=== PATIENT | male | born 1955 | race Caucasian/White ===

== ENCOUNTER 2016-11-10 20:05 | Inpatient (IN) | payer OTHER ==
[~2016-11-10] VITALS: Ht 170.2 cm; Wt 127.2 kg
[~2016-11-10 20:05] MED LIST: BUDE180A IH; PANT40TA3 PO; PRED-220 PO; PRED5TAB PO
[2016-11-10] MEDS ORDERED: ALBUTEROL SULFATE 2.5 MG/3 ML NEBU. NEB ONE (20:15)
[2016-11-10] MEDS ORDERED: IV NORMAL SALINE 1000ML BAG 1,000 ML IV SCH (20:48)
--- NOTE | 2016-11-10 20:57 | PHYS DOC ---
Past Medical History Past Medical History: Anxiety, COPD, Diabetes-Type II, Hypertension Past Surgical History: Other Additional Past Surgical Histo: leg sx, hernia Alcohol Use: Heavy Drug Use: None Adult General Chief Complaint Chief Complaint: SHORTNESS OF BREATH HPI HPI Patient is a 61 year old male who presents with complaint of shortness of breath. Patient states his symptoms became severe starting this morning. Patient has history of COPD and is currently on controller medications for his symptoms. Patient states that he has been having severe difficulty throughout the day. Patient currently is staying at [facility] who called EMS. On EMS arrival the patient was found to have an O2 sats rate of 84% on room air. Patient is not on continuous oxygen as an outpatient. The patient was taking breathing treatments prior to arrival with minimal relief in symptoms. Patient has not had any fevers and denies any chest pain currently. Patient has not had productive cough. Review of Systems Review of Systems Constitutional: Denies fever or chills [] Eyes: Denies change in visual acuity, redness, or eye pain [] HENT: Denies nasal congestion or sore throat [] Respiratory: Shortness of breath [] Cardiovascular: Denies chest pain or edema [] GI: Denies abdominal pain, nausea, vomiting, bloody stools or diarrhea [] : Denies dysuria or hematuria [] Musculoskeletal: Denies back pain or joint pain [] Integument: Denies rash or skin lesions [] Neurologic: Denies headache, focal weakness or sensory changes [] Current Medications Current Medications Current Medications Medications (Trade) Dose Ordered Sig/Neida Start Time Stop Time Status Last Admin Dose Admin Albuterol Sulfate 5 mg 5 mg 1X ONCE 11/10/16 20:15 11/10/16 20:17 DC 11/10/16 20:24 5 MG Methylprednisolone Sodium Succinate (Solu-Medrol 125mg Vial) 125 mg 1X ONCE 11/10/16 21:00 11/10/16 21:01 DC 11/10/16 21:16 125 MG Sodium Chloride (Iv Sodium Chloride 0.9% 1000ml Bag) 1,000 ml @ 100 mls/hr Q10H 11/10/16 20:48 11/11/16 06:47 11/10/16 21:17 100 MLS/HR Allergies Allergies Allergies Coded Allergies Type Severity Reaction Last Updated Verified hydrocodone Allergy Intermediate 08/13/16 Yes sweet potato Adverse Reaction Mild Nausea and Vomiting 08/13/16 Yes Physical Exam Physical Exam Constitutional: Alert, afebrile, appears in moderate to severe respiratory distress. [] HENT: Normocephalic, atraumatic, bilateral external ears normal, oropharynx moist, no oral exudates, nose normal. [] Eyes: PERRLA, EOMI, conjunctiva normal, no discharge. [] Neck: Normal range of motion, no tenderness, supple, no stridor. [] Cardiovascular: Tachycardia, regular rhythm, no murmur [] Lungs & Thorax: Moderate to severe restriction of air movement bilaterally, expiratory wheezes bilaterally, along expiratory phase [] Abdomen: Bowel sounds normal, soft, no tenderness, no masses, no pulsatile masses. [] Skin: Warm, dry, no erythema, no rash. [] Back: No tenderness, no CVA tenderness. [] Extremities: No tenderness, no cyanosis, no clubbing, ROM intact, no edema. [] Neurologic: Alert and oriented X 3, normal motor function, normal sensory function, no focal deficits noted. [] Current Patient Data Vital Signs Vital Signs Date Time Temp Pulse Resp B/P Pulse Ox O2 Delivery O2 Flow Rate FiO2 11/10/16 20:25 92 Nasal Cannula 2.0 Lab Values Laboratory Tests Test 11/10/16 20:20 White Blood Count 13.1x10^3/uL (4.0-11.0) H Red Blood Count 4.29x10^6/uL (4.30-5.70) L Hemoglobin 9.2g/dL (13.0-17.5) L Hematocrit 31.3% (39.0-53.0) L Mean Corpuscular Volume 73fL (79-100) L Mean Corpuscular Hemoglobin 22pg (25-35) L Mean Corpuscular Hemoglobin Concent 30g/dL (31-37) L Red Cell Distribution Width 21.8% (11.5-14.5) H Platelet Count 296x10^3/uL (140-400) # Neutrophils (%) (Auto) 70% (31-73) Lymphocytes (%) (Auto) 23% (24-48) L Monocytes (%) (Auto) 4% (0-9) Eosinophils (%) (Auto) 2% (0-3) Basophils (%) (Auto) 1% (0-3) Neutrophils # (Auto) 9.2x10^3uL (1.8-7.7) H Lymphocytes # (Auto) 3.1x10^3/uL (1.0-4.8) Monocytes # (Auto) 0.6x10^3/uL (0.0-1.1) Eosinophils # (Auto) 0.2x10^3/uL (0.0-0.7) Basophils # (Auto) 0.1x10^3/uL (0.0-0.2) Platelet Estimate Adequate (ADEQUATE) Polychromasia Slight Hypochromasia Mod Basophilic Stippling Present Anisocytosis Mod Microcytosis Slight Tear Drop Cells Few Ovalocytes Mod Sodium Level 139mmol/L (136-145) Potassium Level 4.4mmol/L (3.5-5.1) Chloride Level 102mmol/L (98-107) Carbon Dioxide Level 26mmol/L (21-32) Anion Gap 11 (6-14) Blood Urea Nitrogen 13mg/dL (8-26) Creatinine 0.9mg/dL (0.7-1.3) Estimated GFR (Cockcroft-Gault) 86.4 BUN/Creatinine Ratio 14 (6-20) Glucose Level 137mg/dL (70-99) H Lactic Acid Level 3.2mmol/L (0.4-2.0) H Calcium Level 8.8mg/dL (8.5-10.1) Total Bilirubin 0.1mg/dL (0.2-1.0) L Aspartate Amino Transferase (AST) 27U/L (15-37) Alanine Aminotransferase (ALT) 30U/L (16-63) Alkaline Phosphatase 104U/L (46-116) Troponin I Quantitative < 0.017ng/mL (0.000-0.055) Total Protein 6.8g/dL (6.4-8.2) Albumin 3.4g/dL (3.4-5.0) Albumin/Globulin Ratio 1.0 (1.0-1.7) Laboratory Tests 11/10/16 20:20 Laboratory Tests 11/10/16 20:20 EKG EKG Interpreted by me: Heart rate 113, sinus tachycardia, normal intervals, normal axis, no acute ST/T-wave abnormalities present [] Radiology/Procedures Radiology/Procedures One view AP chest x-ray interpreted by me: No infiltrate, no effusion, normal cardiac silhouette [] Course & Med Decision Making Course & Med Decision Making Pertinent Labs and Imaging studies reviewed. (See chart for details) Patient was given additional albuterol treatments and IV Solu-Medrol in the emergency department. On reevaluation, patient continues to display work of breathing and was transitioned to BiPAP. After transitioning to BiPAP, patient' s work of breathing appears improved. Patient found to have elevated white count and elevated lactic acid level. Patient's chest x-ray does not show any visible evidence of pneumonia. Patient's elevated lactic acid level may be due to prolonged hypoxia prior to treatment. I spoke with Dr. Richmond who accepted care patient in hospital. Patient will be continued on IV fluids, breathing treatments, BiPAP, and Solu-Medrol for treatment. Critical care time excluding procedures: 50 minutes Dragon Disclaimer Dragon Disclaimer This electronic medical record was generated, in whole or in part, using a voice recognition dictation system. Departure Departure Impression: Primary Impression: Acute and chronic respiratory failure Additional Impressions: Elevated lactic acid level COPD exacerbation Microcytic anemia Disposition: ADMITTED INPATIENT Admitting Physician: Other Condition: GUARDED Referrals: NO PCP (PCP) Problem Qualifiers PAUL VILLALOBOS MD Nov 10, 2016 20:57
[2016-11-10] MEDS ORDERED: methylPREDNISolone SOD SUCC PF 125 MG/2 ML VIAL. IV ONE (21:00)
[2016-11-10 21:09] LABS: BASO # 0.1 x10^3/uL (0.0-0.2); BASO % 1 % (0-3); EOS % 2 % (0-3); HEMATOCRIT 31.3 % (39.0-53.0); HEMOGLOBIN 9.2 g/dL (13.0-17.5); LYMPH # 3.1 x10^3/uL (1.0-4.8); LYMPH % 23 % (24-48); MEAN CORPUSCULAR HEMOGLOBIN 22 pg (25-35); MEAN CORPUSCULAR HGB CONC 30 g/dL (31-37); MEAN CORPUSCULAR VOLUME 73 fL (79-100); MONO % 4 % (0-9); NEUT % 70 % (31-73); PLATELET COUNT 296 x10^3/uL (140-400); RED BLOOD COUNT 4.29 x10^6/uL (4.30-5.70); RED CELL DISTRIBUTION WIDTH 21.8 % (11.5-14.5); WHITE BLOOD COUNT 13.1 x10^3/uL (4.0-11.0)
[2016-11-10 21:27] LABS: CALCIUM 8.8 mg/dL (8.5-10.1); CREATININE 0.9 mg/dL (0.7-1.3); GFR 86.4; POTASSIUM 4.4 mmol/L (3.5-5.1)
[2016-11-10 21:33] LABS: ALBUMIN 3.4 g/dL (3.4-5.0); TOTAL BILIRUBIN 0.1 mg/dL (0.2-1.0); TOTAL PROTEIN 6.8 g/dL (6.4-8.2)
[2016-11-10 21:54] LABS: OBC FLU VALID
[2016-11-10 22:12] LABS: PLT ESTIMATE ADEQUATE (ADEQUATE)
[2016-11-10 22:13] LABS: ANISOCYTOSIS MOD; HYPOCHROMIA MOD; MICROCYTOSIS SLIGHT; OVALOCYTES MOD; POLYCHROMASIA SLIGHT; TEAR DROP CELLS FEW
--- NOTE | 2016-11-10 22:28 | ACF ---
Admission Forms Criteria COPD Clinical Indications for Admission to Inpatient Care (Place 'X' for any and all applicable criteria): Admission is indicated for ANY ONE of the following (1)(2)(3): [ ]I. Acute exacerbation by high-risk comorbidity (e.g., pneumonia, dysrhythmia, heart failure, pleural effusion, pneumothorax) or severe underlying COPD (e.g., steroid dependent) [X]II. Inpatient admission required rather than observation care (see Chronic Obstructive Pulmonary Disease: Observation Care) because of ANY ONE of the following: [X]a) New or pre-existing signs or symptoms of COPD (eg, dyspnea or Tachypnea at rest or with minimal activity) that persist despite outpatient and observation care treatment [ ]b) New-onset hypoxemia (room air SaO2 less than 90%, PO2 less than 60 mm Hg (8.0 kPa)) that persists despite outpatient and observation care treatment [ ]c) Worsening of pre-existing hypoxemia (eg, new or increased requirement for supplemental oxygen to maintain oxygenation at baseline level) that persists despite outpatient and observation care treatment, with oxygen treatment needs performable only in acute inpatient setting [ ]d) Hypercarbia (PCO2 greater than 40 mm Hg (5.3 kPa))-induced respiratory acidosis (pH less than 7.35) that persists despite outpatient and observation care treatment [ ]e) Supplemental oxygen or respiratory treatments for over 24 hours that are performable only in acute inpatient setting [ ]f) Chest tube placement with active evacuation (e.g., suction, drainage) (5) [ ]g) Other condition, treatment or monitoring requiring inpatient admission [ ]III. Planned invasive surgical or diagnostic procedures requiring acute- care hospitalization [ ]IV. Acute respiratory failure (e.g., uncompensated hypercarbia, severe hypoxemia) [ ]V. Severe comorbid condition (e.g., severe steroid myopathy, acute vertebral fracture) that has acutely worsened pulmonary function [ ]. Confusion state, lethargy, obtundation, stupor or coma Extended stay beyond goal length of stay may be needed for (31)(32): [ ]a ) Respiratory Failure. [ ]b) Severe or persisting hypoxemia or hypercarbia [ ]c) Severe or persistent dyspnea [ ]d) Comorbidities (e.g. chronic heart failure, atrial fibrillation with rapid response, pneumonia) [ ]e) Malnutrition The original [facility] content created by [facility] has been revised. The portions of the content which have been revised are identified through the use of italic text or in bold, and [facility] has neither reviewed nor approved the modified material. All other unmodified content is copyright [facility]. Please see references footnoted in the original [facility] edition 2016 ELIDIA FRYE Nov 10, 2016 22:28
[2016-11-10] MEDS ORDERED: LEVOFLOXACIN PER PHARMACY MC PRN (22:45)
[2016-11-10 22:48] LABS: HCO3 ABG 23 mmol/L (21-28); PCO2 ABG 40 mmHg (35-46); PH ABG 7.38 (7.35-7.45); PO2 ABG 101 mmHg (65-108); SAT O2 ABG 96 % (92-99)
[2016-11-10] MEDS ORDERED: ACETAMINOPHEN 325 MG TABLET. PO PRN (23:00)
[2016-11-10] MEDS: IV NORMAL SALINE 1000ML BAG 1,000 ML IV SCH (23:00)
[2016-11-10] MEDS ORDERED: ONDANSETRON PF 4 MG/2 ML VIAL. IV PRN (23:00)
[2016-11-10 23:10] VITALS: BP 100/46
--- NOTE | 2016-11-10 23:26 | ACF ---
Admission Forms Criteria RESPIRATORY FAILURE [facility] Clinical Indications for Admission to Inpatient Care (Place 'X' for any and all applicable criteria): Hospital admission is needed for appropriate care of the patient because of acute respiratory failure or insufficiency as indicated by ANY ONE of the following(1)(2)(3)(4)(5)(6)(7)(8): [X]I. Mechanical ventilation needed (acute invasive or noninvasive) [ ]II. Severe ventilation deficit as indicated by ANY ONE of the following (9) [ ]a) Respiratory acidosis (pH less than 7.32 and partial pressure of carbon dioxide greater than 40 mm Hg (5.3 kPa)) [ ]b) Partial pressure of carbon dioxide greater than 44 mm Hg (5.9 kPa ) (new) [ ]c) Airflow measurements less than 25% of predicted (eg, peak expiratory flow rate less than 100 L/minute) [ ]d) Forced vital capacity less than 15 mL/kg of ideal body weight, or 50% decrease in vital capacity from baseline [ ]III. Noncardiac pulmonary edema not resolving with rapid emergency treatment (8) [ ]IV. Severe respiratory distress as indicated by ANY ONE of the following: [ ]a) Severe tachypnea (respiratory rate greater than 30, greater than 45 for 6-month-old, greater than 60 for ) [ ]b) Severe hypoxemia (partial pressure of oxygen less than 50 mm Hg ( 6.7 kPa) on greater than 50% oxygen or partial pressure of oxygen to FIO2 ratio less than 200) [ ]c) Mental status deterioration from respiratory disease [ ]V. Airway obstruction or inadequate protection [A](10)(11) The original [employer] content created by [employer] has been revised. The portions of the content which have been revised are identified through the use of italic text or in bold, and [employer] has neither reviewed nor approved the modified material. All other unmodified content is copyright [employer]. Please see references footnoted in the original [employer] edition 2016 Admission Criteria Met?: Yes ELIDIA FRYE Nov 10, 2016 23:26
[2016-11-11 00:15] LABS: CKMB MASS 1.5 ng/mL (0.0-3.6)
[2016-11-11] MEDS: ALPRAZolam 0.5 MG TABLET PO PRN (00:51)
[2016-11-11] MEDS: methylPREDNISolone SOD SUCC PF 40 MG/ML VIAL. IV SCH ×5 (00:55→23:20)
--- NOTE | 2016-11-11 01:23 | EKG ---
[facility] [address] [place] [address] Test Date: 2016-11-10 Test Time: 20:15:56 Pat Name: EMILY PERDOMO Department: Room: [facility] Gender: M Gemologist: : 1955 Requested By: PAUL VILLALOBOS Order Number: [id number] Reading MD: Job Stephens Measurements Intervals [place] Rate: 113 P: NC: QRS: 60 QRSD: 78 T: 79 QT: 332 QTc: 461 Interpretive Statements SINUS TACHYCARDIA NON-SPECIFIC ST/T CHANGES Electronically Signed On 11-12-2016 8:17:56 CDT by Job Stephens
[2016-11-11 03:00] VITALS: BP 120/67
[2016-11-11 07:00] VITALS: BP 111/63
[2016-11-11] MEDS: IPRATRPIUM/ALBUTEROL 0.5/2.5MG 3 ML NEBU. NEB SCH ×4 (07:24→19:30)
--- NOTE | 2016-11-11 08:32 | RAD ---
Portable chest, 11/10/2016: History: Dyspnea Comparison is made to a study from 08/07/2016. The heart size and pulmonary vascularity are normal. The patient positioning is lordotic. Hazy opacities projected over the lower chest are likely on a technical basis in this large patient. No definite infiltrates or pleural fluid is seen. IMPRESSION: No acute cardiopulmonary abnormality is detected.
[2016-11-11 08:48] LABS: CALCIUM 8.9 mg/dL (8.5-10.1); CREATININE 0.8 mg/dL (0.7-1.3); GFR 98.9; POTASSIUM 4.4 mmol/L (3.5-5.1)
[2016-11-11 08:52] LABS: BASO % 0 % (0-3); EOS % 0 % (0-3); HEMATOCRIT 31.6 % (39.0-53.0); HEMOGLOBIN 9.5 g/dL (13.0-17.5); LYMPH # 1.8 x10^3/uL (1.0-4.8); LYMPH % 14 % (24-48); MEAN CORPUSCULAR HEMOGLOBIN 22 pg (25-35); MEAN CORPUSCULAR HGB CONC 30 g/dL (31-37); MEAN CORPUSCULAR VOLUME 72 fL (79-100); MONO % 1 % (0-9); NEUT % 85 % (31-73); PLATELET COUNT 291 x10^3/uL (140-400); RED BLOOD COUNT 4.41 x10^6/uL (4.30-5.70); RED CELL DISTRIBUTION WIDTH 22.2 % (11.5-14.5); WHITE BLOOD COUNT 12.6 x10^3/uL (4.0-11.0)
[2016-11-11] MEDS: IV NORMAL SALINE 1000ML BAG 1,000 ML IV SCH ×2 (09:04→15:00)
[2016-11-11 09:39] LABS: ANISOCYTOSIS PRESENT; HYPOCHROMIA PRESENT; MICROCYTOSIS PRESENT; PLT ESTIMATE ADEQUATE (ADEQUATE); POLYCHROMASIA PRESENT
--- NOTE | 2016-11-11 09:51 | PDOC1 ---
History and Physical Past Medical History Cardiovascular: HTN Pulmonary: COPD, Pneumonia GI: Other Psych: Addictions Past Surgical History Past Surgical History: Other Family History Family History: No Significant, Hypertension Social History Smoke: <1 pack per day ALCOHOL: occassional Drugs: Marijuana Current Problem List Problem List Problems Medical Problems: (1) Acute and chronic respiratory failure Status: Acute (2) COPD exacerbation Status: Acute (3) Elevated lactic acid level Status: Acute (4) Microcytic anemia Status: Acute Current Medications Current Medications Current Medications Medications (Trade) Dose Ordered Sig/Neida Start Time Stop Time Status Last Admin Dose Admin Acetaminophen (Tylenol) 650 mg PRN Q4HRS PRN 11/10/16 23:00 11/11/16 22:59 Albuterol Sulfate (Ventolin Neb Soln) 5 mg 1X ONCE 11/10/16 20:15 11/10/16 20:17 DC 11/10/16 20:24 5 MG Albuterol/ Ipratropium (Duoneb) 3 ml RTQID 11/11/16 08:00 11/12/16 07:59 11/11/16 07:24 3 ML Alprazolam (Xanax) 0.5 mg PRN Q8HRS PRN 11/11/16 00:30 11/11/16 00:51 0.5 MG Levofloxacin/ Dextrose (LEVAQUIN 500mg PREMIX) 100 ml @ 100 mls/hr Q24H 11/11/16 21:00 Levofloxacin/ Dextrose 1 each 1 each PRN DAILY PRN 11/10/16 22:45 Methylprednisolone Sodium Succinate (Solu-Medrol 40mg Vial) 60 mg Q6HRS 11/11/16 00:00 11/11/16 05:53 60 MG Methylprednisolone Sodium Succinate (Solu-Medrol 125mg Vial) 125 mg 1X ONCE 11/10/16 21:00 11/10/16 21:01 DC 11/10/16 21:16 125 MG Ondansetron HCl 4 mg 4 mg PRN Q8HRS PRN 11/10/16 23:00 11/11/16 22:59 Sodium Chloride (Iv Sodium Chloride 0.9% 1000ml Bag) 1,000 ml @ 125 mls/hr Q8H 11/10/16 23:00 11/11/16 22:59 11/11/16 09:04 125 MLS/HR Allergies Allergies Allergies Coded Allergies Type Severity Reaction Last Updated Verified hydrocodone Allergy Intermediate 08/13/16 Yes sweet potato Adverse Reaction Mild Nausea and Vomiting 08/13/16 Yes ROS Review of System CONSTITUTIONAL: No fever or chills EYES: No recent changes SKIN: No rash or itching CARDIOVASCULAR: No chest pain, syncope, palpitations, or edema RESPIRATORY: SOB or cough GASTROINTESTINAL: No nausea, vomiting or abdominal pain NEUROLOGICAL: No headaches or weakness ENDOCRINE: No cold or heat intolerance GENITOURINARY: No urgency or frequency of urination MUSCULOSKELETAL: No back pain or joint pain LYMPHATICS: No enlarged lymph nodes PSYCHIATRIC: No anxiety or depression Physical Exam Physical Exam GEN.: apparent distress. Alert and oriented.OBESE, ON BIPAP HEENT: Head is normocephalic, atraumatic NECK: Supple. NO JVD LUNGS: decreased BS, WHEEZING EXP HEART: RRR, S1, S2 present. Peripheral pulses intact ABDOMEN: Soft, nontender. Positive bowel sounds. EXTREMITIES: Without any cyanosis. NEUROLOGIC: Normal speech, normal tone PSYCHIATRIC: Normal affect, normal mood. SKIN: DRY Vitals Vitals Vital Signs Date Time Temp Pulse Resp B/P Pulse Ox O2 Delivery O2 Flow Rate FiO2 11/11/16 07:26 Nasal Cannula 2.0 11/11/16 07:24 100 11/11/16 07:00 97.3 94 24 111/63 97.3 Labs Labs Laboratory Tests Test 11/10/16 20:20 11/10/16 21:24 11/10/16 22:34 11/11/16 08:10 White Blood Count 13.1x10^3/uL (4.0-11.0) 12.6x10^3/uL (4.0-11.0) Red Blood Count 4.29x10^6/uL (4.30-5.70) 4.41x10^6/uL (4.30-5.70) Hemoglobin 9.2g/dL (13.0-17.5) 9.5g/dL (13.0-17.5) Hematocrit 31.3% (39.0-53.0) 31.6% (39.0-53.0) Mean Corpuscular Volume 73fL (79-100) 72fL (79-100) Mean Corpuscular Hemoglobin 22pg (25-35) 22pg (25-35) Mean Corpuscular Hemoglobin Concent 30g/dL (31-37) 30g/dL (31-37) Red Cell Distribution Width 21.8% (11.5-14.5) 22.2% (11.5-14.5) Platelet Count 296x10^3/uL (140-400) 291x10^3/uL (140-400) Neutrophils (%) (Auto) 70% (31-73) 85% (31-73) Lymphocytes (%) (Auto) 23% (24-48) 14% (24-48) Monocytes (%) (Auto) 4% (0-9) 1% (0-9) Eosinophils (%) (Auto) 2% (0-3) 0% (0-3) Basophils (%) (Auto) 1% (0-3) 0% (0-3) Neutrophils # (Auto) 9.2x10^3uL (1.8-7.7) 10.6x10^3uL (1.8-7.7) Lymphocytes # (Auto) 3.1x10^3/uL (1.0-4.8) 1.8x10^3/uL (1.0-4.8) Monocytes # (Auto) 0.6x10^3/uL (0.0-1.1) 0.1x10^3/uL (0.0-1.1) Eosinophils # (Auto) 0.2x10^3/uL (0.0-0.7) 0.1x10^3/uL (0.0-0.7) Basophils # (Auto) 0.1x10^3/uL (0.0-0.2) 0.0x10^3/uL (0.0-0.2) Platelet Estimate Adequate (ADEQUATE) Adequate (ADEQUATE) Polychromasia Slight Present Hypochromasia Mod Present Basophilic Stippling Present Anisocytosis Mod Present Microcytosis Slight Present Tear Drop Cells Few Ovalocytes Mod Sodium Level 139mmol/L (136-145) 139mmol/L (136-145) Potassium Level 4.4mmol/L (3.5-5.1) 4.4mmol/L (3.5-5.1) Chloride Level 102mmol/L (98-107) 103mmol/L (98-107) Carbon Dioxide Level 26mmol/L (21-32) 23mmol/L (21-32) Anion Gap 11 (6-14) 13 (6-14) Blood Urea Nitrogen 13mg/dL (8-26) 11mg/dL (8-26) Creatinine 0.9mg/dL (0.7-1.3) 0.8mg/dL (0.7-1.3) Estimated GFR (Cockcroft-Gault) 86.4 98.9 BUN/Creatinine Ratio 14 (6-20) Glucose Level 137mg/dL (70-99) 206mg/dL (70-99) Lactic Acid Level 3.2mmol/L (0.4-2.0) 2.7mmol/L (0.4-2.0) Calcium Level 8.8mg/dL (8.5-10.1) 8.9mg/dL (8.5-10.1) Total Bilirubin 0.1mg/dL (0.2-1.0) Aspartate Amino Transf (AST/SGOT) 27U/L (15-37) Alanine Aminotransferase (ALT/SGPT) 30U/L (16-63) Alkaline Phosphatase 104U/L (46-116) Creatine Kinase 117U/L (39-308) Creatine Kinase MB (Mass) 1.5ng/mL (0.0-3.6) Creatine Kinase MB Relative Index 1.3% (0-4) Troponin I Quantitative < 0.017ng/mL (0.000-0.055) RD-Ilx-O-Type Natriuretic Peptide 636pg/mL (0-124) Total Protein 6.8g/dL (6.4-8.2) Albumin 3.4g/dL (3.4-5.0) Albumin/Globulin Ratio 1.0 (1.0-1.7) Influenza Type A Antigen Negative (NEGATIVE) Influenza Type B Antigen Negative (NEGATIVE) O2 Saturation 96% (92-99) Arterial Blood pH 7.38 (7.35-7.45) Arterial Blood pCO2 at Patient Temp 40mmHg (35-46) Arterial Blood pO2 at Patient Temp 101mmHg (65-108) Arterial Blood HCO3 23mmol/L (21-28) Arterial Blood Base Excess -2mmol/L (-3-3) Segmented Neutrophils % 89% (35-66) Band Neutrophils % 3% (0-9) Lymphocytes % 5% (24-48) Monocytes % 3% (0-10) Test 11/11/16 08:48 Glucose (Fingerstick) 202mg/dL (70-99) Laboratory Tests Test 11/10/16 20:20 11/10/16 21:24 11/10/16 22:34 11/11/16 08:10 White Blood Count 13.1x10^3/uL (4.0-11.0) 12.6x10^3/uL (4.0-11.0) Red Blood Count 4.29x10^6/uL (4.30-5.70) 4.41x10^6/uL (4.30-5.70) Hemoglobin 9.2g/dL (13.0-17.5) 9.5g/dL (13.0-17.5) Hematocrit 31.3% (39.0-53.0) 31.6% (39.0-53.0) Mean Corpuscular Volume 73fL (79-100) 72fL (79-100) Mean Corpuscular Hemoglobin 22pg (25-35) 22pg (25-35) Mean Corpuscular Hemoglobin Concent 30g/dL (31-37) 30g/dL (31-37) Red Cell Distribution Width 21.8% (11.5-14.5) 22.2% (11.5-14.5) Platelet Count 296x10^3/uL (140-400) 291x10^3/uL (140-400) Neutrophils (%) (Auto) 70% (31-73) 85% (31-73) Lymphocytes (%) (Auto) 23% (24-48) 14% (24-48) Monocytes (%) (Auto) 4% (0-9) 1% (0-9) Eosinophils (%) (Auto) 2% (0-3) 0% (0-3) Basophils (%) (Auto) 1% (0-3) 0% (0-3) Neutrophils # (Auto) 9.2x10^3uL (1.8-7.7) 10.6x10^3uL (1.8-7.7) Lymphocytes # (Auto) 3.1x10^3/uL (1.0-4.8) 1.8x10^3/uL (1.0-4.8) Monocytes # (Auto) 0.6x10^3/uL (0.0-1.1) 0.1x10^3/uL (0.0-1.1) Eosinophils # (Auto) 0.2x10^3/uL (0.0-0.7) 0.1x10^3/uL (0.0-0.7) Basophils # (Auto) 0.1x10^3/uL (0.0-0.2) 0.0x10^3/uL (0.0-0.2) Platelet Estimate Adequate (ADEQUATE) Adequate (ADEQUATE) Polychromasia Slight Present Hypochromasia Mod Present Basophilic Stippling Present Anisocytosis Mod Present Microcytosis Slight Present Tear Drop Cells Few Ovalocytes Mod Sodium Level 139mmol/L (136-145) 139mmol/L (136-145) Potassium Level 4.4mmol/L (3.5-5.1) 4.4mmol/L (3.5-5.1) Chloride Level 102mmol/L (98-107) 103mmol/L (98-107) Carbon Dioxide Level 26mmol/L (21-32) 23mmol/L (21-32) Anion Gap 11 (6-14) 13 (6-14) Blood Urea Nitrogen 13mg/dL (8-26) 11mg/dL (8-26) Creatinine 0.9mg/dL (0.7-1.3) 0.8mg/dL (0.7-1.3) Estimated GFR (Cockcroft-Gault) 86.4 98.9 BUN/Creatinine Ratio 14 (6-20) Glucose Level 137mg/dL (70-99) 206mg/dL (70-99) Lactic Acid Level 3.2mmol/L (0.4-2.0) 2.7mmol/L (0.4-2.0) Calcium Level 8.8mg/dL (8.5-10.1) 8.9mg/dL (8.5-10.1) Total Bilirubin 0.1mg/dL (0.2-1.0) Aspartate Amino Transf (AST/SGOT) 27U/L (15-37) Alanine Aminotransferase (ALT/SGPT) 30U/L (16-63) Alkaline Phosphatase 104U/L (46-116) Creatine Kinase 117U/L (39-308) Creatine Kinase MB (Mass) 1.5ng/mL (0.0-3.6) Creatine Kinase MB Relative Index 1.3% (0-4) Troponin I Quantitative < 0.017ng/mL (0.000-0.055) MG-Odf-G-Type Natriuretic Peptide 636pg/mL (0-124) Total Protein 6.8g/dL (6.4-8.2) Albumin 3.4g/dL (3.4-5.0) Albumin/Globulin Ratio 1.0 (1.0-1.7) Influenza Type A Antigen Negative (NEGATIVE) Influenza Type B Antigen Negative (NEGATIVE) O2 Saturation 96% (92-99) Arterial Blood pH 7.38 (7.35-7.45) Arterial Blood pCO2 at Patient Temp 40mmHg (35-46) Arterial Blood pO2 at Patient Temp 101mmHg (65-108) Arterial Blood HCO3 23mmol/L (21-28) Arterial Blood Base Excess -2mmol/L (-3-3) Segmented Neutrophils % 89% (35-66) Band Neutrophils % 3% (0-9) Lymphocytes % 5% (24-48) Monocytes % 3% (0-10) Test 11/11/16 08:48 Glucose (Fingerstick) 202mg/dL (70-99) VTE Prophylaxis Ordered VTE Prophylaxis Devices: Yes VTE Pharmacological Prophylaxi: Yes ANA COOL MD Nov 11, 2016 09:51
[2016-11-11] MEDS ORDERED: ACETAMINOPHEN 325 MG TABLET. PO PRN (10:00)
[2016-11-11] MEDS ORDERED: ONDANSETRON PF 4 MG/2 ML VIAL. IV PRN (10:00)
[2016-11-11] MEDS ORDERED: hydrALAZINE 20 MG/ML VIAL. IVP PRN (10:00)
[2016-11-11 11:00] VITALS: BP 102/69
[2016-11-11] MEDS: BUDESONIDE 0.5 MG/2 ML NEBU. NEB SCH ×2 (12:00→19:30)
[2016-11-11] MEDS: PANTOPRAZOLE 40 MG TABLET.DR. PO SCH (12:52)
[2016-11-11] MEDS ORDERED: NICOTINE 21MG PATCH. TD PRN (14:45)
[2016-11-11 15:00] VITALS: BP 117/59
[2016-11-11] MEDS ORDERED: ENOXAPARIN 40 MG/0.4 ML SYRINGE. SQ SCH (15:00)
--- NOTE | 2016-11-11 17:23 | PDOC ---
PULMONARY PROGRESS NOTES Vitals Vital Signs Date Time Temp Pulse Resp B/P Pulse Ox O2 Delivery O2 Flow Rate FiO2 11/11/16 11:35 Nasal Cannula 4.0 11/11/16 11:00 98.2 88 22 102/69 96 98.2 General: Alert, No acute distress Lungs: Clear Cardiovascular: S1, S2 Abdomen: Soft, Non-tender Extremities: Other Labs Laboratory Tests Test 11/10/16 20:20 11/10/16 21:24 11/10/16 22:34 11/11/16 04:00 White Blood Count 13.1x10^3/uL (4.0-11.0) Red Blood Count 4.29x10^6/uL (4.30-5.70) Hemoglobin 9.2g/dL (13.0-17.5) Hematocrit 31.3% (39.0-53.0) Mean Corpuscular Volume 73fL (79-100) Mean Corpuscular Hemoglobin 22pg (25-35) Mean Corpuscular Hemoglobin Concent 30g/dL (31-37) Red Cell Distribution Width 21.8% (11.5-14.5) Platelet Count 296x10^3/uL (140-400) Neutrophils (%) (Auto) 70% (31-73) Lymphocytes (%) (Auto) 23% (24-48) Monocytes (%) (Auto) 4% (0-9) Eosinophils (%) (Auto) 2% (0-3) Basophils (%) (Auto) 1% (0-3) Neutrophils # (Auto) 9.2x10^3uL (1.8-7.7) Lymphocytes # (Auto) 3.1x10^3/uL (1.0-4.8) Monocytes # (Auto) 0.6x10^3/uL (0.0-1.1) Eosinophils # (Auto) 0.2x10^3/uL (0.0-0.7) Basophils # (Auto) 0.1x10^3/uL (0.0-0.2) Platelet Estimate Adequate (ADEQUATE) Polychromasia Slight Hypochromasia Mod Basophilic Stippling Present Anisocytosis Mod Microcytosis Slight Tear Drop Cells Few Ovalocytes Mod Sodium Level 139mmol/L (136-145) Potassium Level 4.4mmol/L (3.5-5.1) Chloride Level 102mmol/L (98-107) Carbon Dioxide Level 26mmol/L (21-32) Anion Gap 11 (6-14) Blood Urea Nitrogen 13mg/dL (8-26) Creatinine 0.9mg/dL (0.7-1.3) Estimated GFR (Cockcroft-Gault) 86.4 BUN/Creatinine Ratio 14 (6-20) Glucose Level 137mg/dL (70-99) Lactic Acid Level 3.2mmol/L (0.4-2.0) Calcium Level 8.8mg/dL (8.5-10.1) Total Bilirubin 0.1mg/dL (0.2-1.0) Aspartate Amino Transf (AST/SGOT) 27U/L (15-37) Alanine Aminotransferase (ALT/SGPT) 30U/L (16-63) Alkaline Phosphatase 104U/L (46-116) Creatine Kinase 117U/L (39-308) Creatine Kinase MB (Mass) 1.5ng/mL (0.0-3.6) Creatine Kinase MB Relative Index 1.3% (0-4) Troponin I Quantitative < 0.017ng/mL (0.000-0.055) VR-Nsz-G-Type Natriuretic Peptide 636pg/mL (0-124) Total Protein 6.8g/dL (6.4-8.2) Albumin 3.4g/dL (3.4-5.0) Albumin/Globulin Ratio 1.0 (1.0-1.7) Influenza Type A Antigen Negative (NEGATIVE) Influenza Type B Antigen Negative (NEGATIVE) O2 Saturation 96% (92-99) Arterial Blood pH 7.38 (7.35-7.45) Arterial Blood pCO2 at Patient Temp 40mmHg (35-46) Arterial Blood pO2 at Patient Temp 101mmHg (65-108) Arterial Blood HCO3 23mmol/L (21-28) Arterial Blood Base Excess -2mmol/L (-3-3) Nasal Screen MRSA (PCR) Negative (Negative) Test 11/11/16 08:10 11/11/16 08:48 11/11/16 12:23 11/11/16 16:45 White Blood Count 12.6x10^3/uL (4.0-11.0) Red Blood Count 4.41x10^6/uL (4.30-5.70) Hemoglobin 9.5g/dL (13.0-17.5) Hematocrit 31.6% (39.0-53.0) Mean Corpuscular Volume 72fL (79-100) Mean Corpuscular Hemoglobin 22pg (25-35) Mean Corpuscular Hemoglobin Concent 30g/dL (31-37) Red Cell Distribution Width 22.2% (11.5-14.5) Platelet Count 291x10^3/uL (140-400) Neutrophils (%) (Auto) 85% (31-73) Lymphocytes (%) (Auto) 14% (24-48) Monocytes (%) (Auto) 1% (0-9) Eosinophils (%) (Auto) 0% (0-3) Basophils (%) (Auto) 0% (0-3) Neutrophils # (Auto) 10.6x10^3uL (1.8-7.7) Lymphocytes # (Auto) 1.8x10^3/uL (1.0-4.8) Monocytes # (Auto) 0.1x10^3/uL (0.0-1.1) Eosinophils # (Auto) 0.1x10^3/uL (0.0-0.7) Basophils # (Auto) 0.0x10^3/uL (0.0-0.2) Segmented Neutrophils % 89% (35-66) Band Neutrophils % 3% (0-9) Lymphocytes % 5% (24-48) Monocytes % 3% (0-10) Platelet Estimate Adequate (ADEQUATE) Polychromasia Present Hypochromasia Present Anisocytosis Present Microcytosis Present Sodium Level 139mmol/L (136-145) Potassium Level 4.4mmol/L (3.5-5.1) Chloride Level 103mmol/L (98-107) Carbon Dioxide Level 23mmol/L (21-32) Anion Gap 13 (6-14) Blood Urea Nitrogen 11mg/dL (8-26) Creatinine 0.8mg/dL (0.7-1.3) Estimated GFR (Cockcroft-Gault) 98.9 Glucose Level 206mg/dL (70-99) Lactic Acid Level 2.7mmol/L (0.4-2.0) Calcium Level 8.9mg/dL (8.5-10.1) Glucose (Fingerstick) 202mg/dL (70-99) 168mg/dL (70-99) 216mg/dL (70-99) Laboratory Tests Test 11/10/16 20:20 11/10/16 21:24 11/10/16 22:34 11/11/16 04:00 White Blood Count 13.1x10^3/uL (4.0-11.0) Red Blood Count 4.29x10^6/uL (4.30-5.70) Hemoglobin 9.2g/dL (13.0-17.5) Hematocrit 31.3% (39.0-53.0) Mean Corpuscular Volume 73fL (79-100) Mean Corpuscular Hemoglobin 22pg (25-35) Mean Corpuscular Hemoglobin Concent 30g/dL (31-37) Red Cell Distribution Width 21.8% (11.5-14.5) Platelet Count 296x10^3/uL (140-400) Neutrophils (%) (Auto) 70% (31-73) Lymphocytes (%) (Auto) 23% (24-48) Monocytes (%) (Auto) 4% (0-9) Eosinophils (%) (Auto) 2% (0-3) Basophils (%) (Auto) 1% (0-3) Neutrophils # (Auto) 9.2x10^3uL (1.8-7.7) Lymphocytes # (Auto) 3.1x10^3/uL (1.0-4.8) Monocytes # (Auto) 0.6x10^3/uL (0.0-1.1) Eosinophils # (Auto) 0.2x10^3/uL (0.0-0.7) Basophils # (Auto) 0.1x10^3/uL (0.0-0.2) Platelet Estimate Adequate (ADEQUATE) Polychromasia Slight Hypochromasia Mod Basophilic Stippling Present Anisocytosis Mod Microcytosis Slight Tear Drop Cells Few Ovalocytes Mod Sodium Level 139mmol/L (136-145) Potassium Level 4.4mmol/L (3.5-5.1) Chloride Level 102mmol/L (98-107) Carbon Dioxide Level 26mmol/L (21-32) Anion Gap 11 (6-14) Blood Urea Nitrogen 13mg/dL (8-26) Creatinine 0.9mg/dL (0.7-1.3) Estimated GFR (Cockcroft-Gault) 86.4 BUN/Creatinine Ratio 14 (6-20) Glucose Level 137mg/dL (70-99) Lactic Acid Level 3.2mmol/L (0.4-2.0) Calcium Level 8.8mg/dL (8.5-10.1) Total Bilirubin 0.1mg/dL (0.2-1.0) Aspartate Amino Transf (AST/SGOT) 27U/L (15-37) Alanine Aminotransferase (ALT/SGPT) 30U/L (16-63) Alkaline Phosphatase 104U/L (46-116) Creatine Kinase 117U/L (39-308) Creatine Kinase MB (Mass) 1.5ng/mL (0.0-3.6) Creatine Kinase MB Relative Index 1.3% (0-4) Troponin I Quantitative < 0.017ng/mL (0.000-0.055) WP-Pec-M-Type Natriuretic Peptide 636pg/mL (0-124) Total Protein 6.8g/dL (6.4-8.2) Albumin 3.4g/dL (3.4-5.0) Albumin/Globulin Ratio 1.0 (1.0-1.7) Influenza Type A Antigen Negative (NEGATIVE) Influenza Type B Antigen Negative (NEGATIVE) O2 Saturation 96% (92-99) Arterial Blood pH 7.38 (7.35-7.45) Arterial Blood pCO2 at Patient Temp 40mmHg (35-46) Arterial Blood pO2 at Patient Temp 101mmHg (65-108) Arterial Blood HCO3 23mmol/L (21-28) Arterial Blood Base Excess -2mmol/L (-3-3) Nasal Screen MRSA (PCR) Negative (Negative) Test 11/11/16 08:10 11/11/16 08:48 11/11/16 12:23 11/11/16 16:45 White Blood Count 12.6x10^3/uL (4.0-11.0) Red Blood Count 4.41x10^6/uL (4.30-5.70) Hemoglobin 9.5g/dL (13.0-17.5) Hematocrit 31.6% (39.0-53.0) Mean Corpuscular Volume 72fL (79-100) Mean Corpuscular Hemoglobin 22pg (25-35) Mean Corpuscular Hemoglobin Concent 30g/dL (31-37) Red Cell Distribution Width 22.2% (11.5-14.5) Platelet Count 291x10^3/uL (140-400) Neutrophils (%) (Auto) 85% (31-73) Lymphocytes (%) (Auto) 14% (24-48) Monocytes (%) (Auto) 1% (0-9) Eosinophils (%) (Auto) 0% (0-3) Basophils (%) (Auto) 0% (0-3) Neutrophils # (Auto) 10.6x10^3uL (1.8-7.7) Lymphocytes # (Auto) 1.8x10^3/uL (1.0-4.8) Monocytes # (Auto) 0.1x10^3/uL (0.0-1.1) Eosinophils # (Auto) 0.1x10^3/uL (0.0-0.7) Basophils # (Auto) 0.0x10^3/uL (0.0-0.2) Segmented Neutrophils % 89% (35-66) Band Neutrophils % 3% (0-9) Lymphocytes % 5% (24-48) Monocytes % 3% (0-10) Platelet Estimate Adequate (ADEQUATE) Polychromasia Present Hypochromasia Present Anisocytosis Present Microcytosis Present Sodium Level 139mmol/L (136-145) Potassium Level 4.4mmol/L (3.5-5.1) Chloride Level 103mmol/L (98-107) Carbon Dioxide Level 23mmol/L (21-32) Anion Gap 13 (6-14) Blood Urea Nitrogen 11mg/dL (8-26) Creatinine 0.8mg/dL (0.7-1.3) Estimated GFR (Cockcroft-Gault) 98.9 Glucose Level 206mg/dL (70-99) Lactic Acid Level 2.7mmol/L (0.4-2.0) Calcium Level 8.9mg/dL (8.5-10.1) Glucose (Fingerstick) 202mg/dL (70-99) 168mg/dL (70-99) 216mg/dL (70-99) Medications Active Scripts Medications Dose Route/Sig Days Date Category Prednisone 5 Mg Tablet 5 Mg PO 08/14/16 Reported Protonix (Pantoprazole Sodium) 40 Mg Tablet.dr 1 Tab PO DAILY 08/14/16 Rx Pulmicort Flexhaler (Budesonide) 180 Mcg Aer.pow.ba 2 Puff IH BID 08/14/16 Rx Impression . NOTE DICTATED AGREE WITH CURRENT RX ASA AECOPD AMBER AVERY MD Nov 11, 2016 17:23
[2016-11-11 19:00] VITALS: BP 104/47
--- NOTE | 2016-11-11 19:22 | HP ---
ADMIT DATE: 11/11/2016 CHIEF COMPLAINT: Shortness of breath. HISTORY OF PRESENT ILLNESS: A 61-year-old male patient with chronic respiratory failure, COPD, type 2 diabetes mellitus, sleep apnea, hypertension, presented to the ER with complaints of shortness of breath. Symptoms started yesterday morning, acute on onset. The patient usually takes some maintenance inhalers; however, his symptoms did not improve. He is currently living at the [facility] and at the time of EMS arrival, his saturations were 84% on room air. At the time of my examination, the patient was on BiPAP and he states his symptoms are getting better. He denies any chest pain or palpitations. His shortness of breath is better. He is an active smoker, currently smoking less than 1-2 packs a day. PAST MEDICAL HISTORY: Anxiety, COPD, sleep apnea, type 2 diabetes mellitus and hypertension. PERSONAL HISTORY: Current smoker, heavy alcoholic, no substance abuse. PAST SURGICAL HISTORY: Leg surgery, hernia surgery. FAMILY HISTORY: Hypertension. REVIEW OF SYSTEMS AND PHYSICAL EXAMINATION: Please see my electronic H and P. ALLERGIES: HYDROCODONE, SWEET POTATO. LABORATORY FINDINGS: WBC 12.6, hemoglobin is 9.5, MCV is 72, MCHC is 30, platelets 291. Chemistry: Sodium 139, potassium 4.4, chloride is 103, anion gap is 13, BUN is 11, creatinine is 0.8 and glucose is 206. Blood gases at presentation: Oxygen is 96, pH is 7.3, pCO2 of 40, pO2 is 101, FIO2 is not noted. IMAGING STUDIES: Chest x-ray showed no acute cardiopulmonary process seen. ASSESSMENT: 1. [id number]-[id number] respiratory failure. 2. Suspected chronic obstructive pulmonary disease exacerbation. 3. Anemia. 4. Hypertension. 5. Morbid obesity, BMI of 43. 6. Sleep apnea. PLAN: 1. The patient has been admitted to the hospital for an increased work of breathing and respiratory distress. The patient has been placed on BiPAP. His symptoms have been improving. The patient has sleep apnea; however, he has noncompliance with recommendations. He has been actively smoking and currently he was placed on IV Solu-Medrol and periodic nebulizations. Also, he was placed on Levaquin and Pulmicort. Pulmonology has been consulted. We will continue periodic bronchodilators and nebulizations. 2. Sliding scale insulin. 3. P.r.n. hydralazine for hypertension. Currently, his blood pressure is controlled. 4. Nicotine patch. 5. Overall prognosis is guarded. ANA COOL MD DR: ANDREINA/thom JOB#: [id number] / [id number] SARAH
[2016-11-11] MEDS: ENOXAPARIN 40 MG/0.4 ML SYRINGE. SQ SCH (20:19)
[2016-11-11] MEDS ORDERED: NON FORMULARY ITEM (Budesonide (Pulmicort Flexhaler) 2 PUFF) IH SCH (21:00)
[2016-11-11] MEDS ORDERED: DEXTROSE 50% 25 GM / 50ML DISP.SYRIN. IV PRN (21:45)
[2016-11-11 23:05] VITALS: BP 106/44
[2016-11-12 03:00] VITALS: BP 113/53
[2016-11-12] MEDS: ALPRAZolam 0.5 MG TABLET PO PRN ×2 (03:45→20:50)
[2016-11-12] MEDS: ALBUTEROL SULFATE 2.5 MG/3 ML NEBU. NEB PRN ×2 (03:59→17:31)
[2016-11-12 04:04] LABS: BASO % 0 % (0-3); EOS % 0 % (0-3); HEMATOCRIT 30.9 % (39.0-53.0); HEMOGLOBIN 9.1 g/dL (13.0-17.5); LYMPH # 1.7 x10^3/uL (1.0-4.8); LYMPH % 11 % (24-48); MEAN CORPUSCULAR HEMOGLOBIN 21 pg (25-35); MEAN CORPUSCULAR HGB CONC 29 g/dL (31-37); MEAN CORPUSCULAR VOLUME 73 fL (79-100); MONO % 5 % (0-9); NEUT % 85 % (31-73); PLATELET COUNT 274 x10^3/uL (140-400); RED BLOOD COUNT 4.26 x10^6/uL (4.30-5.70); RED CELL DISTRIBUTION WIDTH 22.5 % (11.5-14.5); WHITE BLOOD COUNT 15.9 x10^3/uL (4.0-11.0)
[2016-11-12 04:05] LABS: CREATININE 0.6 mg/dL (0.7-1.3); GFR 137.9; POTASSIUM 4.4 mmol/L (3.5-5.1)
[2016-11-12] MEDS: methylPREDNISolone SOD SUCC PF 40 MG/ML VIAL. IV SCH ×2 (05:19→11:22)
--- NOTE | 2016-11-12 05:44 | CONS ---
DATE OF CONSULTATION: ATTENDING PHYSICIAN: Dr. Brnad. REASON FOR CONSULTATION: The patient is seen in pulmonary consultation at the request of Dr. Brand for increasing shortness of air, requiring BiPAP. HISTORY OF PRESENT ILLNESS: The patient is a 61-year-old that presented with increasing shortness of breath over the last 2-3 days. He normally sees a physician at the [facility]. He wears CPAP at night with no oxygen supplementation. He smoked 2 cigars per day, quit tobacco some time ago. He does not wear oxygen supplementation at home. He presented with shortness of air. He was placed on BiPAP. Arterial blood gas revealed a pH of 7.38, PaCO2 of 40. X-ray was reviewed, there is no acute infiltrates. He had influenza serology, which was negative. The patient denies fever, chills or night sweats. PAST MEDICAL HISTORY: COPD, morbid obesity, obstructive sleep apnea, diabetes, hypertension. HOME MEDICATIONS: List was reviewed. FAMILY HISTORY: Positive for hypertension. REVIEW OF SYSTEMS: As indicated above, otherwise, a 10-point system was reviewed and negative. CURRENT MEDICATION: List was likewise reviewed. PHYSICAL EXAMINATION: GENERAL: Morbid obese individual on BiPAP, in no respiratory distress. VITAL SIGNS: Stable. O2 saturation greater than 92%. HEENT: Eyes, the sclerae were nonicteric. NECK: Jugular venous distention was not elevated. No lymphadenopathy. CHEST: Full expansion. LUNGS: Poor airway flow with expiratory wheeze. CARDIOVASCULAR: Regular rate and rhythm with S1, S2, no S3. ABDOMEN: Soft, nontender, nondistended. EXTREMITIES: No clubbing, cyanosis or edema. NEUROLOGIC: The patient was awake, alert, following commands. A detailed neuro exam was not performed. Chest x-ray reviewed. Labs were reviewed. IMPRESSION: 1. Acute respiratory failure secondary to acute exacerbation of chronic obstructive pulmonary disease. 2. Acute exacerbation of chronic obstructive pulmonary disease. 3. Suspect secondary pulmonary hypertension. 4. Obstructive sleep apnea. 5. Tobacco dependent. 6. Morbid obesity. 7. Diabetes. PLAN: 1. Recommend continue BiPAP and oxygen supplementation to maintain sats above 90%. 2. Continue Levaquin and steroids. 3. Nebulized treatments. 4. DVT prophylaxis. I do appreciate the privilege in sharing in the patient's care. AMBER AVERY MD DR: Biju JOB#: [id number] / [id number]
[2016-11-12 07:00] VITALS: BP 118/64
[2016-11-12] MEDS: BUDESONIDE 0.5 MG/2 ML NEBU. NEB SCH ×2 (07:06→20:17)
[2016-11-12] MEDS: IPRATRPIUM/ALBUTEROL 0.5/2.5MG 3 ML NEBU. NEB SCH ×2 (07:06→20:17)
[2016-11-12] MEDS: INSULIN ASPART 300 UNITS/3 ML INSULN.PEN SQ SCH ×4 (08:00→20:56)
[2016-11-12] MEDS: ENOXAPARIN 40 MG/0.4 ML SYRINGE. SQ SCH ×2 (09:00→20:56)
[2016-11-12] MEDS: PANTOPRAZOLE 40 MG TABLET.DR. PO SCH (09:00)
[2016-11-12 10:46] VITALS: BP 126/59
--- NOTE | 2016-11-12 12:40 | PDOC ---
PROGRESS NOTES Chief Complaint Chief Complaint 1. [id number] respiratory failure. 2. Suspected chronic obstructive pulmonary disease exacerbation. 3. Anemia. 4. Hypertension. 5. Morbid obesity, BMI of 43. 6. Sleep apnea. Plan continue BIPAP IV solumedrol periodic nebulizations po Levaquin Avoid sedatives PO steroids, Vitals Vitals Vital Signs Date Time Temp Pulse Resp B/P Pulse Ox O2 Delivery O2 Flow Rate FiO2 11/12/16 10:55 97 BiPAP/CPAP 11/12/16 10:46 97.5 99 20 126/59 97.5 11/12/16 07:00 Physical Exam General: Alert, Oriented X3 Heart: Normal S1, Normal S2 Lungs: Clear, Wheezing Labs LABS Laboratory Tests Test 11/11/16 16:45 11/11/16 20:45 11/12/16 03:25 11/12/16 07:07 Glucose (Fingerstick) 216mg/dL (70-99) 187mg/dL (70-99) 139mg/dL (70-99) White Blood Count 15.9x10^3/uL (4.0-11.0) Red Blood Count 4.26x10^6/uL (4.30-5.70) Hemoglobin 9.1g/dL (13.0-17.5) Hematocrit 30.9% (39.0-53.0) Mean Corpuscular Volume 73fL (79-100) Mean Corpuscular Hemoglobin 21pg (25-35) Mean Corpuscular Hemoglobin Concent 29g/dL (31-37) Red Cell Distribution Width 22.5% (11.5-14.5) Platelet Count 274x10^3/uL (140-400) Neutrophils (%) (Auto) 85% (31-73) Lymphocytes (%) (Auto) 11% (24-48) Monocytes (%) (Auto) 5% (0-9) Eosinophils (%) (Auto) 0% (0-3) Basophils (%) (Auto) 0% (0-3) Neutrophils # (Auto) 13.4x10^3uL (1.8-7.7) Lymphocytes # (Auto) 1.7x10^3/uL (1.0-4.8) Monocytes # (Auto) 0.8x10^3/uL (0.0-1.1) Eosinophils # (Auto) 0.0x10^3/uL (0.0-0.7) Basophils # (Auto) 0.0x10^3/uL (0.0-0.2) Sodium Level 139mmol/L (136-145) Potassium Level 4.4mmol/L (3.5-5.1) Chloride Level 104mmol/L (98-107) Carbon Dioxide Level 29mmol/L (21-32) Anion Gap 6 (6-14) Blood Urea Nitrogen 14mg/dL (8-26) Creatinine 0.6mg/dL (0.7-1.3) Estimated GFR (Cockcroft-Gault) 137.9 Glucose Level 171mg/dL (70-99) Calcium Level 9.0mg/dL (8.5-10.1) Test 11/12/16 11:34 Glucose (Fingerstick) 144mg/dL (70-99) Assessment and Plan Assessmemt and Plan Problems Medical Problems: (1) Acute and chronic respiratory failure Status: Acute (2) COPD exacerbation Status: Acute (3) Elevated lactic acid level Status: Acute (4) Microcytic anemia Status: Acute Problems: Comment Review of Relevant I have reviewed the following items iron (where applicable) has been applied. Labs Laboratory Tests Test 11/10/16 20:20 11/10/16 21:24 11/10/16 22:34 11/11/16 04:00 White Blood Count 13.1x10^3/uL (4.0-11.0) Red Blood Count 4.29x10^6/uL (4.30-5.70) Hemoglobin 9.2g/dL (13.0-17.5) Hematocrit 31.3% (39.0-53.0) Mean Corpuscular Volume 73fL (79-100) Mean Corpuscular Hemoglobin 22pg (25-35) Mean Corpuscular Hemoglobin Concent 30g/dL (31-37) Red Cell Distribution Width 21.8% (11.5-14.5) Platelet Count 296x10^3/uL (140-400) Neutrophils (%) (Auto) 70% (31-73) Lymphocytes (%) (Auto) 23% (24-48) Monocytes (%) (Auto) 4% (0-9) Eosinophils (%) (Auto) 2% (0-3) Basophils (%) (Auto) 1% (0-3) Neutrophils # (Auto) 9.2x10^3uL (1.8-7.7) Lymphocytes # (Auto) 3.1x10^3/uL (1.0-4.8) Monocytes # (Auto) 0.6x10^3/uL (0.0-1.1) Eosinophils # (Auto) 0.2x10^3/uL (0.0-0.7) Basophils # (Auto) 0.1x10^3/uL (0.0-0.2) Platelet Estimate Adequate (ADEQUATE) Polychromasia Slight Hypochromasia Mod Basophilic Stippling Present Anisocytosis Mod Microcytosis Slight Tear Drop Cells Few Ovalocytes Mod Sodium Level 139mmol/L (136-145) Potassium Level 4.4mmol/L (3.5-5.1) Chloride Level 102mmol/L (98-107) Carbon Dioxide Level 26mmol/L (21-32) Anion Gap 11 (6-14) Blood Urea Nitrogen 13mg/dL (8-26) Creatinine 0.9mg/dL (0.7-1.3) Estimated GFR (Cockcroft-Gault) 86.4 BUN/Creatinine Ratio 14 (6-20) Glucose Level 137mg/dL (70-99) Lactic Acid Level 3.2mmol/L (0.4-2.0) Calcium Level 8.8mg/dL (8.5-10.1) Total Bilirubin 0.1mg/dL (0.2-1.0) Aspartate Amino Transf (AST/SGOT) 27U/L (15-37) Alanine Aminotransferase (ALT/SGPT) 30U/L (16-63) Alkaline Phosphatase 104U/L (46-116) Creatine Kinase 117U/L (39-308) Creatine Kinase MB (Mass) 1.5ng/mL (0.0-3.6) Creatine Kinase MB Relative Index 1.3% (0-4) Troponin I Quantitative < 0.017ng/mL (0.000-0.055) [id number]-Type Natriuretic Peptide 636pg/mL (0-124) Total Protein 6.8g/dL (6.4-8.2) Albumin 3.4g/dL (3.4-5.0) Albumin/Globulin Ratio 1.0 (1.0-1.7) Influenza Type A Antigen Negative (NEGATIVE) Influenza Type B Antigen Negative (NEGATIVE) O2 Saturation 96% (92-99) Arterial Blood pH 7.38 (7.35-7.45) Arterial Blood pCO2 at Patient Temp 40mmHg (35-46) Arterial Blood pO2 at Patient Temp 101mmHg (65-108) Arterial Blood HCO3 23mmol/L (21-28) Arterial Blood Base Excess -2mmol/L (-3-3) Nasal Screen MRSA (PCR) Negative (Negative) Test 11/11/16 08:10 11/11/16 08:48 11/11/16 12:23 11/11/16 16:45 White Blood Count 12.6x10^3/uL (4.0-11.0) Red Blood Count 4.41x10^6/uL (4.30-5.70) Hemoglobin 9.5g/dL (13.0-17.5) Hematocrit 31.6% (39.0-53.0) Mean Corpuscular Volume 72fL (79-100) Mean Corpuscular Hemoglobin 22pg (25-35) Mean Corpuscular Hemoglobin Concent 30g/dL (31-37) Red Cell Distribution Width 22.2% (11.5-14.5) Platelet Count 291x10^3/uL (140-400) Neutrophils (%) (Auto) 85% (31-73) Lymphocytes (%) (Auto) 14% (24-48) Monocytes (%) (Auto) 1% (0-9) Eosinophils (%) (Auto) 0% (0-3) Basophils (%) (Auto) 0% (0-3) Neutrophils # (Auto) 10.6x10^3uL (1.8-7.7) Lymphocytes # (Auto) 1.8x10^3/uL (1.0-4.8) Monocytes # (Auto) 0.1x10^3/uL (0.0-1.1) Eosinophils # (Auto) 0.1x10^3/uL (0.0-0.7) Basophils # (Auto) 0.0x10^3/uL (0.0-0.2) Segmented Neutrophils % 89% (35-66) Band Neutrophils % 3% (0-9) Lymphocytes % 5% (24-48) Monocytes % 3% (0-10) Platelet Estimate Adequate (ADEQUATE) Polychromasia Present Hypochromasia Present Anisocytosis Present Microcytosis Present Sodium Level 139mmol/L (136-145) Potassium Level 4.4mmol/L (3.5-5.1) Chloride Level 103mmol/L (98-107) Carbon Dioxide Level 23mmol/L (21-32) Anion Gap 13 (6-14) Blood Urea Nitrogen 11mg/dL (8-26) Creatinine 0.8mg/dL (0.7-1.3) Estimated GFR (Cockcroft-Gault) 98.9 Glucose Level 206mg/dL (70-99) Lactic Acid Level 2.7mmol/L (0.4-2.0) Calcium Level 8.9mg/dL (8.5-10.1) Glucose (Fingerstick) 202mg/dL (70-99) 168mg/dL (70-99) 216mg/dL (70-99) Test 11/11/16 20:45 11/12/16 03:25 11/12/16 07:07 11/12/16 11:34 Glucose (Fingerstick) 187mg/dL (70-99) 139mg/dL (70-99) 144mg/dL (70-99) White Blood Count 15.9x10^3/uL (4.0-11.0) Red Blood Count 4.26x10^6/uL (4.30-5.70) Hemoglobin 9.1g/dL (13.0-17.5) Hematocrit 30.9% (39.0-53.0) Mean Corpuscular Volume 73fL (79-100) Mean Corpuscular Hemoglobin 21pg (25-35) Mean Corpuscular Hemoglobin Concent 29g/dL (31-37) Red Cell Distribution Width 22.5% (11.5-14.5) Platelet Count 274x10^3/uL (140-400) Neutrophils (%) (Auto) 85% (31-73) Lymphocytes (%) (Auto) 11% (24-48) Monocytes (%) (Auto) 5% (0-9) Eosinophils (%) (Auto) 0% (0-3) Basophils (%) (Auto) 0% (0-3) Neutrophils # (Auto) 13.4x10^3uL (1.8-7.7) Lymphocytes # (Auto) 1.7x10^3/uL (1.0-4.8) Monocytes # (Auto) 0.8x10^3/uL (0.0-1.1) Eosinophils # (Auto) 0.0x10^3/uL (0.0-0.7) Basophils # (Auto) 0.0x10^3/uL (0.0-0.2) Sodium Level 139mmol/L (136-145) Potassium Level 4.4mmol/L (3.5-5.1) Chloride Level 104mmol/L (98-107) Carbon Dioxide Level 29mmol/L (21-32) Anion Gap 6 (6-14) Blood Urea Nitrogen 14mg/dL (8-26) Creatinine 0.6mg/dL (0.7-1.3) Estimated GFR (Cockcroft-Gault) 137.9 Glucose Level 171mg/dL (70-99) Calcium Level 9.0mg/dL (8.5-10.1) Laboratory Tests Test 11/11/16 16:45 11/11/16 20:45 11/12/16 03:25 11/12/16 07:07 Glucose (Fingerstick) 216mg/dL (70-99) 187mg/dL (70-99) 139mg/dL (70-99) White Blood Count 15.9x10^3/uL (4.0-11.0) Red Blood Count 4.26x10^6/uL (4.30-5.70) Hemoglobin 9.1g/dL (13.0-17.5) Hematocrit 30.9% (39.0-53.0) Mean Corpuscular Volume 73fL (79-100) Mean Corpuscular Hemoglobin 21pg (25-35) Mean Corpuscular Hemoglobin Concent 29g/dL (31-37) Red Cell Distribution Width 22.5% (11.5-14.5) Platelet Count 274x10^3/uL (140-400) Neutrophils (%) (Auto) 85% (31-73) Lymphocytes (%) (Auto) 11% (24-48) Monocytes (%) (Auto) 5% (0-9) Eosinophils (%) (Auto) 0% (0-3) Basophils (%) (Auto) 0% (0-3) Neutrophils # (Auto) 13.4x10^3uL (1.8-7.7) Lymphocytes # (Auto) 1.7x10^3/uL (1.0-4.8) Monocytes # (Auto) 0.8x10^3/uL (0.0-1.1) Eosinophils # (Auto) 0.0x10^3/uL (0.0-0.7) Basophils # (Auto) 0.0x10^3/uL (0.0-0.2) Sodium Level 139mmol/L (136-145) Potassium Level 4.4mmol/L (3.5-5.1) Chloride Level 104mmol/L (98-107) Carbon Dioxide Level 29mmol/L (21-32) Anion Gap 6 (6-14) Blood Urea Nitrogen 14mg/dL (8-26) Creatinine 0.6mg/dL (0.7-1.3) Estimated GFR (Cockcroft-Gault) 137.9 Glucose Level 171mg/dL (70-99) Calcium Level 9.0mg/dL (8.5-10.1) Test 11/12/16 11:34 Glucose (Fingerstick) 144mg/dL (70-99) Microbiology 11/10/16 Blood Culture - Preliminary, Resulted NO GROWTH AFTER 1 DAY Medications Current Medications Albuterol Sulfate 5 mg 5 mg 1X ONCE NEB Last administered on 11/10/16 20:24; Start 11/10/16 at 20:15; Stop 11/10/16 at 20:17; Status DC Sodium Chloride (Iv Sodium Chloride 0.9% 1000ml Bag) 1,000 ml @ 100 mls/hr Q10H IV Last administered on 11/10/16 21:17; Start 11/10/16 at 20:48; Stop at 06:47; Status DC Methylprednisolone Sodium Succinate (Solu-Medrol 125mg Vial) 125 mg 1X ONCE IV Last administered on 11/10/16 21:16; Start 11/10/16 at 21:00; Stop 11/10/16 at 21:01; Status DC Ondansetron HCl 4 mg 4 mg PRN Q8HRS PRN IV NAUSEA/VOMITING; Start 11/10/16 at 23:00; Stop 11/11/16 at 22:59; Status DC Sodium Chloride (Iv Sodium Chloride 0.9% 1000ml Bag) 1,000 ml @ 125 mls/hr Q8H IV Last administered on 11/11/16 09:04; Start 11/10/16 at 23:00; Stop at 22:59; Status DC Acetaminophen (Tylenol) 650 mg PRN Q4HRS PRN PO FEVER; Start 11/10/16 at 23:00 ; Stop 11/11/16 at 22:59; Status DC Albuterol/ Ipratropium (Duoneb) 3 ml RTQID NEB Last administered on 11/12/16 07:06; Start 11/11/16 at 08:00; Stop 11/12/16 at 07:59; Status DC Methylprednisolone Sodium Succinate (Solu-Medrol 40mg Vial) 60 mg Q6HRS IV Last administered on 11/11/16 12:53; Start 11/11/16 at 00:00 Levofloxacin/ Dextrose 1 each 1 each PRN DAILY PRN MC SEE COMMENTS; Start 11/10 at 22:45 Levofloxacin/ Dextrose 100 ml @ 100 mls/hr ONCE ONCE IV Last administered on 11/10/16 23:37; Start 11/10/16 at 23:15; Stop 11/11/16 at 00:14; Status DC Levofloxacin/ Dextrose (LEVAQUIN 500mg PREMIX) 100 ml @ 100 mls/hr Q24H IV ; Start 11/11/16 at 21:00 Alprazolam (Xanax) 0.5 mg PRN Q8HRS PRN PO ANXIETY / AGITATION Last administered on 11/12/16 03:45; Start 11/11/16 at 00:30 Acetaminophen (Tylenol) 325 mg PRN Q6HRS PRN PO MILD PAIN / TEMP; Start at 10:00 Hydralazine HCl (Apresoline) 10 mg PRN Q4HRS PRN IVP ELEVATED BP, SEE COMMENTS ; Start 11/11/16 at 10:00 Ondansetron HCl (Zofran) 4 mg PRN Q8HRS PRN IV NAUSEA/VOMITING; Start 11/11/16 at 10:00 Albuterol Sulfate (Ventolin Neb Soln) 2.5 mg PRN Q4HRS PRN NEB SHORTNESS OF BREATH Last administered on 11/12/16 03:59; Start 11/11/16 at 10:00 Pantoprazole Sodium (Protonix) 40 mg DAILY PO Last administered on 11/11/16 12 :52; Start 11/11/16 at 12:00 Non-Formulary Medication 2 puff BID IH ; Start 11/11/16 at 21:00; Status UNV Budesonide (Pulmicort) 0.5 mg RTBID NEB Last administered on 11/12/16 07:06; Start 11/11/16 at 12:00 Nicotine (Nicoderm Cq 21mg) 1 patch PRN DAILY PRN TD SMOKING CESSATION; Start 11/11/16 at 14:45 Enoxaparin Sodium (Lovenox 40mg Syringe) 40 mg Q24H SQ ; Start 11/11/16 at 15:00 ; Stop 11/11/16 at 17:45; Status DC Enoxaparin Sodium (Lovenox 40mg Syringe) 40 mg BID SQ ; Start 11/11/16 at 21:00 Insulin Aspart (Novolog) 0-7 UNITS TIDWMEALHC SQ ; Start 11/12/16 at 08:00 Dextrose (Dextrose 50%-Water Syringe) 12.5 gm PRN Q15MIN PRN IV SEE COMMENTS; Start 11/11/16 at 21:45 Active Scripts Active Protonix (Pantoprazole Sodium) 40 Mg Tablet.dr 1 Tab PO DAILY Pulmicort Flexhaler (Budesonide) 180 Mcg Aer.pow.ba 2 Puff IH BID Reported Prednisone 5 Mg Tablet 5 Mg PO Vitals/I & O Vital Sign - Last 24 Hours 11/11/16 11/11/16 11/11/16 11/11/16 15:00 19:00 19:20 19:48 Temp 98.2 98.3 98.2 98.3 Pulse 62 101 Resp 22 20 B/P 117/59 104/47 Pulse Ox 98 98 98 O2 Delivery BiPAP/CPAP BiPAP/CPAP BiPAP/CPAP Bi-pap O2 Flow Rate 4.0 11/11/16 11/11/16 11/12/16 11/12/16 23:05 23:05 00:41 03:00 Temp 98.5 98.5 98.5 98.5 Pulse 99 103 Resp 20 20 B/P 106/44 113/53 Pulse Ox 97 98 97 96 O2 Delivery BiPAP/CPAP BiPAP/CPAP BiPAP/CPAP BiPAP/CPAP 11/12/16 11/12/16 11/12/16 11/12/16 03:22 03:58 04:56 07:00 Temp 97.5 97.5 Pulse 100 Resp 25 B/P 118/64 Pulse Ox 97 O2 Delivery BiPAP/CPAP BiPAP/CPAP BiPAP/CPAP BiPAP/CPAP O2 Flow Rate 11/12/16 11/12/16 11/12/16 11/12/16 07:06 07:51 08:58 10:46 Temp 97.5 97.5 Pulse 99 Resp 20 B/P 126/59 Pulse Ox 97 97 99 O2 Delivery BiPAP/CPAP Bi-pap BiPAP/CPAP BiPAP/CPAP 11/12/16 10:55 Pulse Ox 97 O2 Delivery BiPAP/CPAP Intake and Output 11/11/16 11/11/16 11/12/16 15:00 23:00 07:00 Intake Total 360 ml 600 ml 400 ml Output Total 450 ml 1400 ml 700 ml Balance -90 ml -800 ml -300 ml ANA COOL MD Nov 12, 2016 12:40
[2016-11-12 14:35] VITALS: BP 129/61
--- NOTE | 2016-11-12 15:32 | PDOC ---
PULMONARY PROGRESS NOTES Subjective pt still soa on bipap unable to tolerated being off bipap Vitals Vital Signs Date Time Temp Pulse Resp B/P Pulse Ox O2 Delivery O2 Flow Rate FiO2 11/12/16 14:57 97 BiPAP/CPAP 11/12/16 14:35 97.5 94 24 129/61 97.5 11/12/16 07:00 General: Alert, No acute distress Lungs: Clear Cardiovascular: S1, S2 Abdomen: Soft, Non-tender Neuro Exam: Alert Extremities: No Edema Skin: Warm Labs Laboratory Tests Test 11/10/16 20:20 11/10/16 21:24 11/10/16 22:34 11/11/16 04:00 White Blood Count 13.1x10^3/uL (4.0-11.0) Red Blood Count 4.29x10^6/uL (4.30-5.70) Hemoglobin 9.2g/dL (13.0-17.5) Hematocrit 31.3% (39.0-53.0) Mean Corpuscular Volume 73fL (79-100) Mean Corpuscular Hemoglobin 22pg (25-35) Mean Corpuscular Hemoglobin Concent 30g/dL (31-37) Red Cell Distribution Width 21.8% (11.5-14.5) Platelet Count 296x10^3/uL (140-400) Neutrophils (%) (Auto) 70% (31-73) Lymphocytes (%) (Auto) 23% (24-48) Monocytes (%) (Auto) 4% (0-9) Eosinophils (%) (Auto) 2% (0-3) Basophils (%) (Auto) 1% (0-3) Neutrophils # (Auto) 9.2x10^3uL (1.8-7.7) Lymphocytes # (Auto) 3.1x10^3/uL (1.0-4.8) Monocytes # (Auto) 0.6x10^3/uL (0.0-1.1) Eosinophils # (Auto) 0.2x10^3/uL (0.0-0.7) Basophils # (Auto) 0.1x10^3/uL (0.0-0.2) Platelet Estimate Adequate (ADEQUATE) Polychromasia Slight Hypochromasia Mod Basophilic Stippling Present Anisocytosis Mod Microcytosis Slight Tear Drop Cells Few Ovalocytes Mod Sodium Level 139mmol/L (136-145) Potassium Level 4.4mmol/L (3.5-5.1) Chloride Level 102mmol/L (98-107) Carbon Dioxide Level 26mmol/L (21-32) Anion Gap 11 (6-14) Blood Urea Nitrogen 13mg/dL (8-26) Creatinine 0.9mg/dL (0.7-1.3) Estimated GFR (Cockcroft-Gault) 86.4 BUN/Creatinine Ratio 14 (6-20) Glucose Level 137mg/dL (70-99) Lactic Acid Level 3.2mmol/L (0.4-2.0) Calcium Level 8.8mg/dL (8.5-10.1) Total Bilirubin 0.1mg/dL (0.2-1.0) Aspartate Amino Transf (AST/SGOT) 27U/L (15-37) Alanine Aminotransferase (ALT/SGPT) 30U/L (16-63) Alkaline Phosphatase 104U/L (46-116) Creatine Kinase 117U/L (39-308) Creatine Kinase MB (Mass) 1.5ng/mL (0.0-3.6) Creatine Kinase MB Relative Index 1.3% (0-4) Troponin I Quantitative < 0.017ng/mL (0.000-0.055) ZD-Hnd-M-Type Natriuretic Peptide 636pg/mL (0-124) Total Protein 6.8g/dL (6.4-8.2) Albumin 3.4g/dL (3.4-5.0) Albumin/Globulin Ratio 1.0 (1.0-1.7) Influenza Type A Antigen Negative (NEGATIVE) Influenza Type B Antigen Negative (NEGATIVE) O2 Saturation 96% (92-99) Arterial Blood pH 7.38 (7.35-7.45) Arterial Blood pCO2 at Patient Temp 40mmHg (35-46) Arterial Blood pO2 at Patient Temp 101mmHg (65-108) Arterial Blood HCO3 23mmol/L (21-28) Arterial Blood Base Excess -2mmol/L (-3-3) Nasal Screen MRSA (PCR) Negative (Negative) Test 11/11/16 08:10 11/11/16 08:48 11/11/16 12:23 4/26/17 16:45 White Blood Count 12.6x10^3/uL (4.0-11.0) Red Blood Count 4.41x10^6/uL (4.30-5.70) Hemoglobin 9.5g/dL (13.0-17.5) Hematocrit 31.6% (39.0-53.0) Mean Corpuscular Volume 72fL (79-100) Mean Corpuscular Hemoglobin 22pg (25-35) Mean Corpuscular Hemoglobin Concent 30g/dL (31-37) Red Cell Distribution Width 22.2% (11.5-14.5) Platelet Count 291x10^3/uL (140-400) Neutrophils (%) (Auto) 85% (31-73) Lymphocytes (%) (Auto) 14% (24-48) Monocytes (%) (Auto) 1% (0-9) Eosinophils (%) (Auto) 0% (0-3) Basophils (%) (Auto) 0% (0-3) Neutrophils # (Auto) 10.6x10^3uL (1.8-7.7) Lymphocytes # (Auto) 1.8x10^3/uL (1.0-4.8) Monocytes # (Auto) 0.1x10^3/uL (0.0-1.1) Eosinophils # (Auto) 0.1x10^3/uL (0.0-0.7) Basophils # (Auto) 0.0x10^3/uL (0.0-0.2) Segmented Neutrophils % 89% (35-66) Band Neutrophils % 3% (0-9) Lymphocytes % 5% (24-48) Monocytes % 3% (0-10) Platelet Estimate Adequate (ADEQUATE) Polychromasia Present Hypochromasia Present Anisocytosis Present Microcytosis Present Sodium Level 139mmol/L (136-145) Potassium Level 4.4mmol/L (3.5-5.1) Chloride Level 103mmol/L (98-107) Carbon Dioxide Level 23mmol/L (21-32) Anion Gap 13 (6-14) Blood Urea Nitrogen 11mg/dL (8-26) Creatinine 0.8mg/dL (0.7-1.3) Estimated GFR (Cockcroft-Gault) 98.9 Glucose Level 206mg/dL (70-99) Lactic Acid Level 2.7mmol/L (0.4-2.0) Calcium Level 8.9mg/dL (8.5-10.1) Glucose (Fingerstick) 202mg/dL (70-99) 168mg/dL (70-99) 216mg/dL (70-99) Test 11/11/16 20:45 11/12/16 03:25 11/12/16 07:07 11/12/16 11:34 Glucose (Fingerstick) 187mg/dL (70-99) 139mg/dL (70-99) 144mg/dL (70-99) White Blood Count 15.9x10^3/uL (4.0-11.0) Red Blood Count 4.26x10^6/uL (4.30-5.70) Hemoglobin 9.1g/dL (13.0-17.5) Hematocrit 30.9% (39.0-53.0) Mean Corpuscular Volume 73fL (79-100) Mean Corpuscular Hemoglobin 21pg (25-35) Mean Corpuscular Hemoglobin Concent 29g/dL (31-37) Red Cell Distribution Width 22.5% (11.5-14.5) Platelet Count 274x10^3/uL (140-400) Neutrophils (%) (Auto) 85% (31-73) Lymphocytes (%) (Auto) 11% (24-48) Monocytes (%) (Auto) 5% (0-9) Eosinophils (%) (Auto) 0% (0-3) Basophils (%) (Auto) 0% (0-3) Neutrophils # (Auto) 13.4x10^3uL (1.8-7.7) Lymphocytes # (Auto) 1.7x10^3/uL (1.0-4.8) Monocytes # (Auto) 0.8x10^3/uL (0.0-1.1) Eosinophils # (Auto) 0.0x10^3/uL (0.0-0.7) Basophils # (Auto) 0.0x10^3/uL (0.0-0.2) Sodium Level 139mmol/L (136-145) Potassium Level 4.4mmol/L (3.5-5.1) Chloride Level 104mmol/L (98-107) Carbon Dioxide Level 29mmol/L (21-32) Anion Gap 6 (6-14) Blood Urea Nitrogen 14mg/dL (8-26) Creatinine 0.6mg/dL (0.7-1.3) Estimated GFR (Cockcroft-Gault) 137.9 Glucose Level 171mg/dL (70-99) Calcium Level 9.0mg/dL (8.5-10.1) Laboratory Tests Test 11/11/16 16:45 11/11/16 20:45 11/12/16 03:25 11/12/16 07:07 Glucose (Fingerstick) 216mg/dL (70-99) 187mg/dL (70-99) 139mg/dL (70-99) White Blood Count 15.9x10^3/uL (4.0-11.0) Red Blood Count 4.26x10^6/uL (4.30-5.70) Hemoglobin 9.1g/dL (13.0-17.5) Hematocrit 30.9% (39.0-53.0) Mean Corpuscular Volume 73fL (79-100) Mean Corpuscular Hemoglobin 21pg (25-35) Mean Corpuscular Hemoglobin Concent 29g/dL (31-37) Red Cell Distribution Width 22.5% (11.5-14.5) Platelet Count 274x10^3/uL (140-400) Neutrophils (%) (Auto) 85% (31-73) Lymphocytes (%) (Auto) 11% (24-48) Monocytes (%) (Auto) 5% (0-9) Eosinophils (%) (Auto) 0% (0-3) Basophils (%) (Auto) 0% (0-3) Neutrophils # (Auto) 13.4x10^3uL (1.8-7.7) Lymphocytes # (Auto) 1.7x10^3/uL (1.0-4.8) Monocytes # (Auto) 0.8x10^3/uL (0.0-1.1) Eosinophils # (Auto) 0.0x10^3/uL (0.0-0.7) Basophils # (Auto) 0.0x10^3/uL (0.0-0.2) Sodium Level 139mmol/L (136-145) Potassium Level 4.4mmol/L (3.5-5.1) Chloride Level 104mmol/L (98-107) Carbon Dioxide Level 29mmol/L (21-32) Anion Gap 6 (6-14) Blood Urea Nitrogen 14mg/dL (8-26) Creatinine 0.6mg/dL (0.7-1.3) Estimated GFR (Cockcroft-Gault) 137.9 Glucose Level 171mg/dL (70-99) Calcium Level 9.0mg/dL (8.5-10.1) Test 11/12/16 11:34 Glucose (Fingerstick) 144mg/dL (70-99) Medications Active Scripts Medications Dose Route/Sig Days Date Category Prednisone 5 Mg Tablet 5 Mg PO 08/14/16 Reported Protonix (Pantoprazole Sodium) 40 Mg Tablet.dr 1 Tab PO DAILY 08/14/16 Rx Pulmicort Flexhaler (Budesonide) 180 Mcg Aer.pow.ba 2 Puff IH BID 08/14/16 Rx Impression . 1. Acute respiratory failure secondary to acute exacerbation of chronic obstructive pulmonary disease. 2. Acute exacerbation of chronic obstructive pulmonary disease. 3. Suspect secondary pulmonary hypertension. 4. Obstructive sleep apnea. 5. Tobacco dependent. 6. Morbid obesity. 7. Diabetes. Plan . still soa will continue the same 1. Recommend continue BiPAP and oxygen supplementation to maintain sats above 90%. 2. Continue Levaquin and steroids. 3. Nebulized treatments. 4. DVT prophylaxis. AMBER AVERY MD Nov 12, 2016 15:31
[2016-11-12] MEDS: LEVOFLOXACIN 500 MG TABLET PO SCH (17:58)
[2016-11-12] MEDS: predniSONE 20 MG TABLET PO SCH (17:58)
[2016-11-12 19:00] VITALS: BP 122/58
[2016-11-12 23:00] VITALS: BP 117/59
[2016-11-13 04:38] LABS: BASO % 0 % (0-3); EOS % 0 % (0-3); HEMATOCRIT 33.3 % (39.0-53.0); HEMOGLOBIN 9.8 g/dL (13.0-17.5); LYMPH # 1.7 x10^3/uL (1.0-4.8); LYMPH % 12 % (24-48); MEAN CORPUSCULAR HEMOGLOBIN 21 pg (25-35); MEAN CORPUSCULAR HGB CONC 29 g/dL (31-37); MEAN CORPUSCULAR VOLUME 73 fL (79-100); MONO % 4 % (0-9); NEUT % 84 % (31-73); PLATELET COUNT 290 x10^3/uL (140-400); RED BLOOD COUNT 4.59 x10^6/uL (4.30-5.70); RED CELL DISTRIBUTION WIDTH 22.2 % (11.5-14.5); WHITE BLOOD COUNT 14.6 x10^3/uL (4.0-11.0)
[2016-11-13 05:01] LABS: CALCIUM 8.9 mg/dL (8.5-10.1); CREATININE 0.8 mg/dL (0.7-1.3); GFR 98.9; POTASSIUM 4.9 mmol/L (3.5-5.1)
[2016-11-13] MEDS: LEVOFLOXACIN 500 MG TABLET PO SCH (05:36)
[2016-11-13 07:00] VITALS: BP 131/65
[2016-11-13] MEDS: IPRATRPIUM/ALBUTEROL 0.5/2.5MG 3 ML NEBU. NEB SCH ×4 (07:15→20:55)
[2016-11-13] MEDS: BUDESONIDE 0.5 MG/2 ML NEBU. NEB SCH ×2 (07:15→20:56)
[2016-11-13] MEDS: INSULIN ASPART 300 UNITS/3 ML INSULN.PEN SQ SCH ×4 (08:00→21:00)
[2016-11-13] MEDS: PANTOPRAZOLE 40 MG TABLET.DR. PO SCH (08:17)
[2016-11-13] MEDS: predniSONE 20 MG TABLET PO SCH (08:18)
[2016-11-13] MEDS: ALPRAZolam 0.5 MG TABLET PO PRN (08:18)
[2016-11-13] MEDS: ENOXAPARIN 40 MG/0.4 ML SYRINGE. SQ SCH ×2 (08:19→21:03)
[2016-11-13 11:00] VITALS: BP 119/69
--- NOTE | 2016-11-13 14:04 | PDOC ---
PULMONARY PROGRESS NOTES Subjective pt still soa on bipap unable to tolerated being off bipap Vitals Vital Signs Date Time Temp Pulse Resp B/P Pulse Ox O2 Delivery O2 Flow Rate FiO2 11/13/16 11:06 99 BiPAP/CPAP 11/13/16 11:00 97.4 93 24 119/69 97.4 11/12/16 07:00 General: Alert, No acute distress Lungs: Clear, Wheezing Cardiovascular: S1, S2 Abdomen: Soft, Non-tender Neuro Exam: Alert Extremities: No Edema Skin: Warm Labs Laboratory Tests Test 11/11/16 16:45 11/11/16 20:45 11/12/16 03:25 11/12/16 07:07 Glucose (Fingerstick) 216mg/dL (70-99) 187mg/dL (70-99) 139mg/dL (70-99) White Blood Count 15.9x10^3/uL (4.0-11.0) Red Blood Count 4.26x10^6/uL (4.30-5.70) Hemoglobin 9.1g/dL (13.0-17.5) Hematocrit 30.9% (39.0-53.0) Mean Corpuscular Volume 73fL (79-100) Mean Corpuscular Hemoglobin 21pg (25-35) Mean Corpuscular Hemoglobin Concent 29g/dL (31-37) Red Cell Distribution Width 22.5% (11.5-14.5) Platelet Count 274x10^3/uL (140-400) Neutrophils (%) (Auto) 85% (31-73) Lymphocytes (%) (Auto) 11% (24-48) Monocytes (%) (Auto) 5% (0-9) Eosinophils (%) (Auto) 0% (0-3) Basophils (%) (Auto) 0% (0-3) Neutrophils # (Auto) 13.4x10^3uL (1.8-7.7) Lymphocytes # (Auto) 1.7x10^3/uL (1.0-4.8) Monocytes # (Auto) 0.8x10^3/uL (0.0-1.1) Eosinophils # (Auto) 0.0x10^3/uL (0.0-0.7) Basophils # (Auto) 0.0x10^3/uL (0.0-0.2) Sodium Level 139mmol/L (136-145) Potassium Level 4.4mmol/L (3.5-5.1) Chloride Level 104mmol/L (98-107) Carbon Dioxide Level 29mmol/L (21-32) Anion Gap 6 (6-14) Blood Urea Nitrogen 14mg/dL (8-26) Creatinine 0.6mg/dL (0.7-1.3) Estimated GFR (Cockcroft-Gault) 137.9 Glucose Level 171mg/dL (70-99) Calcium Level 9.0mg/dL (8.5-10.1) Test 11/12/16 11:34 11/12/16 16:18 11/12/16 20:55 11/13/16 03:50 Glucose (Fingerstick) 144mg/dL (70-99) 123mg/dL (70-99) 145mg/dL (70-99) White Blood Count 14.6x10^3/uL (4.0-11.0) Red Blood Count 4.59x10^6/uL (4.30-5.70) Hemoglobin 9.8g/dL (13.0-17.5) Hematocrit 33.3% (39.0-53.0) Mean Corpuscular Volume 73fL (79-100) Mean Corpuscular Hemoglobin 21pg (25-35) Mean Corpuscular Hemoglobin Concent 29g/dL (31-37) Red Cell Distribution Width 22.2% (11.5-14.5) Platelet Count 290x10^3/uL (140-400) Neutrophils (%) (Auto) 84% (31-73) Lymphocytes (%) (Auto) 12% (24-48) Monocytes (%) (Auto) 4% (0-9) Eosinophils (%) (Auto) 0% (0-3) Basophils (%) (Auto) 0% (0-3) Neutrophils # (Auto) 12.2x10^3uL (1.8-7.7) Lymphocytes # (Auto) 1.7x10^3/uL (1.0-4.8) Monocytes # (Auto) 0.6x10^3/uL (0.0-1.1) Eosinophils # (Auto) 0.0x10^3/uL (0.0-0.7) Basophils # (Auto) 0.0x10^3/uL (0.0-0.2) Sodium Level 139mmol/L (136-145) Potassium Level 4.9mmol/L (3.5-5.1) Chloride Level 102mmol/L (98-107) Carbon Dioxide Level 31mmol/L (21-32) Anion Gap 6 (6-14) Blood Urea Nitrogen 18mg/dL (8-26) Creatinine 0.8mg/dL (0.7-1.3) Estimated GFR (Cockcroft-Gault) 98.9 Glucose Level 142mg/dL (70-99) Calcium Level 8.9mg/dL (8.5-10.1) Test 11/13/16 07:14 11/13/16 10:54 Glucose (Fingerstick) 139mg/dL (70-99) 148mg/dL (70-99) Laboratory Tests Test 11/12/16 16:18 11/12/16 20:55 11/13/16 03:50 11/13/16 07:14 Glucose (Fingerstick) 123mg/dL (70-99) 145mg/dL (70-99) 139mg/dL (70-99) White Blood Count 14.6x10^3/uL (4.0-11.0) Red Blood Count 4.59x10^6/uL (4.30-5.70) Hemoglobin 9.8g/dL (13.0-17.5) Hematocrit 33.3% (39.0-53.0) Mean Corpuscular Volume 73fL (79-100) Mean Corpuscular Hemoglobin 21pg (25-35) Mean Corpuscular Hemoglobin Concent 29g/dL (31-37) Red Cell Distribution Width 22.2% (11.5-14.5) Platelet Count 290x10^3/uL (140-400) Neutrophils (%) (Auto) 84% (31-73) Lymphocytes (%) (Auto) 12% (24-48) Monocytes (%) (Auto) 4% (0-9) Eosinophils (%) (Auto) 0% (0-3) Basophils (%) (Auto) 0% (0-3) Neutrophils # (Auto) 12.2x10^3uL (1.8-7.7) Lymphocytes # (Auto) 1.7x10^3/uL (1.0-4.8) Monocytes # (Auto) 0.6x10^3/uL (0.0-1.1) Eosinophils # (Auto) 0.0x10^3/uL (0.0-0.7) Basophils # (Auto) 0.0x10^3/uL (0.0-0.2) Sodium Level 139mmol/L (136-145) Potassium Level 4.9mmol/L (3.5-5.1) Chloride Level 102mmol/L (98-107) Carbon Dioxide Level 31mmol/L (21-32) Anion Gap 6 (6-14) Blood Urea Nitrogen 18mg/dL (8-26) Creatinine 0.8mg/dL (0.7-1.3) Estimated GFR (Cockcroft-Gault) 98.9 Glucose Level 142mg/dL (70-99) Calcium Level 8.9mg/dL (8.5-10.1) Test 11/13/16 10:54 Glucose (Fingerstick) 148mg/dL (70-99) Medications Active Scripts Medications Dose Route/Sig Days Date Category Prednisone 5 Mg Tablet 5 Mg PO 08/14/16 Reported Protonix (Pantoprazole Sodium) 40 Mg Tablet.dr 1 Tab PO DAILY 08/14/16 Rx Pulmicort Flexhaler (Budesonide) 180 Mcg Aer.pow.ba 2 Puff IH BID 08/14/16 Rx Impression . 1. Acute respiratory failure secondary to acute exacerbation of chronic obstructive pulmonary disease. 2. Acute exacerbation of chronic obstructive pulmonary disease. 3. Suspect secondary pulmonary hypertension. 4. Obstructive sleep apnea. 5. Tobacco dependent. 6. Morbid obesity. 7. Diabetes. Plan . still soa will continue the same NEED PT DISPOSITION IS A CHALLENGE PLEASE SCREEN FOR [facility] OR SNU 1. Recommend continue BiPAP and oxygen supplementation to maintain sats above 90%. 2. Continue Levaquin and steroids. 3. Nebulized treatments. 4. DVT prophylaxis. AMBER AVERY MD Nov 13, 2016 14:04
[2016-11-13 15:00] VITALS: BP 124/78
--- NOTE | 2016-11-13 17:19 | PDOC ---
PROGRESS NOTES Chief Complaint Chief Complaint [id number] respiratory failure ASSESSMENT AND PLAN: 1. ?COPD exacerbation: steroids, nebs O2 2. GOLDEN: BiPAP 3. Hypoventilation syndrome with massive obesity 4. Anemia: microcytic, suspicious for iron deficiency. anemia labs ordered 5. HTN: by report. BPs WNL w/o meds here 6. Prophylaxis: lovenox 7. Nicotine dependence: on nicotine patch Vitals Vitals Vital Signs Date Time Temp Pulse Resp B/P Pulse Ox O2 Delivery O2 Flow Rate FiO2 11/13/16 15:26 96 Nasal Cannula 4.0 11/13/16 11:00 97.4 93 24 119/69 97.4 Physical Exam General: Alert, Oriented X3 Heart: Regular rate Lungs: Clear, Wheezing Abdomen: Normal bowel sounds, Other (massively obese) Extremities: No clubbing, No cyanosis Skin: No rashes Labs LABS Laboratory Tests Test 11/12/16 20:55 11/13/16 03:50 11/13/16 07:14 11/13/16 10:54 Glucose (Fingerstick) 145mg/dL (70-99) 139mg/dL (70-99) 148mg/dL (70-99) White Blood Count 14.6x10^3/uL (4.0-11.0) Red Blood Count 4.59x10^6/uL (4.30-5.70) Hemoglobin 9.8g/dL (13.0-17.5) Hematocrit 33.3% (39.0-53.0) Mean Corpuscular Volume 73fL (79-100) Mean Corpuscular Hemoglobin 21pg (25-35) Mean Corpuscular Hemoglobin Concent 29g/dL (31-37) Red Cell Distribution Width 22.2% (11.5-14.5) Platelet Count 290x10^3/uL (140-400) Neutrophils (%) (Auto) 84% (31-73) Lymphocytes (%) (Auto) 12% (24-48) Monocytes (%) (Auto) 4% (0-9) Eosinophils (%) (Auto) 0% (0-3) Basophils (%) (Auto) 0% (0-3) Neutrophils # (Auto) 12.2x10^3uL (1.8-7.7) Lymphocytes # (Auto) 1.7x10^3/uL (1.0-4.8) Monocytes # (Auto) 0.6x10^3/uL (0.0-1.1) Eosinophils # (Auto) 0.0x10^3/uL (0.0-0.7) Basophils # (Auto) 0.0x10^3/uL (0.0-0.2) Sodium Level 139mmol/L (136-145) Potassium Level 4.9mmol/L (3.5-5.1) Chloride Level 102mmol/L (98-107) Carbon Dioxide Level 31mmol/L (21-32) Anion Gap 6 (6-14) Blood Urea Nitrogen 18mg/dL (8-26) Creatinine 0.8mg/dL (0.7-1.3) Estimated GFR (Cockcroft-Gault) 98.9 Glucose Level 142mg/dL (70-99) Calcium Level 8.9mg/dL (8.5-10.1) Test 11/13/16 16:42 Glucose (Fingerstick) 140mg/dL (70-99) Comment Review of Relevant I have reviewed the following items iron (where applicable) has been applied. Labs Laboratory Tests Test 11/11/16 20:45 11/12/16 03:25 11/12/16 07:07 11/12/16 11:34 Glucose (Fingerstick) 187mg/dL (70-99) 139mg/dL (70-99) 144mg/dL (70-99) White Blood Count 15.9x10^3/uL (4.0-11.0) Red Blood Count 4.26x10^6/uL (4.30-5.70) Hemoglobin 9.1g/dL (13.0-17.5) Hematocrit 30.9% (39.0-53.0) Mean Corpuscular Volume 73fL (79-100) Mean Corpuscular Hemoglobin 21pg (25-35) Mean Corpuscular Hemoglobin Concent 29g/dL (31-37) Red Cell Distribution Width 22.5% (11.5-14.5) Platelet Count 274x10^3/uL (140-400) Neutrophils (%) (Auto) 85% (31-73) Lymphocytes (%) (Auto) 11% (24-48) Monocytes (%) (Auto) 5% (0-9) Eosinophils (%) (Auto) 0% (0-3) Basophils (%) (Auto) 0% (0-3) Neutrophils # (Auto) 13.4x10^3uL (1.8-7.7) Lymphocytes # (Auto) 1.7x10^3/uL (1.0-4.8) Monocytes # (Auto) 0.8x10^3/uL (0.0-1.1) Eosinophils # (Auto) 0.0x10^3/uL (0.0-0.7) Basophils # (Auto) 0.0x10^3/uL (0.0-0.2) Sodium Level 139mmol/L (136-145) Potassium Level 4.4mmol/L (3.5-5.1) Chloride Level 104mmol/L (98-107) Carbon Dioxide Level 29mmol/L (21-32) Anion Gap 6 (6-14) Blood Urea Nitrogen 14mg/dL (8-26) Creatinine 0.6mg/dL (0.7-1.3) Estimated GFR (Cockcroft-Gault) 137.9 Glucose Level 171mg/dL (70-99) Calcium Level 9.0mg/dL (8.5-10.1) Test 11/12/16 16:18 11/12/16 20:55 11/13/16 03:50 11/13/16 07:14 Glucose (Fingerstick) 123mg/dL (70-99) 145mg/dL (70-99) 139mg/dL (70-99) White Blood Count 14.6x10^3/uL (4.0-11.0) Red Blood Count 4.59x10^6/uL (4.30-5.70) Hemoglobin 9.8g/dL (13.0-17.5) Hematocrit 33.3% (39.0-53.0) Mean Corpuscular Volume 73fL (79-100) Mean Corpuscular Hemoglobin 21pg (25-35) Mean Corpuscular Hemoglobin Concent 29g/dL (31-37) Red Cell Distribution Width 22.2% (11.5-14.5) Platelet Count 290x10^3/uL (140-400) Neutrophils (%) (Auto) 84% (31-73) Lymphocytes (%) (Auto) 12% (24-48) Monocytes (%) (Auto) 4% (0-9) Eosinophils (%) (Auto) 0% (0-3) Basophils (%) (Auto) 0% (0-3) Neutrophils # (Auto) 12.2x10^3uL (1.8-7.7) Lymphocytes # (Auto) 1.7x10^3/uL (1.0-4.8) Monocytes # (Auto) 0.6x10^3/uL (0.0-1.1) Eosinophils # (Auto) 0.0x10^3/uL (0.0-0.7) Basophils # (Auto) 0.0x10^3/uL (0.0-0.2) Sodium Level 139mmol/L (136-145) Potassium Level 4.9mmol/L (3.5-5.1) Chloride Level 102mmol/L (98-107) Carbon Dioxide Level 31mmol/L (21-32) Anion Gap 6 (6-14) Blood Urea Nitrogen 18mg/dL (8-26) Creatinine 0.8mg/dL (0.7-1.3) Estimated GFR (Cockcroft-Gault) 98.9 Glucose Level 142mg/dL (70-99) Calcium Level 8.9mg/dL (8.5-10.1) Test 11/13/16 10:54 11/13/16 16:42 Glucose (Fingerstick) 148mg/dL (70-99) 140mg/dL (70-99) Laboratory Tests Test 11/12/16 20:55 11/13/16 03:50 11/13/16 07:14 11/13/16 10:54 Glucose (Fingerstick) 145mg/dL (70-99) 139mg/dL (70-99) 148mg/dL (70-99) White Blood Count 14.6x10^3/uL (4.0-11.0) Red Blood Count 4.59x10^6/uL (4.30-5.70) Hemoglobin 9.8g/dL (13.0-17.5) Hematocrit 33.3% (39.0-53.0) Mean Corpuscular Volume 73fL (79-100) Mean Corpuscular Hemoglobin 21pg (25-35) Mean Corpuscular Hemoglobin Concent 29g/dL (31-37) Red Cell Distribution Width 22.2% (11.5-14.5) Platelet Count 290x10^3/uL (140-400) Neutrophils (%) (Auto) 84% (31-73) Lymphocytes (%) (Auto) 12% (24-48) Monocytes (%) (Auto) 4% (0-9) Eosinophils (%) (Auto) 0% (0-3) Basophils (%) (Auto) 0% (0-3) Neutrophils # (Auto) 12.2x10^3uL (1.8-7.7) Lymphocytes # (Auto) 1.7x10^3/uL (1.0-4.8) Monocytes # (Auto) 0.6x10^3/uL (0.0-1.1) Eosinophils # (Auto) 0.0x10^3/uL (0.0-0.7) Basophils # (Auto) 0.0x10^3/uL (0.0-0.2) Sodium Level 139mmol/L (136-145) Potassium Level 4.9mmol/L (3.5-5.1) Chloride Level 102mmol/L (98-107) Carbon Dioxide Level 31mmol/L (21-32) Anion Gap 6 (6-14) Blood Urea Nitrogen 18mg/dL (8-26) Creatinine 0.8mg/dL (0.7-1.3) Estimated GFR (Cockcroft-Gault) 98.9 Glucose Level 142mg/dL (70-99) Calcium Level 8.9mg/dL (8.5-10.1) Test 11/13/16 16:42 Glucose (Fingerstick) 140mg/dL (70-99) Microbiology 11/10/16 Blood Culture - Preliminary, Resulted NO GROWTH AFTER 2 DAYS Medications Current Medications Albuterol Sulfate 5 mg 5 mg 1X ONCE NEB Last administered on 11/10/16t 20:24; Start 11/10/16 at 20:15; Stop 11/10/16 at 20:17; Status DC Sodium Chloride (Iv Sodium Chloride 0.9% 1000ml Bag) 1,000 ml @ 100 mls/hr Q10H IV Last administered on 11/10/16 21:17; Start 11/10/16 at 20:48; Stop at 06:47; Status DC Methylprednisolone Sodium Succinate (Solu-Medrol 125mg Vial) 125 mg 1X ONCE IV Last administered on 11/10/16 21:16; Start 11/10/16 at 21:00; Stop 11/10/16 at 21:01; Status DC Ondansetron HCl 4 mg 4 mg PRN Q8HRS PRN IV NAUSEA/VOMITING; Start 11/10/16 at 23:00; Stop 11/11/16 at 22:59; Status DC Sodium Chloride (Iv Sodium Chloride 0.9% 1000ml Bag) 1,000 ml @ 125 mls/hr Q8H IV Last administered on 11/11/16 09:04; Start 11/10/16 at 23:00; Stop at 22:59; Status DC Acetaminophen (Tylenol) 650 mg PRN Q4HRS PRN PO FEVER; Start 11/10/16 at 23:00 ; Stop 11/11/16 at 22:59; Status DC Albuterol/ Ipratropium (Duoneb) 3 ml RTQID NEB Last administered on 11/12/16 07:06; Start 11/11/16 at 08:00; Stop 11/12/16 at 07:59; Status DC Methylprednisolone Sodium Succinate (Solu-Medrol 40mg Vial) 60 mg Q6HRS IV Last administered on 11/11/16 12:53; Start 11/11/16 at 00:00; Stop 11/12/16 at 15:10; Status DC Levofloxacin/ Dextrose 1 each 1 each PRN DAILY PRN MC SEE COMMENTS; Start 11/10 at 22:45; Stop 11/12/16 at 14:52; Status DC Levofloxacin/ Dextrose 100 ml @ 100 mls/hr ONCE ONCE IV Last administered on 11/10/16 23:37; Start 11/10/16 at 23:15; Stop 11/11/16 at 00:14; Status DC Levofloxacin/ Dextrose (LEVAQUIN 500mg PREMIX) 100 ml @ 100 mls/hr Q24H IV ; Start 11/11/16 at 21:00; Stop 11/12/16 at 15:00; Status DC Alprazolam (Xanax) 0.5 mg PRN Q8HRS PRN PO ANXIETY / AGITATION Last administered on 11/13/16 08:18; Start 11/11/16 at 00:30 Acetaminophen (Tylenol) 325 mg PRN Q6HRS PRN PO MILD PAIN / TEMP Last administered on 11/12/16 20:50; Start 11/11/16 at 10:00 Hydralazine HCl (Apresoline) 10 mg PRN Q4HRS PRN IVP ELEVATED BP, SEE COMMENTS ; Start 11/11/16 at 10:00 Ondansetron HCl (Zofran) 4 mg PRN Q8HRS PRN IV NAUSEA/VOMITING; Start 11/11/16 at 10:00 Albuterol Sulfate (Ventolin Neb Soln) 2.5 mg PRN Q4HRS PRN NEB SHORTNESS OF BREATH Last administered on 11/12/16 17:31; Start 11/11/16 at 10:00 Pantoprazole Sodium (Protonix) 40 mg DAILY PO Last administered on 11/13/16 08 :17; Start 11/11/16 at 12:00 Non-Formulary Medication 2 puff BID IH ; Start 11/11/16 at 21:00; Status UNV Budesonide (Pulmicort) 0.5 mg RTBID NEB Last administered on 11/13/16 07:15; Start 11/11/16 at 12:00 Nicotine (Nicoderm Cq 21mg) 1 patch PRN DAILY PRN TD SMOKING CESSATION; Start 11/11/16 at 14:45 Enoxaparin Sodium (Lovenox 40mg Syringe) 40 mg Q24H SQ ; Start 11/11/16 at 15:00 ; Stop 11/11/16 at 17:45; Status DC Enoxaparin Sodium (Lovenox 40mg Syringe) 40 mg BID SQ Last administered on 11/13 08:19; Start 11/11/16 at 21:00 Insulin Aspart (Novolog) 0-7 UNITS [id number] SQ ; Start 11/12/16 at 08:00 Dextrose (Dextrose 50%-Water Syringe) 12.5 gm PRN Q15MIN PRN IV SEE COMMENTS; Start 11/11/16 at 21:45 Levofloxacin (Levaquin) 500 mg DAILY06 PO Last administered on 11/13/16 05:36 ; Start 11/12/16 at 15:30 Prednisone (Prednisone) 40 mg DAILY PO Last administered on 11/13/16 08:18; Start 11/12/16 at 17:00 Albuterol/ Ipratropium (Duoneb) 3 ml RTQID NEB Last administered on 11/13/16 15:24; Start 11/12/16 at 20:00 Active Scripts Active Protonix (Pantoprazole Sodium) 40 Mg Tablet.dr 1 Tab PO DAILY Pulmicort Flexhaler (Budesonide) 180 Mcg Aer.pow.ba 2 Puff IH BID Reported Prednisone 5 Mg Tablet 5 Mg PO Vitals/I & O Vital Sign - Last 24 Hours 11/12/16 11/12/16 11/12/16 11/12/16 17:32 19:00 20:00 20:17 Temp 98.4 98.4 Pulse 96 B/P 122/58 Pulse Ox 97 99 100 O2 Delivery BiPAP/CPAP BiPAP/CPAP Bi-pap BiPAP/CPAP 11/12/16 11/12/16 11/12/16 11/13/16 20:19 20:20 23:00 00:12 Temp 97.7 97.7 Pulse 87 Resp 20 B/P 117/59 Pulse Ox 100 100 96 96 O2 Delivery BiPAP/CPAP BiPAP/CPAP BiPAP/CPAP BiPAP/CPAP 11/13/16 11/13/16 11/13/16 11/13/16 02:14 04:10 07:00 07:16 Temp 97.6 97.6 Pulse 87 Resp 24 B/P 131/65 Pulse Ox 96 96 99 99 O2 Delivery BiPAP/CPAP BiPAP/CPAP Room Air BiPAP/CPAP 11/13/16 11/13/16 11/13/16 11/13/16 07:18 08:00 11:00 11:06 Temp 97.4 97.4 Pulse 93 Resp 24 B/P 119/69 Pulse Ox 99 94 99 O2 Delivery BiPAP/CPAP Bi-pap Room Air BiPAP/CPAP 11/13/16 15:26 Pulse Ox 96 O2 Delivery Nasal Cannula O2 Flow Rate 4.0 Intake and Output 11/12/16 11/12/16 11/13/16 15:00 23:00 07:00 Intake Total 360 ml 500 ml Output Total 800 ml 950 ml Balance -440 ml -450 ml PAUL VALENTIN MD Nov 13, 2016 17:19
[2016-11-13 19:59] VITALS: BP 136/65
[2016-11-13 23:51] VITALS: BP 110/51
[2016-11-14 03:59] VITALS: BP 123/59
[2016-11-14] MEDS: LEVOFLOXACIN 500 MG TABLET PO SCH (06:11)
[2016-11-14 06:38] LABS: BASO % 0 % (0-3); EOS % 0 % (0-3); HEMATOCRIT 33.9 % (39.0-53.0); HEMOGLOBIN 10.2 g/dL (13.0-17.5); LYMPH # 3.2 x10^3/uL (1.0-4.8); LYMPH % 26 % (24-48); MEAN CORPUSCULAR HEMOGLOBIN 21 pg (25-35); MEAN CORPUSCULAR HGB CONC 30 g/dL (31-37); MEAN CORPUSCULAR VOLUME 71 fL (79-100); MONO % 6 % (0-9); NEUT % 68 % (31-73); PLATELET COUNT 298 x10^3/uL (140-400); RED BLOOD COUNT 4.75 x10^6/uL (4.30-5.70); RED CELL DISTRIBUTION WIDTH 21.8 % (11.5-14.5); WHITE BLOOD COUNT 12.2 x10^3/uL (4.0-11.0)
[2016-11-14 06:42] LABS: CALCIUM 9.2 mg/dL (8.5-10.1); CREATININE 0.8 mg/dL (0.7-1.3); GFR 98.9
[2016-11-14 06:43] LABS: POTASSIUM 4.1 mmol/L (3.5-5.1)
[2016-11-14 06:58] LABS: % SAT IRON 7 % (15-34); IRON,SERUM 34 ug/dL (65-175)
[2016-11-14 07:00] VITALS: BP 132/80
[2016-11-14] MEDS: IPRATRPIUM/ALBUTEROL 0.5/2.5MG 3 ML NEBU. NEB SCH ×4 (07:27→20:33)
[2016-11-14] MEDS: BUDESONIDE 0.5 MG/2 ML NEBU. NEB SCH ×2 (07:27→20:33)
[2016-11-14] MEDS: PANTOPRAZOLE 40 MG TABLET.DR. PO SCH (09:08)
[2016-11-14] MEDS: INSULIN ASPART 300 UNITS/3 ML INSULN.PEN SQ SCH ×4 (09:08→21:00)
[2016-11-14] MEDS: ENOXAPARIN 40 MG/0.4 ML SYRINGE. SQ SCH ×2 (09:08→21:08)
[2016-11-14] MEDS: predniSONE 20 MG TABLET PO SCH (09:08)
[2016-11-14 11:00] VITALS: BP 150/62
[2016-11-14 15:00] VITALS: BP 136/78
--- NOTE | 2016-11-14 15:58 | PDOC ---
PROGRESS NOTES Chief Complaint Chief Complaint [id number] respiratory failure ASSESSMENT AND PLAN: 1. ?COPD exacerbation: steroids, nebs O2 2. GOLDEN: BiPAP, desaturation without BIPAP 3. Hypoventilation syndrome with massive obesity 4. Anemia: microcytic, suspicious for iron deficiency. anemia labs ordered 5. HTN: by report. BPs WNL w/o meds here 6. Prophylaxis: Lovenox 7. Nicotine dependence: on nicotine patch 8. [id number] respiratory failure. History of Present Illness History of Present Illness Desaturations with out bipap Vitals Vitals Vital Signs Date Time Temp Pulse Resp B/P Pulse Ox O2 Delivery O2 Flow Rate FiO2 11/14/16 15:16 100 BiPAP/CPAP 11/14/16 11:28 4.0 11/14/16 11:00 98.2 69 22 150/62 98.2 Physical Exam General: Alert, Oriented X3 Heart: Regular rate, Normal S1, Normal S2 Lungs: Clear, Wheezing Abdomen: Normal bowel sounds, Other (massively obese) Extremities: No clubbing, No cyanosis Skin: No rashes Labs LABS Laboratory Tests Test 11/13/16 16:42 11/13/16 20:37 11/14/16 04:40 11/14/16 07:13 Glucose (Fingerstick) 140mg/dL (70-99) 154mg/dL (70-99) 81mg/dL (70-99) White Blood Count 12.2x10^3/uL (4.0-11.0) Red Blood Count 4.75x10^6/uL (4.30-5.70) Hemoglobin 10.2g/dL (13.0-17.5) Hematocrit 33.9% (39.0-53.0) Mean Corpuscular Volume 71fL (79-100) Mean Corpuscular Hemoglobin 21pg (25-35) Mean Corpuscular Hemoglobin Concent 30g/dL (31-37) Red Cell Distribution Width 21.8% (11.5-14.5) Platelet Count 298x10^3/uL (140-400) Neutrophils (%) (Auto) 68% (31-73) Lymphocytes (%) (Auto) 26% (24-48) Monocytes (%) (Auto) 6% (0-9) Eosinophils (%) (Auto) 0% (0-3) Basophils (%) (Auto) 0% (0-3) Neutrophils # (Auto) 8.3x10^3uL (1.8-7.7) Lymphocytes # (Auto) 3.2x10^3/uL (1.0-4.8) Monocytes # (Auto) 0.7x10^3/uL (0.0-1.1) Eosinophils # (Auto) 0.0x10^3/uL (0.0-0.7) Basophils # (Auto) 0.0x10^3/uL (0.0-0.2) Reticulocyte Count (auto) 1.0% (0.5-2.5) Sodium Level 140mmol/L (136-145) Potassium Level 4.1mmol/L (3.5-5.1) Chloride Level 100mmol/L (98-107) Carbon Dioxide Level 31mmol/L (21-32) Anion Gap 9 (6-14) Blood Urea Nitrogen 16mg/dL (8-26) Creatinine 0.8mg/dL (0.7-1.3) Estimated GFR (Cockcroft-Gault) 98.9 Glucose Level 103mg/dL (70-99) Calcium Level 9.2mg/dL (8.5-10.1) Iron Level 34ug/dL (65-175) Total Iron Binding Capacity 473ug/dL (250-450) Iron Saturation 7% (15-34) Ferritin 14ng/mL (26-388) Test 11/14/16 11:16 Glucose (Fingerstick) 102mg/dL (70-99) Assessment and Plan Assessmemt and Plan Problems Medical Problems: (1) Acute and chronic respiratory failure Status: Acute (2) COPD exacerbation Status: Acute (3) Elevated lactic acid level Status: Acute (4) Microcytic anemia Status: Acute Problems: Comment Review of Relevant I have reviewed the following items iron (where applicable) has been applied. Labs Laboratory Tests Test 11/12/16 16:18 11/12/16 20:55 11/13/16 03:50 11/13/16 07:14 Glucose (Fingerstick) 123mg/dL (70-99) 145mg/dL (70-99) 139mg/dL (70-99) White Blood Count 14.6x10^3/uL (4.0-11.0) Red Blood Count 4.59x10^6/uL (4.30-5.70) Hemoglobin 9.8g/dL (13.0-17.5) Hematocrit 33.3% (39.0-53.0) Mean Corpuscular Volume 73fL (79-100) Mean Corpuscular Hemoglobin 21pg (25-35) Mean Corpuscular Hemoglobin Concent 29g/dL (31-37) Red Cell Distribution Width 22.2% (11.5-14.5) Platelet Count 290x10^3/uL (140-400) Neutrophils (%) (Auto) 84% (31-73) Lymphocytes (%) (Auto) 12% (24-48) Monocytes (%) (Auto) 4% (0-9) Eosinophils (%) (Auto) 0% (0-3) Basophils (%) (Auto) 0% (0-3) Neutrophils # (Auto) 12.2x10^3uL (1.8-7.7) Lymphocytes # (Auto) 1.7x10^3/uL (1.0-4.8) Monocytes # (Auto) 0.6x10^3/uL (0.0-1.1) Eosinophils # (Auto) 0.0x10^3/uL (0.0-0.7) Basophils # (Auto) 0.0x10^3/uL (0.0-0.2) Sodium Level 139mmol/L (136-145) Potassium Level 4.9mmol/L (3.5-5.1) Chloride Level 102mmol/L (98-107) Carbon Dioxide Level 31mmol/L (21-32) Anion Gap 6 (6-14) Blood Urea Nitrogen 18mg/dL (8-26) Creatinine 0.8mg/dL (0.7-1.3) Estimated GFR (Cockcroft-Gault) 98.9 Glucose Level 142mg/dL (70-99) Calcium Level 8.9mg/dL (8.5-10.1) Test 11/13/16 10:54 11/13/16 16:42 11/13/16 20:37 11/14/16 04:40 Glucose (Fingerstick) 148mg/dL (70-99) 140mg/dL (70-99) 154mg/dL (70-99) White Blood Count 12.2x10^3/uL (4.0-11.0) Red Blood Count 4.75x10^6/uL (4.30-5.70) Hemoglobin 10.2g/dL (13.0-17.5) Hematocrit 33.9% (39.0-53.0) Mean Corpuscular Volume 71fL (79-100) Mean Corpuscular Hemoglobin 21pg (25-35) Mean Corpuscular Hemoglobin Concent 30g/dL (31-37) Red Cell Distribution Width 21.8% (11.5-14.5) Platelet Count 298x10^3/uL (140-400) Neutrophils (%) (Auto) 68% (31-73) Lymphocytes (%) (Auto) 26% (24-48) Monocytes (%) (Auto) 6% (0-9) Eosinophils (%) (Auto) 0% (0-3) Basophils (%) (Auto) 0% (0-3) Neutrophils # (Auto) 8.3x10^3uL (1.8-7.7) Lymphocytes # (Auto) 3.2x10^3/uL (1.0-4.8) Monocytes # (Auto) 0.7x10^3/uL (0.0-1.1) Eosinophils # (Auto) 0.0x10^3/uL (0.0-0.7) Basophils # (Auto) 0.0x10^3/uL (0.0-0.2) Reticulocyte Count (auto) 1.0% (0.5-2.5) Sodium Level 140mmol/L (136-145) Potassium Level 4.1mmol/L (3.5-5.1) Chloride Level 100mmol/L (98-107) Carbon Dioxide Level 31mmol/L (21-32) Anion Gap 9 (6-14) Blood Urea Nitrogen 16mg/dL (8-26) Creatinine 0.8mg/dL (0.7-1.3) Estimated GFR (Cockcroft-Gault) 98.9 Glucose Level 103mg/dL (70-99) Calcium Level 9.2mg/dL (8.5-10.1) Iron Level 34ug/dL (65-175) Total Iron Binding Capacity 473ug/dL (250-450) Iron Saturation 7% (15-34) Ferritin 14ng/mL (26-388) Test 11/14/16 07:13 11/14/16 11:16 Glucose (Fingerstick) 81mg/dL (70-99) 102mg/dL (70-99) Laboratory Tests Test 11/13/16 16:42 11/13/16 20:37 11/14/16 04:40 11/14/16 07:13 Glucose (Fingerstick) 140mg/dL (70-99) 154mg/dL (70-99) 81mg/dL (70-99) White Blood Count 12.2x10^3/uL (4.0-11.0) Red Blood Count 4.75x10^6/uL (4.30-5.70) Hemoglobin 10.2g/dL (13.0-17.5) Hematocrit 33.9% (39.0-53.0) Mean Corpuscular Volume 71fL (79-100) Mean Corpuscular Hemoglobin 21pg (25-35) Mean Corpuscular Hemoglobin Concent 30g/dL (31-37) Red Cell Distribution Width 21.8% (11.5-14.5) Platelet Count 298x10^3/uL (140-400) Neutrophils (%) (Auto) 68% (31-73) Lymphocytes (%) (Auto) 26% (24-48) Monocytes (%) (Auto) 6% (0-9) Eosinophils (%) (Auto) 0% (0-3) Basophils (%) (Auto) 0% (0-3) Neutrophils # (Auto) 8.3x10^3uL (1.8-7.7) Lymphocytes # (Auto) 3.2x10^3/uL (1.0-4.8) Monocytes # (Auto) 0.7x10^3/uL (0.0-1.1) Eosinophils # (Auto) 0.0x10^3/uL (0.0-0.7) Basophils # (Auto) 0.0x10^3/uL (0.0-0.2) Reticulocyte Count (auto) 1.0% (0.5-2.5) Sodium Level 140mmol/L (136-145) Potassium Level 4.1mmol/L (3.5-5.1) Chloride Level 100mmol/L (98-107) Carbon Dioxide Level 31mmol/L (21-32) Anion Gap 9 (6-14) Blood Urea Nitrogen 16mg/dL (8-26) Creatinine 0.8mg/dL (0.7-1.3) Estimated GFR (Cockcroft-Gault) 98.9 Glucose Level 103mg/dL (70-99) Calcium Level 9.2mg/dL (8.5-10.1) Iron Level 34ug/dL (65-175) Total Iron Binding Capacity 473ug/dL (250-450) Iron Saturation 7% (15-34) Ferritin 14ng/mL (26-388) Test 11/14/16 11:16 Glucose (Fingerstick) 102mg/dL (70-99) Microbiology 11/10/16 Blood Culture - Preliminary, Resulted NO GROWTH AFTER 3 DAYS Medications Current Medications Albuterol Sulfate 5 mg 5 mg 1X ONCE NEB Last administered on 11/10/16 20:24; Start 11/10/16 at 20:15; Stop 11/10/16 at 20:17; Status DC Sodium Chloride (Iv Sodium Chloride 0.9% 1000ml Bag) 1,000 ml @ 100 mls/hr Q10H IV Last administered on 11/10/16 21:17; Start 11/10/16 at 20:48; Stop at 06:47; Status DC Methylprednisolone Sodium Succinate (Solu-Medrol 125mg Vial) 125 mg 1X ONCE IV Last administered on 11/10/16 21:16; Start 11/10/16 at 21:00; Stop 11/10/16 at 21:01; Status DC Ondansetron HCl 4 mg 4 mg PRN Q8HRS PRN IV NAUSEA/VOMITING; Start 11/10/16 at 23:00; Stop 11/11/16 at 22:59; Status DC Sodium Chloride (Iv Sodium Chloride 0.9% 1000ml Bag) 1,000 ml @ 125 mls/hr Q8H IV Last administered on 11/11/16 09:04; Start 11/10/16 at 23:00; Stop at 22:59; Status DC Acetaminophen (Tylenol) 650 mg PRN Q4HRS PRN PO FEVER; Start 11/10/16 at 23:00 ; Stop 11/11/16 at 22:59; Status DC Albuterol/ Ipratropium (Duoneb) 3 ml RTQID NEB Last administered on 11/12/16 07:06; Start 11/11/16 at 08:00; Stop 11/12/16 at 07:59; Status DC Methylprednisolone Sodium Succinate (Solu-Medrol 40mg Vial) 60 mg Q6HRS IV Last administered on 11/11/16 12:53; Start 11/11/16 at 00:00; Stop 11/12/16 at 15:10; Status DC Levofloxacin/ Dextrose 1 each 1 each PRN DAILY PRN MC SEE COMMENTS; Start 11/10 at 22:45; Stop 11/12/16 at 14:52; Status DC Levofloxacin/ Dextrose 100 ml @ 100 mls/hr ONCE ONCE IV Last administered on 11/10/16 23:37; Start 11/10/16 at 23:15; Stop 11/11/16 at 00:14; Status DC Levofloxacin/ Dextrose (LEVAQUIN 500mg PREMIX) 100 ml @ 100 mls/hr Q24H IV ; Start 11/11/16 at 21:00; Stop 11/12/16 at 15:00; Status DC Alprazolam (Xanax) 0.5 mg PRN Q8HRS PRN PO ANXIETY / AGITATION Last administered on 11/13/16 08:18; Start 11/11/16 at 00:30 Acetaminophen (Tylenol) 325 mg PRN Q6HRS PRN PO MILD PAIN / TEMP Last administered on 11/12/16 20:50; Start 11/11/16 at 10:00 Hydralazine HCl (Apresoline) 10 mg PRN Q4HRS PRN IVP ELEVATED BP, SEE COMMENTS ; Start 11/11/16 at 10:00 Ondansetron HCl (Zofran) 4 mg PRN Q8HRS PRN IV NAUSEA/VOMITING; Start 11/11/16 at 10:00 Albuterol Sulfate (Ventolin Neb Soln) 2.5 mg PRN Q4HRS PRN NEB SHORTNESS OF BREATH Last administered on 11/12/16 17:31; Start 11/11/16 at 10:00 Pantoprazole Sodium (Protonix) 40 mg DAILY PO Last administered on 11/14/16 09 :08; Start 11/11/16 at 12:00 Non-Formulary Medication 2 puff BID IH ; Start 11/11/16 at 21:00; Status UNV Budesonide (Pulmicort) 0.5 mg RTBID NEB Last administered on 11/14/16 07:27; Start 11/11/16 at 12:00 Nicotine (Nicoderm Cq 21mg) 1 patch PRN DAILY PRN TD SMOKING CESSATION; Start 11/11/16 at 14:45 Enoxaparin Sodium (Lovenox 40mg Syringe) 40 mg Q24H SQ ; Start 11/11/16 at 15:00 ; Stop 11/11/16 at 17:45; Status DC Enoxaparin Sodium (Lovenox 40mg Syringe) 40 mg BID SQ Last administered on 11/14 09:08; Start 11/11/16 at 21:00 Insulin Aspart (Novolog) 0-7 UNITS TIDWMEALHC SQ ; Start 11/12/16 at 08:00 Dextrose (Dextrose 50%-Water Syringe) 12.5 gm PRN Q15MIN PRN IV SEE COMMENTS; Start 11/11/16 at 21:45 Levofloxacin (Levaquin) 500 mg DAILY06 PO Last administered on 11/14/16 06:11 ; Start 11/12/16 at 15:30 Prednisone (Prednisone) 40 mg DAILY PO Last administered on 11/14/16 09:08; Start 11/12/16 at 17:00 Albuterol/ Ipratropium (Duoneb) 3 ml RTQID NEB Last administered on 11/14/16 15:15; Start 11/12/16 at 20:00 Active Scripts Active Protonix (Pantoprazole Sodium) 40 Mg Tablet.dr 1 Tab PO DAILY Pulmicort Flexhaler (Budesonide) 180 Mcg Aer.pow.ba 2 Puff IH BID Reported Prednisone 5 Mg Tablet 5 Mg PO Vitals/I & O Vital Sign - Last 24 Hours 11/13/16 11/13/16 11/13/16 11/13/16 19:59 20:00 20:56 23:51 Temp 97.6 97.7 97.6 97.7 Pulse 90 78 Resp 22 22 B/P 136/65 110/51 Pulse Ox 96 99 96 O2 Delivery BiPAP/CPAP Bi-pap BiPAP/CPAP Nasal Cannula O2 Flow Rate 4.0 11/14/16 11/14/16 11/14/16 11/14/16 00:05 01:46 03:41 03:59 Temp 97.5 97.5 Pulse 75 Resp 22 B/P 123/59 Pulse Ox 99 100 O2 Delivery BiPAP/CPAP BiPAP/CPAP BiPAP/CPAP BiPAP/CPAP 11/14/16 11/14/16 11/14/16 11/14/16 05:30 07:00 07:30 07:35 Temp 98.0 98.0 Pulse 84 Resp 24 B/P 132/80 Pulse Ox 96 100 100 O2 Delivery BiPAP/CPAP BiPAP/CPAP BiPAP/CPAP BiPAP/CPAP 11/14/16 11/14/16 11/14/16 11/14/16 08:00 11:00 11:28 15:16 Temp 98.2 98.2 Pulse 69 Resp 22 B/P 150/62 Pulse Ox 97 100 O2 Delivery Bi-pap High Flow Nasal Cannula Nasal Cannula BiPAP/CPAP O2 Flow Rate 4.0 5.0 4.0 Intake and Output 11/13/16 11/13/16 11/14/16 15:00 23:00 07:00 Intake Total 720 ml 1440 ml 500 ml Output Total 950 ml 1400 ml 1075 ml Balance -230 ml 40 ml -575 ml ANA COOL MD Nov 14, 2016 15:58
--- NOTE | 2016-11-14 17:26 | PDOC ---
PULMONARY PROGRESS NOTES Subjective pt still soa on bipap unable to tolerated being off bipap Vitals Vital Signs Date Time Temp Pulse Resp B/P Pulse Ox O2 Delivery O2 Flow Rate FiO2 11/14/16 15:16 100 BiPAP/CPAP 11/14/16 11:28 4.0 11/14/16 11:00 98.2 69 22 150/62 98.2 General: Alert, No acute distress Lungs: Clear, Wheezing Cardiovascular: S1, S2 Abdomen: Soft, Non-tender Neuro Exam: Alert Extremities: No Edema Skin: Warm Labs Laboratory Tests Test 11/12/16 20:55 11/13/16 03:50 11/13/16 07:14 11/13/16 10:54 Glucose (Fingerstick) 145mg/dL (70-99) 139mg/dL (70-99) 148mg/dL (70-99) White Blood Count 14.6x10^3/uL (4.0-11.0) Red Blood Count 4.59x10^6/uL (4.30-5.70) Hemoglobin 9.8g/dL (13.0-17.5) Hematocrit 33.3% (39.0-53.0) Mean Corpuscular Volume 73fL (79-100) Mean Corpuscular Hemoglobin 21pg (25-35) Mean Corpuscular Hemoglobin Concent 29g/dL (31-37) Red Cell Distribution Width 22.2% (11.5-14.5) Platelet Count 290x10^3/uL (140-400) Neutrophils (%) (Auto) 84% (31-73) Lymphocytes (%) (Auto) 12% (24-48) Monocytes (%) (Auto) 4% (0-9) Eosinophils (%) (Auto) 0% (0-3) Basophils (%) (Auto) 0% (0-3) Neutrophils # (Auto) 12.2x10^3uL (1.8-7.7) Lymphocytes # (Auto) 1.7x10^3/uL (1.0-4.8) Monocytes # (Auto) 0.6x10^3/uL (0.0-1.1) Eosinophils # (Auto) 0.0x10^3/uL (0.0-0.7) Basophils # (Auto) 0.0x10^3/uL (0.0-0.2) Sodium Level 139mmol/L (136-145) Potassium Level 4.9mmol/L (3.5-5.1) Chloride Level 102mmol/L (98-107) Carbon Dioxide Level 31mmol/L (21-32) Anion Gap 6 (6-14) Blood Urea Nitrogen 18mg/dL (8-26) Creatinine 0.8mg/dL (0.7-1.3) Estimated GFR (Cockcroft-Gault) 98.9 Glucose Level 142mg/dL (70-99) Calcium Level 8.9mg/dL (8.5-10.1) Test 11/13/16 16:42 11/13/16 20:37 11/14/16 04:40 11/14/16 07:13 Glucose (Fingerstick) 140mg/dL (70-99) 154mg/dL (70-99) 81mg/dL (70-99) White Blood Count 12.2x10^3/uL (4.0-11.0) Red Blood Count 4.75x10^6/uL (4.30-5.70) Hemoglobin 10.2g/dL (13.0-17.5) Hematocrit 33.9% (39.0-53.0) Mean Corpuscular Volume 71fL (79-100) Mean Corpuscular Hemoglobin 21pg (25-35) Mean Corpuscular Hemoglobin Concent 30g/dL (31-37) Red Cell Distribution Width 21.8% (11.5-14.5) Platelet Count 298x10^3/uL (140-400) Neutrophils (%) (Auto) 68% (31-73) Lymphocytes (%) (Auto) 26% (24-48) Monocytes (%) (Auto) 6% (0-9) Eosinophils (%) (Auto) 0% (0-3) Basophils (%) (Auto) 0% (0-3) Neutrophils # (Auto) 8.3x10^3uL (1.8-7.7) Lymphocytes # (Auto) 3.2x10^3/uL (1.0-4.8) Monocytes # (Auto) 0.7x10^3/uL (0.0-1.1) Eosinophils # (Auto) 0.0x10^3/uL (0.0-0.7) Basophils # (Auto) 0.0x10^3/uL (0.0-0.2) Reticulocyte Count (auto) 1.0% (0.5-2.5) Sodium Level 140mmol/L (136-145) Potassium Level 4.1mmol/L (3.5-5.1) Chloride Level 100mmol/L (98-107) Carbon Dioxide Level 31mmol/L (21-32) Anion Gap 9 (6-14) Blood Urea Nitrogen 16mg/dL (8-26) Creatinine 0.8mg/dL (0.7-1.3) Estimated GFR (Cockcroft-Gault) 98.9 Glucose Level 103mg/dL (70-99) Calcium Level 9.2mg/dL (8.5-10.1) Iron Level 34ug/dL (65-175) Total Iron Binding Capacity 473ug/dL (250-450) Iron Saturation 7% (15-34) Ferritin 14ng/mL (26-388) Test 11/14/16 11:16 11/14/16 17:23 Glucose (Fingerstick) 102mg/dL (70-99) 198mg/dL (70-99) Laboratory Tests Test 11/13/16 20:37 11/14/16 04:40 11/14/16 07:13 11/14/16 11:16 Glucose (Fingerstick) 154mg/dL (70-99) 81mg/dL (70-99) 102mg/dL (70-99) White Blood Count 12.2x10^3/uL (4.0-11.0) Red Blood Count 4.75x10^6/uL (4.30-5.70) Hemoglobin 10.2g/dL (13.0-17.5) Hematocrit 33.9% (39.0-53.0) Mean Corpuscular Volume 71fL (79-100) Mean Corpuscular Hemoglobin 21pg (25-35) Mean Corpuscular Hemoglobin Concent 30g/dL (31-37) Red Cell Distribution Width 21.8% (11.5-14.5) Platelet Count 298x10^3/uL (140-400) Neutrophils (%) (Auto) 68% (31-73) Lymphocytes (%) (Auto) 26% (24-48) Monocytes (%) (Auto) 6% (0-9) Eosinophils (%) (Auto) 0% (0-3) Basophils (%) (Auto) 0% (0-3) Neutrophils # (Auto) 8.3x10^3uL (1.8-7.7) Lymphocytes # (Auto) 3.2x10^3/uL (1.0-4.8) Monocytes # (Auto) 0.7x10^3/uL (0.0-1.1) Eosinophils # (Auto) 0.0x10^3/uL (0.0-0.7) Basophils # (Auto) 0.0x10^3/uL (0.0-0.2) Reticulocyte Count (auto) 1.0% (0.5-2.5) Sodium Level 140mmol/L (136-145) Potassium Level 4.1mmol/L (3.5-5.1) Chloride Level 100mmol/L (98-107) Carbon Dioxide Level 31mmol/L (21-32) Anion Gap 9 (6-14) Blood Urea Nitrogen 16mg/dL (8-26) Creatinine 0.8mg/dL (0.7-1.3) Estimated GFR (Cockcroft-Gault) 98.9 Glucose Level 103mg/dL (70-99) Calcium Level 9.2mg/dL (8.5-10.1) Iron Level 34ug/dL (65-175) Total Iron Binding Capacity 473ug/dL (250-450) Iron Saturation 7% (15-34) Ferritin 14ng/mL (26-388) Test 11/14/16 17:23 Glucose (Fingerstick) 198mg/dL (70-99) Medications Active Scripts Medications Dose Route/Sig Days Date Category Prednisone 5 Mg Tablet 5 Mg PO 08/14/16 Reported Protonix (Pantoprazole Sodium) 40 Mg Tablet.dr 1 Tab PO DAILY 08/14/16 Rx Pulmicort Flexhaler (Budesonide) 180 Mcg Aer.pow.ba 2 Puff IH BID 08/14/16 Rx Impression . 1. Acute respiratory failure secondary to acute exacerbation of chronic obstructive pulmonary disease. 2. Acute exacerbation of chronic obstructive pulmonary disease. 3. Suspect secondary pulmonary hypertension. 4. Obstructive sleep apnea. 5. Tobacco dependent. 6. Morbid obesity. 7. Diabetes. Plan . still soa will continue the same, NOW OFF BIPAP SITTING UP NEED PT DISPOSITION IS A CHALLENGE PLEASE SCREEN FOR [facility] OR [facility] 1. Recommend continue BiPAP and oxygen supplementation to maintain sats above 90%. 2. Continue Levaquin and steroids. 3. Nebulized treatments. 4. DVT prophylaxis. AMBER AVERY MD Nov 14, 2016 17:26
[2016-11-14 19:56] VITALS: BP 146/75
[2016-11-14 23:42] VITALS: BP 114/52
[2016-11-15 03:59] VITALS: BP 129/64
[2016-11-15] MEDS: ALBUTEROL SULFATE 2.5 MG/3 ML NEBU. NEB PRN (04:18)
[2016-11-15 05:20] LABS: BASO % 0 % (0-3); EOS % 0 % (0-3); HEMATOCRIT 32.6 % (39.0-53.0); HEMOGLOBIN 9.7 g/dL (13.0-17.5); LYMPH # 3.3 x10^3/uL (1.0-4.8); LYMPH % 28 % (24-48); MEAN CORPUSCULAR HEMOGLOBIN 21 pg (25-35); MEAN CORPUSCULAR HGB CONC 30 g/dL (31-37); MEAN CORPUSCULAR VOLUME 71 fL (79-100); MONO % 5 % (0-9); NEUT % 67 % (31-73); PLATELET COUNT 276 x10^3/uL (140-400); RED BLOOD COUNT 4.57 x10^6/uL (4.30-5.70); RED CELL DISTRIBUTION WIDTH 22.5 % (11.5-14.5)
[2016-11-15 05:36] LABS: CREATININE 0.8 mg/dL (0.7-1.3); GFR 98.9; POTASSIUM 4.1 mmol/L (3.5-5.1)
[2016-11-15] MEDS: LEVOFLOXACIN 500 MG TABLET PO SCH (06:09)
[2016-11-15 07:00] VITALS: BP 140/86
[2016-11-15] MEDS: BUDESONIDE 0.5 MG/2 ML NEBU. NEB SCH ×2 (07:10→19:30)
[2016-11-15] MEDS: IPRATRPIUM/ALBUTEROL 0.5/2.5MG 3 ML NEBU. NEB SCH ×4 (07:10→19:30)
[2016-11-15] MEDS: INSULIN ASPART 300 UNITS/3 ML INSULN.PEN SQ SCH ×4 (07:50→21:00)
[2016-11-15] MEDS: PANTOPRAZOLE 40 MG TABLET.DR. PO SCH (07:51)
[2016-11-15] MEDS: ENOXAPARIN 40 MG/0.4 ML SYRINGE. SQ SCH ×2 (07:51→21:21)
[2016-11-15] MEDS: predniSONE 20 MG TABLET PO SCH (07:51)
[2016-11-15 11:00] VITALS: BP 124/70
--- NOTE | 2016-11-15 12:06 | PDOC ---
PROGRESS NOTES Chief Complaint Chief Complaint [id number] respiratory failure ASSESSMENT AND PLAN: 1. ?COPD exacerbation: steroids, nebs O2, off BIPAP, on Nasal canula, 2. GOLDEN: BiPAP prn 3. Hypoventilation syndrome with massive obesity 4. Anemia: microcytic, suspicious for iron deficiency. anemia labs ordered 5. HTN: by report. BPs WNL w/o meds here 6. Prophylaxis: Lovenox 7. Nicotine dependence: on nicotine patch 8. [id number] respiratory failure. History of Present Illness History of Present Illness on Nasal canula Vitals Vitals Vital Signs Date Time Temp Pulse Resp B/P Pulse Ox O2 Delivery O2 Flow Rate FiO2 11/15/16 11:01 100 BiPAP/CPAP 11/15/16 11:00 98.0 94 24 124/70 5.0 98.0 Physical Exam General: Alert, Oriented X3 Heart: Regular rate, Normal S1, Normal S2 Lungs: Clear, Wheezing Abdomen: Normal bowel sounds, Other (massively obese) Extremities: No clubbing, No cyanosis Skin: No rashes Labs LABS Laboratory Tests Test 11/14/16 17:23 11/14/16 20:10 11/15/16 03:18 11/15/16 07:39 Glucose (Fingerstick) 198mg/dL (70-99) 159mg/dL (70-99) 110mg/dL (70-99) White Blood Count 12.0x10^3/uL (4.0-11.0) Red Blood Count 4.57x10^6/uL (4.30-5.70) Hemoglobin 9.7g/dL (13.0-17.5) Hematocrit 32.6% (39.0-53.0) Mean Corpuscular Volume 71fL (79-100) Mean Corpuscular Hemoglobin 21pg (25-35) Mean Corpuscular Hemoglobin Concent 30g/dL (31-37) Red Cell Distribution Width 22.5% (11.5-14.5) Platelet Count 276x10^3/uL (140-400) Neutrophils (%) (Auto) 67% (31-73) Lymphocytes (%) (Auto) 28% (24-48) Monocytes (%) (Auto) 5% (0-9) Eosinophils (%) (Auto) 0% (0-3) Basophils (%) (Auto) 0% (0-3) Neutrophils # (Auto) 8.1x10^3uL (1.8-7.7) Lymphocytes # (Auto) 3.3x10^3/uL (1.0-4.8) Monocytes # (Auto) 0.6x10^3/uL (0.0-1.1) Eosinophils # (Auto) 0.0x10^3/uL (0.0-0.7) Basophils # (Auto) 0.0x10^3/uL (0.0-0.2) Sodium Level 140mmol/L (136-145) Potassium Level 4.1mmol/L (3.5-5.1) Chloride Level 101mmol/L (98-107) Carbon Dioxide Level 33mmol/L (21-32) Anion Gap 6 (6-14) Blood Urea Nitrogen 16mg/dL (8-26) Creatinine 0.8mg/dL (0.7-1.3) Estimated GFR (Cockcroft-Gault) 98.9 Glucose Level 99mg/dL (70-99) Calcium Level 9.0mg/dL (8.5-10.1) Test 11/15/16 11:40 Glucose (Fingerstick) 143mg/dL (70-99) Assessment and Plan Assessmemt and Plan Problems Medical Problems: (1) Acute and chronic respiratory failure Status: Acute (2) COPD exacerbation Status: Acute (3) Elevated lactic acid level Status: Acute (4) Microcytic anemia Status: Acute Problems: Comment Review of Relevant I have reviewed the following items iron (where applicable) has been applied. Labs Laboratory Tests Test 11/13/16 16:42 11/13/16 20:37 11/14/16 04:40 11/14/16 07:13 Glucose (Fingerstick) 140mg/dL (70-99) 154mg/dL (70-99) 81mg/dL (70-99) White Blood Count 12.2x10^3/uL (4.0-11.0) Red Blood Count 4.75x10^6/uL (4.30-5.70) Hemoglobin 10.2g/dL (13.0-17.5) Hematocrit 33.9% (39.0-53.0) Mean Corpuscular Volume 71fL (79-100) Mean Corpuscular Hemoglobin 21pg (25-35) Mean Corpuscular Hemoglobin Concent 30g/dL (31-37) Red Cell Distribution Width 21.8% (11.5-14.5) Platelet Count 298x10^3/uL (140-400) Neutrophils (%) (Auto) 68% (31-73) Lymphocytes (%) (Auto) 26% (24-48) Monocytes (%) (Auto) 6% (0-9) Eosinophils (%) (Auto) 0% (0-3) Basophils (%) (Auto) 0% (0-3) Neutrophils # (Auto) 8.3x10^3uL (1.8-7.7) Lymphocytes # (Auto) 3.2x10^3/uL (1.0-4.8) Monocytes # (Auto) 0.7x10^3/uL (0.0-1.1) Eosinophils # (Auto) 0.0x10^3/uL (0.0-0.7) Basophils # (Auto) 0.0x10^3/uL (0.0-0.2) Reticulocyte Count (auto) 1.0% (0.5-2.5) Sodium Level 140mmol/L (136-145) Potassium Level 4.1mmol/L (3.5-5.1) Chloride Level 100mmol/L (98-107) Carbon Dioxide Level 31mmol/L (21-32) Anion Gap 9 (6-14) Blood Urea Nitrogen 16mg/dL (8-26) Creatinine 0.8mg/dL (0.7-1.3) Estimated GFR (Cockcroft-Gault) 98.9 Glucose Level 103mg/dL (70-99) Calcium Level 9.2mg/dL (8.5-10.1) Iron Level 34ug/dL (65-175) Total Iron Binding Capacity 473ug/dL (250-450) Iron Saturation 7% (15-34) Ferritin 14ng/mL (26-388) Test 11/14/16 11:16 11/14/16 17:23 11/14/16 20:10 11/15/16 03:18 Glucose (Fingerstick) 102mg/dL (70-99) 198mg/dL (70-99) 159mg/dL (70-99) White Blood Count 12.0x10^3/uL (4.0-11.0) Red Blood Count 4.57x10^6/uL (4.30-5.70) Hemoglobin 9.7g/dL (13.0-17.5) Hematocrit 32.6% (39.0-53.0) Mean Corpuscular Volume 71fL (79-100) Mean Corpuscular Hemoglobin 21pg (25-35) Mean Corpuscular Hemoglobin Concent 30g/dL (31-37) Red Cell Distribution Width 22.5% (11.5-14.5) Platelet Count 276x10^3/uL (140-400) Neutrophils (%) (Auto) 67% (31-73) Lymphocytes (%) (Auto) 28% (24-48) Monocytes (%) (Auto) 5% (0-9) Eosinophils (%) (Auto) 0% (0-3) Basophils (%) (Auto) 0% (0-3) Neutrophils # (Auto) 8.1x10^3uL (1.8-7.7) Lymphocytes # (Auto) 3.3x10^3/uL (1.0-4.8) Monocytes # (Auto) 0.6x10^3/uL (0.0-1.1) Eosinophils # (Auto) 0.0x10^3/uL (0.0-0.7) Basophils # (Auto) 0.0x10^3/uL (0.0-0.2) Sodium Level 140mmol/L (136-145) Potassium Level 4.1mmol/L (3.5-5.1) Chloride Level 101mmol/L (98-107) Carbon Dioxide Level 33mmol/L (21-32) Anion Gap 6 (6-14) Blood Urea Nitrogen 16mg/dL (8-26) Creatinine 0.8mg/dL (0.7-1.3) Estimated GFR (Cockcroft-Gault) 98.9 Glucose Level 99mg/dL (70-99) Calcium Level 9.0mg/dL (8.5-10.1) Test 11/15/16 07:39 11/15/16 11:40 Glucose (Fingerstick) 110mg/dL (70-99) 143mg/dL (70-99) Laboratory Tests Test 11/14/16 17:23 11/14/16 20:10 11/15/16 03:18 11/15/16 07:39 Glucose (Fingerstick) 198mg/dL (70-99) 159mg/dL (70-99) 110mg/dL (70-99) White Blood Count 12.0x10^3/uL (4.0-11.0) Red Blood Count 4.57x10^6/uL (4.30-5.70) Hemoglobin 9.7g/dL (13.0-17.5) Hematocrit 32.6% (39.0-53.0) Mean Corpuscular Volume 71fL (79-100) Mean Corpuscular Hemoglobin 21pg (25-35) Mean Corpuscular Hemoglobin Concent 30g/dL (31-37) Red Cell Distribution Width 22.5% (11.5-14.5) Platelet Count 276x10^3/uL (140-400) Neutrophils (%) (Auto) 67% (31-73) Lymphocytes (%) (Auto) 28% (24-48) Monocytes (%) (Auto) 5% (0-9) Eosinophils (%) (Auto) 0% (0-3) Basophils (%) (Auto) 0% (0-3) Neutrophils # (Auto) 8.1x10^3uL (1.8-7.7) Lymphocytes # (Auto) 3.3x10^3/uL (1.0-4.8) Monocytes # (Auto) 0.6x10^3/uL (0.0-1.1) Eosinophils # (Auto) 0.0x10^3/uL (0.0-0.7) Basophils # (Auto) 0.0x10^3/uL (0.0-0.2) Sodium Level 140mmol/L (136-145) Potassium Level 4.1mmol/L (3.5-5.1) Chloride Level 101mmol/L (98-107) Carbon Dioxide Level 33mmol/L (21-32) Anion Gap 6 (6-14) Blood Urea Nitrogen 16mg/dL (8-26) Creatinine 0.8mg/dL (0.7-1.3) Estimated GFR (Cockcroft-Gault) 98.9 Glucose Level 99mg/dL (70-99) Calcium Level 9.0mg/dL (8.5-10.1) Test 11/15/16 11:40 Glucose (Fingerstick) 143mg/dL (70-99) Microbiology 11/10/16 Blood Culture - Preliminary, Resulted NO GROWTH AFTER 4 DAYS Medications Current Medications Albuterol Sulfate 5 mg 5 mg 1X ONCE NEB Last administered on 11/10/16 20:24; Start 11/10/16 at 20:15; Stop 11/10/16 at 20:17; Status DC Sodium Chloride (Iv Sodium Chloride 0.9% 1000ml Bag) 1,000 ml @ 100 mls/hr Q10H IV Last administered on 11/10/16 21:17; Start 11/10/16 at 20:48; Stop at 06:47; Status DC Methylprednisolone Sodium Succinate (Solu-Medrol 125mg Vial) 125 mg 1X ONCE IV Last administered on 11/10/16 21:16; Start 11/10/16 at 21:00; Stop 11/10/16 at 21:01; Status DC Ondansetron HCl 4 mg 4 mg PRN Q8HRS PRN IV NAUSEA/VOMITING; Start 11/10/16 at 23:00; Stop 11/11/16 at 22:59; Status DC Sodium Chloride (Iv Sodium Chloride 0.9% 1000ml Bag) 1,000 ml @ 125 mls/hr Q8H IV Last administered on 11/11/16 09:04; Start 11/10/16 at 23:00; Stop at 22:59; Status DC Acetaminophen (Tylenol) 650 mg PRN Q4HRS PRN PO FEVER; Start 11/10/16 at 23:00 ; Stop 11/11/16 at 22:59; Status DC Albuterol/ Ipratropium (Duoneb) 3 ml RTQID NEB Last administered on 11/12/16 07:06; Start 11/11/16 at 08:00; Stop 11/12/16 at 07:59; Status DC Methylprednisolone Sodium Succinate (Solu-Medrol 40mg Vial) 60 mg Q6HRS IV Last administered on 11/11/16 12:53; Start 11/11/16 at 00:00; Stop 11/12/16 at 15:10; Status DC Levofloxacin/ Dextrose 1 each 1 each PRN DAILY PRN MC SEE COMMENTS; Start 11/10 at 22:45; Stop 11/12/16 at 14:52; Status DC Levofloxacin/ Dextrose 100 ml @ 100 mls/hr ONCE ONCE IV Last administered on 11/10/16 23:37; Start 11/10/16 at 23:15; Stop 11/11/16 at 00:14; Status DC Levofloxacin/ Dextrose (LEVAQUIN 500mg PREMIX) 100 ml @ 100 mls/hr Q24H IV ; Start 11/11/16 at 21:00; Stop 11/12/16 at 15:00; Status DC Alprazolam (Xanax) 0.5 mg PRN Q8HRS PRN PO ANXIETY / AGITATION Last administered on 11/13/16 08:18; Start 11/11/16 at 00:30 Acetaminophen (Tylenol) 325 mg PRN Q6HRS PRN PO MILD PAIN / TEMP Last administered on 11/12/16 20:50; Start 11/11/16 at 10:00 Hydralazine HCl (Apresoline) 10 mg PRN Q4HRS PRN IVP ELEVATED BP, SEE COMMENTS ; Start 11/11/16 at 10:00 Ondansetron HCl (Zofran) 4 mg PRN Q8HRS PRN IV NAUSEA/VOMITING; Start 11/11/16 at 10:00 Albuterol Sulfate (Ventolin Neb Soln) 2.5 mg PRN Q4HRS PRN NEB SHORTNESS OF BREATH Last administered on 11/15/16 04:18; Start 11/11/16 at 10:00 Pantoprazole Sodium (Protonix) 40 mg DAILY PO Last administered on 11/15/16 07 :51; Start 11/11/16 at 12:00 Non-Formulary Medication 2 puff BID IH ; Start 11/11/16 at 21:00; Status UNV Budesonide (Pulmicort) 0.5 mg RTBID NEB Last administered on 11/15/16 07:10; Start 11/11/16 at 12:00 Nicotine (Nicoderm Cq 21mg) 1 patch PRN DAILY PRN TD SMOKING CESSATION; Start 11/11/16 at 14:45 Enoxaparin Sodium (Lovenox 40mg Syringe) 40 mg Q24H SQ ; Start 11/11/16 at 15:00 ; Stop 11/11/16 at 17:45; Status DC Enoxaparin Sodium (Lovenox 40mg Syringe) 40 mg BID SQ Last administered on 11/15 07:51; Start 11/11/16 at 21:00 Insulin Aspart (Novolog) 0-7 UNITS TIDWMEALHC SQ ; Start 11/12/16 at 08:00 Dextrose (Dextrose 50%-Water Syringe) 12.5 gm PRN Q15MIN PRN IV SEE COMMENTS; Start 11/11/16 at 21:45 Levofloxacin (Levaquin) 500 mg DAILY06 PO Last administered on 11/15/16 06:09 ; Start 11/12/16 at 15:30 Prednisone (Prednisone) 40 mg DAILY PO Last administered on 11/15/16 07:51; Start 11/12/16 at 17:00 Albuterol/ Ipratropium (Duoneb) 3 ml RTQID NEB Last administered on 11/15/16 11:00; Start 11/12/16 at 20:00 Active Scripts Active Protonix (Pantoprazole Sodium) 40 Mg Tablet.dr 1 Tab PO DAILY Pulmicort Flexhaler (Budesonide) 180 Mcg Aer.pow.ba 2 Puff IH BID Reported Prednisone 5 Mg Tablet 5 Mg PO Vitals/I & O Vital Sign - Last 24 Hours 11/14/16 11/14/16 11/14/16 11/14/16 15:00 15:16 19:56 20:00 Temp 98.4 97.9 98.4 97.9 Pulse 80 77 Resp 24 18 B/P 136/78 146/75 Pulse Ox 97 100 97 O2 Delivery High Flow Nasal Cannula BiPAP/CPAP BiPAP/CPAP Bi-pap O2 Flow Rate 5.0 4.0 11/14/16 11/14/16 11/14/16 11/14/16 20:35 20:36 22:38 23:42 Temp 98.6 98.6 Pulse 71 Resp 21 B/P 114/52 Pulse Ox 100 100 100 O2 Delivery BiPAP/CPAP BiPAP/CPAP BiPAP/CPAP BiPAP/CPAP 11/15/16 11/15/16 11/15/16 11/15/16 01:05 02:51 03:59 04:21 Temp 97.3 97.3 Pulse 83 Resp 22 B/P 129/64 Pulse Ox 99 100 100 98 O2 Delivery BiPAP/CPAP BiPAP/CPAP BiPAP/CPAP BiPAP/CPAP 11/15/16 11/15/16 11/15/16 11/15/16 07:00 07:11 07:57 11:00 Temp 98.2 98.0 98.2 98.0 Pulse 96 94 Resp 20 24 B/P 140/86 124/70 Pulse Ox 98 100 96 O2 Delivery High Flow Nasal Cannula BiPAP/CPAP Bi-pap High Flow Nasal Cannula O2 Flow Rate 5.0 4.0 5.0 11/15/16 11:01 Pulse Ox 100 O2 Delivery BiPAP/CPAP Intake and Output 11/14/16 11/14/16 11/15/16 15:00 23:00 07:00 Intake Total 600 ml 1220 ml Output Total 400 ml 1425 ml 550 ml Balance 200 ml -205 ml -550 ml ANA COOL MD Nov 15, 2016 12:06
--- NOTE | 2016-11-15 14:34 | PDOC ---
PULMONARY PROGRESS NOTES Subjective FEELS BETTER SITTING UP WALK IN ROOM Vitals Vital Signs Date Time Temp Pulse Resp B/P Pulse Ox O2 Delivery O2 Flow Rate FiO2 11/15/16 11:01 100 BiPAP/CPAP 11/15/16 11:00 98.0 94 24 124/70 5.0 98.0 General: Alert, No acute distress Lungs: Clear, Wheezing Cardiovascular: S1, S2 Abdomen: Soft, Non-tender Neuro Exam: Alert Extremities: No Edema Skin: Warm Labs Laboratory Tests Test 11/13/16 16:42 11/13/16 20:37 11/14/16 04:40 11/14/16 07:13 Glucose (Fingerstick) 140mg/dL (70-99) 154mg/dL (70-99) 81mg/dL (70-99) White Blood Count 12.2x10^3/uL (4.0-11.0) Red Blood Count 4.75x10^6/uL (4.30-5.70) Hemoglobin 10.2g/dL (13.0-17.5) Hematocrit 33.9% (39.0-53.0) Mean Corpuscular Volume 71fL (79-100) Mean Corpuscular Hemoglobin 21pg (25-35) Mean Corpuscular Hemoglobin Concent 30g/dL (31-37) Red Cell Distribution Width 21.8% (11.5-14.5) Platelet Count 298x10^3/uL (140-400) Neutrophils (%) (Auto) 68% (31-73) Lymphocytes (%) (Auto) 26% (24-48) Monocytes (%) (Auto) 6% (0-9) Eosinophils (%) (Auto) 0% (0-3) Basophils (%) (Auto) 0% (0-3) Neutrophils # (Auto) 8.3x10^3uL (1.8-7.7) Lymphocytes # (Auto) 3.2x10^3/uL (1.0-4.8) Monocytes # (Auto) 0.7x10^3/uL (0.0-1.1) Eosinophils # (Auto) 0.0x10^3/uL (0.0-0.7) Basophils # (Auto) 0.0x10^3/uL (0.0-0.2) Reticulocyte Count (auto) 1.0% (0.5-2.5) Sodium Level 140mmol/L (136-145) Potassium Level 4.1mmol/L (3.5-5.1) Chloride Level 100mmol/L (98-107) Carbon Dioxide Level 31mmol/L (21-32) Anion Gap 9 (6-14) Blood Urea Nitrogen 16mg/dL (8-26) Creatinine 0.8mg/dL (0.7-1.3) Estimated GFR (Cockcroft-Gault) 98.9 Glucose Level 103mg/dL (70-99) Calcium Level 9.2mg/dL (8.5-10.1) Iron Level 34ug/dL (65-175) Total Iron Binding Capacity 473ug/dL (250-450) Iron Saturation 7% (15-34) Ferritin 14ng/mL (26-388) Test 11/14/16 11:16 11/14/16 17:23 11/14/16 20:10 11/15/16 03:18 Glucose (Fingerstick) 102mg/dL (70-99) 198mg/dL (70-99) 159mg/dL (70-99) White Blood Count 12.0x10^3/uL (4.0-11.0) Red Blood Count 4.57x10^6/uL (4.30-5.70) Hemoglobin 9.7g/dL (13.0-17.5) Hematocrit 32.6% (39.0-53.0) Mean Corpuscular Volume 71fL (79-100) Mean Corpuscular Hemoglobin 21pg (25-35) Mean Corpuscular Hemoglobin Concent 30g/dL (31-37) Red Cell Distribution Width 22.5% (11.5-14.5) Platelet Count 276x10^3/uL (140-400) Neutrophils (%) (Auto) 67% (31-73) Lymphocytes (%) (Auto) 28% (24-48) Monocytes (%) (Auto) 5% (0-9) Eosinophils (%) (Auto) 0% (0-3) Basophils (%) (Auto) 0% (0-3) Neutrophils # (Auto) 8.1x10^3uL (1.8-7.7) Lymphocytes # (Auto) 3.3x10^3/uL (1.0-4.8) Monocytes # (Auto) 0.6x10^3/uL (0.0-1.1) Eosinophils # (Auto) 0.0x10^3/uL (0.0-0.7) Basophils # (Auto) 0.0x10^3/uL (0.0-0.2) Sodium Level 140mmol/L (136-145) Potassium Level 4.1mmol/L (3.5-5.1) Chloride Level 101mmol/L (98-107) Carbon Dioxide Level 33mmol/L (21-32) Anion Gap 6 (6-14) Blood Urea Nitrogen 16mg/dL (8-26) Creatinine 0.8mg/dL (0.7-1.3) Estimated GFR (Cockcroft-Gault) 98.9 Glucose Level 99mg/dL (70-99) Calcium Level 9.0mg/dL (8.5-10.1) Test 11/15/16 07:39 11/15/16 11:40 Glucose (Fingerstick) 110mg/dL (70-99) 143mg/dL (70-99) Laboratory Tests Test 11/14/16 17:23 11/14/16 20:10 11/15/16 03:18 11/15/16 07:39 Glucose (Fingerstick) 198mg/dL (70-99) 159mg/dL (70-99) 110mg/dL (70-99) White Blood Count 12.0x10^3/uL (4.0-11.0) Red Blood Count 4.57x10^6/uL (4.30-5.70) Hemoglobin 9.7g/dL (13.0-17.5) Hematocrit 32.6% (39.0-53.0) Mean Corpuscular Volume 71fL (79-100) Mean Corpuscular Hemoglobin 21pg (25-35) Mean Corpuscular Hemoglobin Concent 30g/dL (31-37) Red Cell Distribution Width 22.5% (11.5-14.5) Platelet Count 276x10^3/uL (140-400) Neutrophils (%) (Auto) 67% (31-73) Lymphocytes (%) (Auto) 28% (24-48) Monocytes (%) (Auto) 5% (0-9) Eosinophils (%) (Auto) 0% (0-3) Basophils (%) (Auto) 0% (0-3) Neutrophils # (Auto) 8.1x10^3uL (1.8-7.7) Lymphocytes # (Auto) 3.3x10^3/uL (1.0-4.8) Monocytes # (Auto) 0.6x10^3/uL (0.0-1.1) Eosinophils # (Auto) 0.0x10^3/uL (0.0-0.7) Basophils # (Auto) 0.0x10^3/uL (0.0-0.2) Sodium Level 140mmol/L (136-145) Potassium Level 4.1mmol/L (3.5-5.1) Chloride Level 101mmol/L (98-107) Carbon Dioxide Level 33mmol/L (21-32) Anion Gap 6 (6-14) Blood Urea Nitrogen 16mg/dL (8-26) Creatinine 0.8mg/dL (0.7-1.3) Estimated GFR (Cockcroft-Gault) 98.9 Glucose Level 99mg/dL (70-99) Calcium Level 9.0mg/dL (8.5-10.1) Test 11/15/16 11:40 Glucose (Fingerstick) 143mg/dL (70-99) Medications Active Scripts Medications Dose Route/Sig Days Date Category Prednisone 5 Mg Tablet 5 Mg PO 08/14/16 Reported Protonix (Pantoprazole Sodium) 40 Mg Tablet. 1 Tab PO DAILY 08/14/16 Rx Pulmicort Flexhaler (Budesonide) 180 Mcg Aer.pow.ba 2 Puff IH BID 08/14/16 Rx Impression . 1. Acute respiratory failure secondary to acute exacerbation of chronic obstructive pulmonary disease. 2. Acute exacerbation of chronic obstructive pulmonary disease. 3. Suspect secondary pulmonary hypertension. 4. Obstructive sleep apnea. 5. Tobacco dependent. 6. Morbid obesity. 7. Diabetes. Plan . SPOKE WITH DR Sears, DISPOSITION WILL DEPEND ON PT RECOMMENDATION 1. Recommend continue BiPAP and oxygen supplementation to maintain sats above 90%. 2. Continue Levaquin and steroids. 3. Nebulized treatments. 4. DVT prophylaxis. AMBER AVERY MD Nov 15, 2016 14:34
[2016-11-15 15:00] VITALS: BP 112/78
[2016-11-15 19:00] VITALS: BP 135/58
[2016-11-15 22:49] VITALS: BP 144/77
[2016-11-16 02:55] VITALS: BP 149/68
[2016-11-16] MEDS: LEVOFLOXACIN 500 MG TABLET PO SCH (06:07)
[2016-11-16 07:00] VITALS: BP 125/66
[2016-11-16 07:10] LABS: BASO # 0.1 x10^3/uL (0.0-0.2); BASO % 1 % (0-3); EOS % 1 % (0-3); HEMATOCRIT 33.3 % (39.0-53.0); HEMOGLOBIN 9.8 g/dL (13.0-17.5); LYMPH # 4.3 x10^3/uL (1.0-4.8); LYMPH % 31 % (24-48); MEAN CORPUSCULAR HEMOGLOBIN 21 pg (25-35); MEAN CORPUSCULAR HGB CONC 29 g/dL (31-37); MEAN CORPUSCULAR VOLUME 72 fL (79-100); MONO % 4 % (0-9); NEUT % 63 % (31-73); PLATELET COUNT 261 x10^3/uL (140-400); RED BLOOD COUNT 4.63 x10^6/uL (4.30-5.70); RED CELL DISTRIBUTION WIDTH 22.4 % (11.5-14.5); WHITE BLOOD COUNT 14.1 x10^3/uL (4.0-11.0)
[2016-11-16] MEDS: BUDESONIDE 0.5 MG/2 ML NEBU. NEB SCH ×2 (07:18→19:53)
[2016-11-16] MEDS: IPRATRPIUM/ALBUTEROL 0.5/2.5MG 3 ML NEBU. NEB SCH ×4 (07:18→19:53)
[2016-11-16 07:31] LABS: CALCIUM 8.5 mg/dL (8.5-10.1); CREATININE 0.7 mg/dL (0.7-1.3); GFR 115.4; POTASSIUM 3.8 mmol/L (3.5-5.1)
[2016-11-16] MEDS: INSULIN ASPART 300 UNITS/3 ML INSULN.PEN SQ SCH ×4 (08:00→20:30)
--- NOTE | 2016-11-16 09:17 | PDOC ---
PULMONARY PROGRESS NOTES Subjective FEELS BETTER NO SOA Vitals Vital Signs Date Time Temp Pulse Resp B/P Pulse Ox O2 Delivery O2 Flow Rate FiO2 11/16/16 07:18 98 Nasal Cannula 2.0 11/16/16 02:55 98 21 149/68 11/15/16 22:49 98.1 98.1 General: Alert, No acute distress Lungs: Clear Cardiovascular: S1, S2 Abdomen: Soft, Non-tender Neuro Exam: Alert Extremities: Other (trace edema) Skin: Warm Labs Laboratory Tests Test 11/14/16 11:16 11/14/16 17:23 11/14/16 20:10 11/15/16 03:18 Glucose (Fingerstick) 102mg/dL (70-99) 198mg/dL (70-99) 159mg/dL (70-99) White Blood Count 12.0x10^3/uL (4.0-11.0) Red Blood Count 4.57x10^6/uL (4.30-5.70) Hemoglobin 9.7g/dL (13.0-17.5) Hematocrit 32.6% (39.0-53.0) Mean Corpuscular Volume 71fL (79-100) Mean Corpuscular Hemoglobin 21pg (25-35) Mean Corpuscular Hemoglobin Concent 30g/dL (31-37) Red Cell Distribution Width 22.5% (11.5-14.5) Platelet Count 276x10^3/uL (140-400) Neutrophils (%) (Auto) 67% (31-73) Lymphocytes (%) (Auto) 28% (24-48) Monocytes (%) (Auto) 5% (0-9) Eosinophils (%) (Auto) 0% (0-3) Basophils (%) (Auto) 0% (0-3) Neutrophils # (Auto) 8.1x10^3uL (1.8-7.7) Lymphocytes # (Auto) 3.3x10^3/uL (1.0-4.8) Monocytes # (Auto) 0.6x10^3/uL (0.0-1.1) Eosinophils # (Auto) 0.0x10^3/uL (0.0-0.7) Basophils # (Auto) 0.0x10^3/uL (0.0-0.2) Sodium Level 140mmol/L (136-145) Potassium Level 4.1mmol/L (3.5-5.1) Chloride Level 101mmol/L (98-107) Carbon Dioxide Level 33mmol/L (21-32) Anion Gap 6 (6-14) Blood Urea Nitrogen 16mg/dL (8-26) Creatinine 0.8mg/dL (0.7-1.3) Estimated GFR (Cockcroft-Gault) 98.9 Glucose Level 99mg/dL (70-99) Calcium Level 9.0mg/dL (8.5-10.1) Test 11/15/16 07:39 11/15/16 11:40 11/15/16 17:06 11/15/16 20:41 Glucose (Fingerstick) 110mg/dL (70-99) 143mg/dL (70-99) 168mg/dL (70-99) 134mg/dL (70-99) Test 11/16/16 06:30 11/16/16 07:27 White Blood Count 14.1x10^3/uL (4.0-11.0) Red Blood Count 4.63x10^6/uL (4.30-5.70) Hemoglobin 9.8g/dL (13.0-17.5) Hematocrit 33.3% (39.0-53.0) Mean Corpuscular Volume 72fL (79-100) Mean Corpuscular Hemoglobin 21pg (25-35) Mean Corpuscular Hemoglobin Concent 29g/dL (31-37) Red Cell Distribution Width 22.4% (11.5-14.5) Platelet Count 261x10^3/uL (140-400) Neutrophils (%) (Auto) 63% (31-73) Lymphocytes (%) (Auto) 31% (24-48) Monocytes (%) (Auto) 4% (0-9) Eosinophils (%) (Auto) 1% (0-3) Basophils (%) (Auto) 1% (0-3) Neutrophils # (Auto) 8.9x10^3uL (1.8-7.7) Lymphocytes # (Auto) 4.3x10^3/uL (1.0-4.8) Monocytes # (Auto) 0.6x10^3/uL (0.0-1.1) Eosinophils # (Auto) 0.2x10^3/uL (0.0-0.7) Basophils # (Auto) 0.1x10^3/uL (0.0-0.2) Sodium Level 138mmol/L (136-145) Potassium Level 3.8mmol/L (3.5-5.1) Chloride Level 102mmol/L (98-107) Carbon Dioxide Level 32mmol/L (21-32) Anion Gap 4 (6-14) Blood Urea Nitrogen 15mg/dL (8-26) Creatinine 0.7mg/dL (0.7-1.3) Estimated GFR (Cockcroft-Gault) 115.4 Glucose Level 85mg/dL (70-99) Calcium Level 8.5mg/dL (8.5-10.1) Glucose (Fingerstick) 147mg/dL (70-99) Laboratory Tests Test 11/15/16 11:40 11/15/16 17:06 11/15/16 20:41 11/16/16 06:30 Glucose (Fingerstick) 143mg/dL (70-99) 168mg/dL (70-99) 134mg/dL (70-99) White Blood Count 14.1x10^3/uL (4.0-11.0) Red Blood Count 4.63x10^6/uL (4.30-5.70) Hemoglobin 9.8g/dL (13.0-17.5) Hematocrit 33.3% (39.0-53.0) Mean Corpuscular Volume 72fL (79-100) Mean Corpuscular Hemoglobin 21pg (25-35) Mean Corpuscular Hemoglobin Concent 29g/dL (31-37) Red Cell Distribution Width 22.4% (11.5-14.5) Platelet Count 261x10^3/uL (140-400) Neutrophils (%) (Auto) 63% (31-73) Lymphocytes (%) (Auto) 31% (24-48) Monocytes (%) (Auto) 4% (0-9) Eosinophils (%) (Auto) 1% (0-3) Basophils (%) (Auto) 1% (0-3) Neutrophils # (Auto) 8.9x10^3uL (1.8-7.7) Lymphocytes # (Auto) 4.3x10^3/uL (1.0-4.8) Monocytes # (Auto) 0.6x10^3/uL (0.0-1.1) Eosinophils # (Auto) 0.2x10^3/uL (0.0-0.7) Basophils # (Auto) 0.1x10^3/uL (0.0-0.2) Sodium Level 138mmol/L (136-145) Potassium Level 3.8mmol/L (3.5-5.1) Chloride Level 102mmol/L (98-107) Carbon Dioxide Level 32mmol/L (21-32) Anion Gap 4 (6-14) Blood Urea Nitrogen 15mg/dL (8-26) Creatinine 0.7mg/dL (0.7-1.3) Estimated GFR (Cockcroft-Gault) 115.4 Glucose Level 85mg/dL (70-99) Calcium Level 8.5mg/dL (8.5-10.1) Test 11/16/16 07:27 Glucose (Fingerstick) 147mg/dL (70-99) Medications Active Scripts Medications Dose Route/Sig Days Date Category Prednisone 5 Mg Tablet 5 Mg PO 08/14/16 Reported Protonix (Pantoprazole Sodium) 40 Mg Tablet.dr 1 Tab PO DAILY 08/14/16 Rx Pulmicort Flexhaler (Budesonide) 180 Mcg Aer.pow.ba 2 Puff IH BID 08/14/16 Rx Impression . 1. Acute respiratory failure secondary to acute exacerbation of chronic obstructive pulmonary disease. 2. Acute exacerbation of chronic obstructive pulmonary disease. 3. Suspect secondary pulmonary hypertension. 4. Obstructive sleep apnea. 5. Tobacco dependent. 6. Morbid obesity. 7. Diabetes. 8. 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 1. Recommend continue BiPAP qhs and oxygen supplementation to maintain sats above 90%. 2. Continue Levaquin and steroids. 3. Nebulized treatments. 4. Obtain V/Q and dopplers lower extremity 5. resume home coumadin FRAN CORDERO MD November 16, 2016 09:17
[2016-11-16] MEDS: PANTOPRAZOLE 40 MG TABLET.DR. PO SCH (09:39)
[2016-11-16] MEDS: ENOXAPARIN 40 MG/0.4 ML SYRINGE. SQ SCH (09:39)
[2016-11-16] MEDS: predniSONE 20 MG TABLET PO SCH (09:39)
[2016-11-16 10:21] LABS: PROTHROMBIN TIME PATIENT 12.9 SEC (11.7-14.0)
[2016-11-16 10:42] VITALS: BP 118/81
--- NOTE | 2016-11-16 11:59 | PDOC ---
PROGRESS NOTES Chief Complaint Chief Complaint [id number] respiratory failure ASSESSMENT AND PLAN: 1. ?COPD exacerbation: steroids, nebs O2, PRN BIPAP, on Nasal canula, 2. GOLDEN: BiPAP prn 3. Hypoventilation syndrome with massive obesity 4. Anemia: microcytic, suspicious for iron deficiency. anemia labs ordered 5. HTN: by report. BPs WNL w/o meds here 6. Prophylaxis: Lovenox 7. Nicotine dependence: on nicotine patch 8. Daeez-et-kfvadqk respiratory failure. 9. 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( all per history and at [facility]), supposed to be on Coumadin: he didn't mention to us till today, started on warfarin, pharmacy to dose, History of Present Illness History of Present Illness on Nasal canula Vitals Vitals Vital Signs Date Time Temp Pulse Resp B/P Pulse Ox O2 Delivery O2 Flow Rate FiO2 11/16/16 10:42 98.1 112 20 118/81 96 Nasal Cannula 2.0 98.1 Physical Exam General: Alert, Oriented X3 Heart: Regular rate, Normal S1, Normal S2 Lungs: Clear Abdomen: Normal bowel sounds, Other (massively obese) Extremities: No clubbing, No cyanosis Skin: No rashes Labs LABS Laboratory Tests Test 11/15/16 17:06 11/15/16 20:41 11/16/16 06:30 11/16/16 07:27 Glucose (Fingerstick) 168mg/dL (70-99) 134mg/dL (70-99) 147mg/dL (70-99) White Blood Count 14.1x10^3/uL (4.0-11.0) Red Blood Count 4.63x10^6/uL (4.30-5.70) Hemoglobin 9.8g/dL (13.0-17.5) Hematocrit 33.3% (39.0-53.0) Mean Corpuscular Volume 72fL (79-100) Mean Corpuscular Hemoglobin 21pg (25-35) Mean Corpuscular Hemoglobin Concent 29g/dL (31-37) Red Cell Distribution Width 22.4% (11.5-14.5) Platelet Count 261x10^3/uL (140-400) Neutrophils (%) (Auto) 63% (31-73) Lymphocytes (%) (Auto) 31% (24-48) Monocytes (%) (Auto) 4% (0-9) Eosinophils (%) (Auto) 1% (0-3) Basophils (%) (Auto) 1% (0-3) Neutrophils # (Auto) 8.9x10^3uL (1.8-7.7) Lymphocytes # (Auto) 4.3x10^3/uL (1.0-4.8) Monocytes # (Auto) 0.6x10^3/uL (0.0-1.1) Eosinophils # (Auto) 0.2x10^3/uL (0.0-0.7) Basophils # (Auto) 0.1x10^3/uL (0.0-0.2) Sodium Level 138mmol/L (136-145) Potassium Level 3.8mmol/L (3.5-5.1) Chloride Level 102mmol/L (98-107) Carbon Dioxide Level 32mmol/L (21-32) Anion Gap 4 (6-14) Blood Urea Nitrogen 15mg/dL (8-26) Creatinine 0.7mg/dL (0.7-1.3) Estimated GFR (Cockcroft-Gault) 115.4 Glucose Level 85mg/dL (70-99) Calcium Level 8.5mg/dL (8.5-10.1) Test 11/16/16 09:30 11/16/16 10:35 Prothrombin Time 12.9SEC (11.7-14.0) Prothromb Time International Ratio 1.0 (0.8-1.1) Glucose (Fingerstick) 115mg/dL (70-99) Assessment and Plan Assessmemt and Plan Problems Medical Problems: (1) Acute and chronic respiratory failure Status: Acute (2) COPD exacerbation Status: Acute (3) Elevated lactic acid level Status: Acute (4) Microcytic anemia Status: Acute Problems: Comment Review of Relevant I have reviewed the following items iron (where applicable) has been applied. Labs Laboratory Tests Test 11/14/16 17:23 11/14/16 20:10 11/15/16 03:18 11/15/16 07:39 Glucose (Fingerstick) 198mg/dL (70-99) 159mg/dL (70-99) 110mg/dL (70-99) White Blood Count 12.0x10^3/uL (4.0-11.0) Red Blood Count 4.57x10^6/uL (4.30-5.70) Hemoglobin 9.7g/dL (13.0-17.5) Hematocrit 32.6% (39.0-53.0) Mean Corpuscular Volume 71fL (79-100) Mean Corpuscular Hemoglobin 21pg (25-35) Mean Corpuscular Hemoglobin Concent 30g/dL (31-37) Red Cell Distribution Width 22.5% (11.5-14.5) Platelet Count 276x10^3/uL (140-400) Neutrophils (%) (Auto) 67% (31-73) Lymphocytes (%) (Auto) 28% (24-48) Monocytes (%) (Auto) 5% (0-9) Eosinophils (%) (Auto) 0% (0-3) Basophils (%) (Auto) 0% (0-3) Neutrophils # (Auto) 8.1x10^3uL (1.8-7.7) Lymphocytes # (Auto) 3.3x10^3/uL (1.0-4.8) Monocytes # (Auto) 0.6x10^3/uL (0.0-1.1) Eosinophils # (Auto) 0.0x10^3/uL (0.0-0.7) Basophils # (Auto) 0.0x10^3/uL (0.0-0.2) Sodium Level 140mmol/L (136-145) Potassium Level 4.1mmol/L (3.5-5.1) Chloride Level 101mmol/L (98-107) Carbon Dioxide Level 33mmol/L (21-32) Anion Gap 6 (6-14) Blood Urea Nitrogen 16mg/dL (8-26) Creatinine 0.8mg/dL (0.7-1.3) Estimated GFR (Cockcroft-Gault) 98.9 Glucose Level 99mg/dL (70-99) Calcium Level 9.0mg/dL (8.5-10.1) Test 11/15/16 11:40 11/15/16 17:06 11/15/16 20:41 11/16/16 06:30 Glucose (Fingerstick) 143mg/dL (70-99) 168mg/dL (70-99) 134mg/dL (70-99) White Blood Count 14.1x10^3/uL (4.0-11.0) Red Blood Count 4.63x10^6/uL (4.30-5.70) Hemoglobin 9.8g/dL (13.0-17.5) Hematocrit 33.3% (39.0-53.0) Mean Corpuscular Volume 72fL (79-100) Mean Corpuscular Hemoglobin 21pg (25-35) Mean Corpuscular Hemoglobin Concent 29g/dL (31-37) Red Cell Distribution Width 22.4% (11.5-14.5) Platelet Count 261x10^3/uL (140-400) Neutrophils (%) (Auto) 63% (31-73) Lymphocytes (%) (Auto) 31% (24-48) Monocytes (%) (Auto) 4% (0-9) Eosinophils (%) (Auto) 1% (0-3) Basophils (%) (Auto) 1% (0-3) Neutrophils # (Auto) 8.9x10^3uL (1.8-7.7) Lymphocytes # (Auto) 4.3x10^3/uL (1.0-4.8) Monocytes # (Auto) 0.6x10^3/uL (0.0-1.1) Eosinophils # (Auto) 0.2x10^3/uL (0.0-0.7) Basophils # (Auto) 0.1x10^3/uL (0.0-0.2) Sodium Level 138mmol/L (136-145) Potassium Level 3.8mmol/L (3.5-5.1) Chloride Level 102mmol/L (98-107) Carbon Dioxide Level 32mmol/L (21-32) Anion Gap 4 (6-14) Blood Urea Nitrogen 15mg/dL (8-26) Creatinine 0.7mg/dL (0.7-1.3) Estimated GFR (Cockcroft-Gault) 115.4 Glucose Level 85mg/dL (70-99) Calcium Level 8.5mg/dL (8.5-10.1) Test 11/16/16 07:27 11/16/16 09:30 11/16/16 10:35 Glucose (Fingerstick) 147mg/dL (70-99) 115mg/dL (70-99) Prothrombin Time 12.9SEC (11.7-14.0) Prothromb Time International Ratio 1.0 (0.8-1.1) Laboratory Tests Test 11/15/16 17:06 11/15/16 20:41 11/16/16 06:30 11/16/16 07:27 Glucose (Fingerstick) 168mg/dL (70-99) 134mg/dL (70-99) 147mg/dL (70-99) White Blood Count 14.1x10^3/uL (4.0-11.0) Red Blood Count 4.63x10^6/uL (4.30-5.70) Hemoglobin 9.8g/dL (13.0-17.5) Hematocrit 33.3% (39.0-53.0) Mean Corpuscular Volume 72fL (79-100) Mean Corpuscular Hemoglobin 21pg (25-35) Mean Corpuscular Hemoglobin Concent 29g/dL (31-37) Red Cell Distribution Width 22.4% (11.5-14.5) Platelet Count 261x10^3/uL (140-400) Neutrophils (%) (Auto) 63% (31-73) Lymphocytes (%) (Auto) 31% (24-48) Monocytes (%) (Auto) 4% (0-9) Eosinophils (%) (Auto) 1% (0-3) Basophils (%) (Auto) 1% (0-3) Neutrophils # (Auto) 8.9x10^3uL (1.8-7.7) Lymphocytes # (Auto) 4.3x10^3/uL (1.0-4.8) Monocytes # (Auto) 0.6x10^3/uL (0.0-1.1) Eosinophils # (Auto) 0.2x10^3/uL (0.0-0.7) Basophils # (Auto) 0.1x10^3/uL (0.0-0.2) Sodium Level 138mmol/L (136-145) Potassium Level 3.8mmol/L (3.5-5.1) Chloride Level 102mmol/L (98-107) Carbon Dioxide Level 32mmol/L (21-32) Anion Gap 4 (6-14) Blood Urea Nitrogen 15mg/dL (8-26) Creatinine 0.7mg/dL (0.7-1.3) Estimated GFR (Cockcroft-Gault) 115.4 Glucose Level 85mg/dL (70-99) Calcium Level 8.5mg/dL (8.5-10.1) Test 11/16/16 09:30 11/16/16 10:35 Prothrombin Time 12.9SEC (11.7-14.0) Prothromb Time International Ratio 1.0 (0.8-1.1) Glucose (Fingerstick) 115mg/dL (70-99) Microbiology 11/10/16 Blood Culture - Final, Complete NO GROWTH AFTER 5 DAYS Medications Current Medications Albuterol Sulfate 5 mg 5 mg 1X ONCE NEB Last administered on 11/10/16 20:24; Start 11/10/16 at 20:15; Stop 11/10/16 at 20:17; Status DC Sodium Chloride (Iv Sodium Chloride 0.9% 1000ml Bag) 1,000 ml @ 100 mls/hr Q10H IV Last administered on 11/10/16 21:17; Start 11/10/16 at 20:48; Stop at 06:47; Status DC Methylprednisolone Sodium Succinate (Solu-Medrol 125mg Vial) 125 mg 1X ONCE IV Last administered on 11/10/16 21:16; Start 11/10/16 at 21:00; Stop 11/10/16 at 21:01; Status DC Ondansetron HCl 4 mg 4 mg PRN Q8HRS PRN IV NAUSEA/VOMITING; Start 11/10/16 at 23:00; Stop 11/11/16 at 22:59; Status DC Sodium Chloride (Iv Sodium Chloride 0.9% 1000ml Bag) 1,000 ml @ 125 mls/hr Q8H IV Last administered on 11/11/16 09:04; Start 11/10/16 at 23:00; Stop at 22:59; Status DC Acetaminophen (Tylenol) 650 mg PRN Q4HRS PRN PO FEVER; Start 11/10/16 at 23:00 ; Stop 11/11/16 at 22:59; Status DC Albuterol/ Ipratropium (Duoneb) 3 ml RTQID NEB Last administered on 11/12/16 07:06; Start 11/11/16 at 08:00; Stop 11/12/16 at 07:59; Status DC Methylprednisolone Sodium Succinate (Solu-Medrol 40mg Vial) 60 mg Q6HRS IV Last administered on 11/11/16 12:53; Start 11/11/16 at 00:00; Stop 11/12/16 at 15:10; Status DC Levofloxacin/ Dextrose 1 each 1 each PRN DAILY PRN MC SEE COMMENTS; Start 11/10 at 22:45; Stop 11/12/16 at 14:52; Status DC Levofloxacin/ Dextrose 100 ml @ 100 mls/hr ONCE ONCE IV Last administered on 11/10/16 23:37; Start 11/10/16 at 23:15; Stop 11/11/16 at 00:14; Status DC Levofloxacin/ Dextrose (LEVAQUIN 500mg PREMIX) 100 ml @ 100 mls/hr Q24H IV ; Start 11/11/16 at 21:00; Stop 11/12/16 at 15:00; Status DC Alprazolam (Xanax) 0.5 mg PRN Q8HRS PRN PO ANXIETY / AGITATION Last administered on 11/13/16 08:18; Start 11/11/16 at 00:30 Acetaminophen (Tylenol) 325 mg PRN Q6HRS PRN PO MILD PAIN / TEMP Last administered on 11/12/16 20:50; Start 11/11/16 at 10:00 Hydralazine HCl (Apresoline) 10 mg PRN Q4HRS PRN IVP ELEVATED BP, SEE COMMENTS ; Start 11/11/16 at 10:00 Ondansetron HCl (Zofran) 4 mg PRN Q8HRS PRN IV NAUSEA/VOMITING; Start 11/11/16 at 10:00 Albuterol Sulfate (Ventolin Neb Soln) 2.5 mg PRN Q4HRS PRN NEB SHORTNESS OF BREATH Last administered on 11/15/16 04:18; Start 11/11/16 at 10:00 Pantoprazole Sodium (Protonix) 40 mg DAILY PO Last administered on 11/16/16 09: 39; Start 11/11/16 at 12:00 Non-Formulary Medication 2 puff BID IH ; Start 11/11/16 at 21:00; Status UNV Budesonide (Pulmicort) 0.5 mg RTBID NEB Last administered on 11/16/16 07:18; Start 11/11/16 at 12:00 Nicotine (Nicoderm Cq 21mg) 1 patch PRN DAILY PRN TD SMOKING CESSATION; Start 11/11/16 at 14:45 Enoxaparin Sodium (Lovenox 40mg Syringe) 40 mg Q24H SQ ; Start 11/11/16 at 15:00 ; Stop 11/11/16 at 17:45; Status DC Enoxaparin Sodium (Lovenox 40mg Syringe) 40 mg BID SQ Last administered on 09:39; Start 11/11/16 at 21:00 Insulin Aspart (Novolog) 0-7 UNITS [id number] SQ Last administered on 17:16; Start 11/12/16 at 08:00 Dextrose (Dextrose 50%-Water Syringe) 12.5 gm PRN Q15MIN PRN IV SEE COMMENTS; Start 11/11/16 at 21:45 Levofloxacin (Levaquin) 500 mg DAILY06 PO Last administered on 11/16/16 06:07; Start 11/12/16 at 15:30 Prednisone (Prednisone) 40 mg DAILY PO Last administered on 11/16/16 09:39; Start 11/12/16 at 17:00 Albuterol/ Ipratropium (Duoneb) 3 ml RTQID NEB Last administered on 11/16/16 07 :18; Start 11/12/16 at 20:00 Warfarin Sodium (Coumadin Per Pharmacy) 1 each PRN DAILY PRN [facility] SEE COMMENTS; Start 11/16/16 at 09:30 Active Scripts Active Protonix (Pantoprazole Sodium) 40 Mg Tablet.dr 1 Tab PO DAILY Pulmicort Flexhaler (Budesonide) 180 Mcg Aer.pow.ba 2 Puff IH BID Reported Prednisone 5 Mg Tablet 5 Mg PO Vitals/I & O Vital Sign - Last 24 Hours 11/15/16 11/15/16 11/15/16 11/15/16 15:00 15:26 19:00 19:30 Temp 98.0 98.3 98.0 98.3 Pulse 72 88 Resp 20 B/P 112/78 135/58 Pulse Ox 98 97 96 98 O2 Delivery Room Air Nasal Cannula Nasal Cannula O2 Flow Rate 3.0 2.0 11/15/16 11/15/16 11/15/16 11/16/16 20:00 21:50 22:49 00:24 Temp 98.1 98.1 Pulse 94 Resp 20 B/P 144/77 Pulse Ox 100 98 O2 Delivery Nasal Cannula BiPAP/CPAP BiPAP/CPAP BiPAP/CPAP O2 Flow Rate 2.0 11/16/16 11/16/16 11/16/16 11/16/16 02:37 02:55 05:18 07:00 Temp 97.9 97.9 Pulse 98 103 Resp 20 B/P 149/68 125/66 Pulse Ox 98 94 O2 Delivery BiPAP/CPAP BiPAP/CPAP BiPAP/CPAP Nasal Cannula O2 Flow Rate 2.0 11/16/16 11/16/16 11/16/16 07:18 08:05 10:42 Temp 98.1 98.1 Pulse 112 Resp 20 B/P 118/81 Pulse Ox 98 96 O2 Delivery Nasal Cannula Nasal Cannula Nasal Cannula O2 Flow Rate 2.0 2.0 2.0 Intake and Output 11/15/16 11/15/16 11/16/16 14:59 22:59 06:59 Intake Total 1020 ml 600 ml Output Total 900 ml 900 ml 525 ml Balance 120 ml -300 ml -525 ml ANA COOL MD November 16, 2016 11:59
--- NOTE | 2016-11-16 12:33 | RAD ---
Chest, 2 views, 11/16/2016: History: Shortness of air, cough, congestion Comparison is made to a study from 11/10/2016. The heart size and pulmonary vascularity are normal. No pulmonary infiltrates are seen. There is no evidence of pleural fluid. Mild spurring is present in the spine. IMPRESSION: No acute cardiopulmonary abnormality is detected. Ventilation/perfusion lung scan, 11/16/2016: The ventilation study was performed utilizing 10.7 mCi of xenon-133. Activity in the lungs is mildly heterogeneous. There is mild patchy retention of activity in the lungs on the washout phase suggesting obstructive pulmonary disease. Perfusion imaging was performed utilizing 6.2 mCi of technetium 99m MAA. Activity in the lungs is mildly heterogeneous, similar to that seen on the ventilation study. No segmental or significant unmatched perfusion defect is seen. IMPRESSION: 1. Abnormal ventilation exam suggesting obstructive pulmonary disease. 2. The probability of pulmonary emboli is considered to be low.
[2016-11-16 15:00] VITALS: BP 117/55
[2016-11-16] MEDS ORDERED: WARFARIN 7.5 MG TABLET. PO ONE (16:00)
--- NOTE | 2016-11-16 16:16 | RAD ---
Bilateral lower extremity venous ultrasound, 11/16/2016: History: Leg swelling, previous DVT Duplex evaluation of the deep veins in the lower extremities was performed including grayscale, color-flow and spectral Doppler analysis. The femoral and popliteal veins demonstrate normal compressibility and normal responses to distal augmentation maneuvers. Color imaging of those vessels shows no evidence of intraluminal clot. The visualized deep veins in both calves are patent. IMPRESSION: There is no sonographic evidence of deep vein thrombosis in either lower extremity.
[2016-11-16 19:00] VITALS: BP 129/73
[2016-11-16 23:08] VITALS: BP 138/61
[2016-11-17 05:37] LABS: CREATININE 0.7 mg/dL (0.7-1.3); GFR 115.4; POTASSIUM 4.1 mmol/L (3.5-5.1)
[2016-11-17 05:44] LABS: BASO % 0 % (0-3); EOS % 2 % (0-3); HEMATOCRIT 34.1 % (39.0-53.0); HEMOGLOBIN 10.3 g/dL (13.0-17.5); LYMPH # 4.9 x10^3/uL (1.0-4.8); LYMPH % 30 % (24-48); MEAN CORPUSCULAR HEMOGLOBIN 21 pg (25-35); MEAN CORPUSCULAR HGB CONC 30 g/dL (31-37); MEAN CORPUSCULAR VOLUME 70 fL (79-100); MONO % 4 % (0-9); NEUT % 64 % (31-73); PLATELET COUNT 292 x10^3/uL (140-400); RED BLOOD COUNT 4.85 x10^6/uL (4.30-5.70); RED CELL DISTRIBUTION WIDTH 22.3 % (11.5-14.5); WHITE BLOOD COUNT 16.2 x10^3/uL (4.0-11.0)
[2016-11-17] MEDS: LEVOFLOXACIN 500 MG TABLET PO SCH (05:51)
[2016-11-17 05:55] LABS: INR 1.1 (0.8-1.1); PROTHROMBIN TIME PATIENT 13.2 SEC (11.7-14.0)
[2016-11-17 07:00] VITALS: BP 125/86
[2016-11-17] MEDS: BUDESONIDE 0.5 MG/2 ML NEBU. NEB SCH ×2 (07:35→20:22)
[2016-11-17] MEDS: IPRATRPIUM/ALBUTEROL 0.5/2.5MG 3 ML NEBU. NEB SCH ×4 (07:35→20:22)
[2016-11-17] MEDS: INSULIN ASPART 300 UNITS/3 ML INSULN.PEN SQ SCH ×4 (08:00→20:06)
[2016-11-17] MEDS: PANTOPRAZOLE 40 MG TABLET.DR. PO SCH (08:26)
[2016-11-17] MEDS: predniSONE 20 MG TABLET PO SCH (08:26)
[2016-11-17 10:59] VITALS: BP 141/66
--- NOTE | 2016-11-17 11:32 | PDOC ---
PULMONARY PROGRESS NOTES Subjective FEELS BETTER NO SOA Vitals Vital Signs Date Time Temp Pulse Resp B/P Pulse Ox O2 Delivery O2 Flow Rate FiO2 11/17/16 10:59 97.8 99 22 141/66 93 Room Air 97.8 11/17/16 07:36 2.0 General: Alert, No acute distress Lungs: Clear Cardiovascular: S1, S2 Abdomen: Soft, Non-tender Neuro Exam: Alert Extremities: Other (trace edema) Skin: Warm Labs Laboratory Tests Test 11/15/16 11:40 11/15/16 17:06 11/15/16 20:41 11/16/16 06:30 Glucose (Fingerstick) 143mg/dL (70-99) 168mg/dL (70-99) 134mg/dL (70-99) White Blood Count 14.1x10^3/uL (4.0-11.0) Red Blood Count 4.63x10^6/uL (4.30-5.70) Hemoglobin 9.8g/dL (13.0-17.5) Hematocrit 33.3% (39.0-53.0) Mean Corpuscular Volume 72fL (79-100) Mean Corpuscular Hemoglobin 21pg (25-35) Mean Corpuscular Hemoglobin Concent 29g/dL (31-37) Red Cell Distribution Width 22.4% (11.5-14.5) Platelet Count 261x10^3/uL (140-400) Neutrophils (%) (Auto) 63% (31-73) Lymphocytes (%) (Auto) 31% (24-48) Monocytes (%) (Auto) 4% (0-9) Eosinophils (%) (Auto) 1% (0-3) Basophils (%) (Auto) 1% (0-3) Neutrophils # (Auto) 8.9x10^3uL (1.8-7.7) Lymphocytes # (Auto) 4.3x10^3/uL (1.0-4.8) Monocytes # (Auto) 0.6x10^3/uL (0.0-1.1) Eosinophils # (Auto) 0.2x10^3/uL (0.0-0.7) Basophils # (Auto) 0.1x10^3/uL (0.0-0.2) Sodium Level 138mmol/L (136-145) Potassium Level 3.8mmol/L (3.5-5.1) Chloride Level 102mmol/L (98-107) Carbon Dioxide Level 32mmol/L (21-32) Anion Gap 4 (6-14) Blood Urea Nitrogen 15mg/dL (8-26) Creatinine 0.7mg/dL (0.7-1.3) Estimated GFR (Cockcroft-Gault) 115.4 Glucose Level 85mg/dL (70-99) Calcium Level 8.5mg/dL (8.5-10.1) Test 11/16/16 07:27 11/16/16 09:30 11/16/16 10:35 11/16/16 16:44 Glucose (Fingerstick) 147mg/dL (70-99) 115mg/dL (70-99) 170mg/dL (70-99) Prothrombin Time 12.9SEC (11.7-14.0) Prothromb Time International Ratio 1.0 (0.8-1.1) Test 11/16/16 20:30 11/17/16 05:00 11/17/16 06:59 11/17/16 10:50 Glucose (Fingerstick) 154mg/dL (70-99) 99mg/dL (70-99) 128mg/dL (70-99) White Blood Count 16.2x10^3/uL (4.0-11.0) Red Blood Count 4.85x10^6/uL (4.30-5.70) Hemoglobin 10.3g/dL (13.0-17.5) Hematocrit 34.1% (39.0-53.0) Mean Corpuscular Volume 70fL (79-100) Mean Corpuscular Hemoglobin 21pg (25-35) Mean Corpuscular Hemoglobin Concent 30g/dL (31-37) Red Cell Distribution Width 22.3% (11.5-14.5) Platelet Count 292x10^3/uL (140-400) Neutrophils (%) (Auto) 64% (31-73) Lymphocytes (%) (Auto) 30% (24-48) Monocytes (%) (Auto) 4% (0-9) Eosinophils (%) (Auto) 2% (0-3) Basophils (%) (Auto) 0% (0-3) Neutrophils # (Auto) 10.3x10^3uL (1.8-7.7) Lymphocytes # (Auto) 4.9x10^3/uL (1.0-4.8) Monocytes # (Auto) 0.7x10^3/uL (0.0-1.1) Eosinophils # (Auto) 0.3x10^3/uL (0.0-0.7) Basophils # (Auto) 0.0x10^3/uL (0.0-0.2) Prothrombin Time 13.2SEC (11.7-14.0) Prothromb Time International Ratio 1.1 (0.8-1.1) Sodium Level 138mmol/L (136-145) Potassium Level 4.1mmol/L (3.5-5.1) Chloride Level 101mmol/L (98-107) Carbon Dioxide Level 31mmol/L (21-32) Anion Gap 6 (6-14) Blood Urea Nitrogen 16mg/dL (8-26) Creatinine 0.7mg/dL (0.7-1.3) Estimated GFR (Cockcroft-Gault) 115.4 Glucose Level 95mg/dL (70-99) Calcium Level 9.0mg/dL (8.5-10.1) Laboratory Tests Test 11/16/16 16:44 11/16/16 20:30 11/17/16 05:00 11/17/16 06:59 Glucose (Fingerstick) 170mg/dL (70-99) 154mg/dL (70-99) 99mg/dL (70-99) White Blood Count 16.2x10^3/uL (4.0-11.0) Red Blood Count 4.85x10^6/uL (4.30-5.70) Hemoglobin 10.3g/dL (13.0-17.5) Hematocrit 34.1% (39.0-53.0) Mean Corpuscular Volume 70fL (79-100) Mean Corpuscular Hemoglobin 21pg (25-35) Mean Corpuscular Hemoglobin Concent 30g/dL (31-37) Red Cell Distribution Width 22.3% (11.5-14.5) Platelet Count 292x10^3/uL (140-400) Neutrophils (%) (Auto) 64% (31-73) Lymphocytes (%) (Auto) 30% (24-48) Monocytes (%) (Auto) 4% (0-9) Eosinophils (%) (Auto) 2% (0-3) Basophils (%) (Auto) 0% (0-3) Neutrophils # (Auto) 10.3x10^3uL (1.8-7.7) Lymphocytes # (Auto) 4.9x10^3/uL (1.0-4.8) Monocytes # (Auto) 0.7x10^3/uL (0.0-1.1) Eosinophils # (Auto) 0.3x10^3/uL (0.0-0.7) Basophils # (Auto) 0.0x10^3/uL (0.0-0.2) Prothrombin Time 13.2SEC (11.7-14.0) Prothromb Time International Ratio 1.1 (0.8-1.1) Sodium Level 138mmol/L (136-145) Potassium Level 4.1mmol/L (3.5-5.1) Chloride Level 101mmol/L (98-107) Carbon Dioxide Level 31mmol/L (21-32) Anion Gap 6 (6-14) Blood Urea Nitrogen 16mg/dL (8-26) Creatinine 0.7mg/dL (0.7-1.3) Estimated GFR (Cockcroft-Gault) 115.4 Glucose Level 95mg/dL (70-99) Calcium Level 9.0mg/dL (8.5-10.1) Test 11/17/16 10:50 Glucose (Fingerstick) 128mg/dL (70-99) Medications Active Scripts Medications Dose Route/Sig Days Date Category Prednisone 5 Mg Tablet 5 Mg PO 08/14/16 Reported Protonix (Pantoprazole Sodium) 40 Mg Tablet.dr 1 Tab PO DAILY 08/14/16 Rx Pulmicort Flexhaler (Budesonide) 180 Mcg Aer.pow.ba 2 Puff IH BID 08/14/16 Rx Impression . 1. Acute respiratory failure secondary to acute exacerbation of chronic obstructive pulmonary disease. 2. Acute exacerbation of chronic obstructive pulmonary disease. 3. Suspect secondary pulmonary hypertension. 4. Obstructive sleep apnea. 5. Tobacco dependent. 6. Morbid obesity. 7. Diabetes. 8. 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 1. Recommend continue BiPAP qhs and oxygen supplementation to maintain sats above 90%. 2. Continue Levaquin and steroids. 3. Nebulized treatments. 4. Neg V/Q and dopplers lower extremity 5. resumed home coumadin 6. Can go home on Lovenox for 3 days/ along with coumadin. Pt follows at [facility] and they monitor INR FRAN CORDERO MD November 17, 2016 11:32
--- NOTE | 2016-11-17 14:21 | PDOC ---
PROGRESS NOTES Chief Complaint Chief Complaint Blztm-[id number] respiratory failure ASSESSMENT AND PLAN: 1. ?COPD exacerbation: steroids, nebs O2, PRN BIPAP, on Nasal canula, 2. GOLDEN: BiPAP prn 3. Hypoventilation syndrome with massive obesity 4. Anemia: microcytic, suspicious for iron deficiency. anemia labs ordered 5. HTN: by report. BPs WNL w/o meds here 6. Prophylaxis: Lovenox 7. Nicotine dependence: on nicotine patch 8. Wmaxn-dv-[id number] respiratory failure. 9. 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( all per history and at [facility]), supposed to be on Coumadin: he didn't mention to us till 11/16, started on warfarin, pharmacy to dose, plan to dc pt today, but need INR check and lovenox bid as per pulm (pt lives in a homeless senior living as per nurse) will dc pt tmr, with lovenox 130mg sq bid x3-5days, [facility], cont coumadin (hope to find home dose), 6min walk today History of Present Illness History of Present Illness on RA now, INR 1.1 Vitals Vitals Vital Signs Date Time Temp Pulse Resp B/P Pulse Ox O2 Delivery O2 Flow Rate FiO2 11/17/16 12:08 98 Room Air 11/17/16 10:59 97.8 99 22 141/66 97.8 11/17/16 07:36 2.0 Physical Exam General: Alert, Oriented X3 Heart: Regular rate, Normal S1, Normal S2 Lungs: Clear Abdomen: Normal bowel sounds, Other (massively obese) Extremities: No clubbing, No cyanosis Skin: No rashes Labs LABS Laboratory Tests Test 11/16/16 16:44 11/16/16 20:30 11/17/16 05:00 11/17/16 06:59 Glucose (Fingerstick) 170mg/dL (70-99) 154mg/dL (70-99) 99mg/dL (70-99) White Blood Count 16.2x10^3/uL (4.0-11.0) Red Blood Count 4.85x10^6/uL (4.30-5.70) Hemoglobin 10.3g/dL (13.0-17.5) Hematocrit 34.1% (39.0-53.0) Mean Corpuscular Volume 70fL (79-100) Mean Corpuscular Hemoglobin 21pg (25-35) Mean Corpuscular Hemoglobin Concent 30g/dL (31-37) Red Cell Distribution Width 22.3% (11.5-14.5) Platelet Count 292x10^3/uL (140-400) Neutrophils (%) (Auto) 64% (31-73) Lymphocytes (%) (Auto) 30% (24-48) Monocytes (%) (Auto) 4% (0-9) Eosinophils (%) (Auto) 2% (0-3) Basophils (%) (Auto) 0% (0-3) Neutrophils # (Auto) 10.3x10^3uL (1.8-7.7) Lymphocytes # (Auto) 4.9x10^3/uL (1.0-4.8) Monocytes # (Auto) 0.7x10^3/uL (0.0-1.1) Eosinophils # (Auto) 0.3x10^3/uL (0.0-0.7) Basophils # (Auto) 0.0x10^3/uL (0.0-0.2) Prothrombin Time 13.2SEC (11.7-14.0) Prothromb Time International Ratio 1.1 (0.8-1.1) Sodium Level 138mmol/L (136-145) Potassium Level 4.1mmol/L (3.5-5.1) Chloride Level 101mmol/L (98-107) Carbon Dioxide Level 31mmol/L (21-32) Anion Gap 6 (6-14) Blood Urea Nitrogen 16mg/dL (8-26) Creatinine 0.7mg/dL (0.7-1.3) Estimated GFR (Cockcroft-Gault) 115.4 Glucose Level 95mg/dL (70-99) Calcium Level 9.0mg/dL (8.5-10.1) Test 11/17/16 10:50 Glucose (Fingerstick) 128mg/dL (70-99) Review of Systems Review of Systems No fever, chills, sob or chest pain Assessment and Plan Assessmemt and Plan Problems Medical Problems: (1) Acute and chronic respiratory failure Status: Acute (2) COPD exacerbation Status: Acute (3) Elevated lactic acid level Status: Acute (4) Microcytic anemia Status: Acute Problems: Comment Review of Relevant I have reviewed the following items iron (where applicable) has been applied. Labs Laboratory Tests Test 11/15/16 17:06 11/15/16 20:41 11/16/16 06:30 11/16/16 07:27 Glucose (Fingerstick) 168mg/dL (70-99) 134mg/dL (70-99) 147mg/dL (70-99) White Blood Count 14.1x10^3/uL (4.0-11.0) Red Blood Count 4.63x10^6/uL (4.30-5.70) Hemoglobin 9.8g/dL (13.0-17.5) Hematocrit 33.3% (39.0-53.0) Mean Corpuscular Volume 72fL (79-100) Mean Corpuscular Hemoglobin 21pg (25-35) Mean Corpuscular Hemoglobin Concent 29g/dL (31-37) Red Cell Distribution Width 22.4% (11.5-14.5) Platelet Count 261x10^3/uL (140-400) Neutrophils (%) (Auto) 63% (31-73) Lymphocytes (%) (Auto) 31% (24-48) Monocytes (%) (Auto) 4% (0-9) Eosinophils (%) (Auto) 1% (0-3) Basophils (%) (Auto) 1% (0-3) Neutrophils # (Auto) 8.9x10^3uL (1.8-7.7) Lymphocytes # (Auto) 4.3x10^3/uL (1.0-4.8) Monocytes # (Auto) 0.6x10^3/uL (0.0-1.1) Eosinophils # (Auto) 0.2x10^3/uL (0.0-0.7) Basophils # (Auto) 0.1x10^3/uL (0.0-0.2) Sodium Level 138mmol/L (136-145) Potassium Level 3.8mmol/L (3.5-5.1) Chloride Level 102mmol/L (98-107) Carbon Dioxide Level 32mmol/L (21-32) Anion Gap 4 (6-14) Blood Urea Nitrogen 15mg/dL (8-26) Creatinine 0.7mg/dL (0.7-1.3) Estimated GFR (Cockcroft-Gault) 115.4 Glucose Level 85mg/dL (70-99) Calcium Level 8.5mg/dL (8.5-10.1) Test 11/16/16 09:30 11/16/16 10:35 11/16/16 16:44 11/16/16 20:30 Prothrombin Time 12.9SEC (11.7-14.0) Prothromb Time International Ratio 1.0 (0.8-1.1) Glucose (Fingerstick) 115mg/dL (70-99) 170mg/dL (70-99) 154mg/dL (70-99) Test 11/17/16 05:00 11/17/16 06:59 11/17/16 10:50 White Blood Count 16.2x10^3/uL (4.0-11.0) Red Blood Count 4.85x10^6/uL (4.30-5.70) Hemoglobin 10.3g/dL (13.0-17.5) Hematocrit 34.1% (39.0-53.0) Mean Corpuscular Volume 70fL (79-100) Mean Corpuscular Hemoglobin 21pg (25-35) Mean Corpuscular Hemoglobin Concent 30g/dL (31-37) Red Cell Distribution Width 22.3% (11.5-14.5) Platelet Count 292x10^3/uL (140-400) Neutrophils (%) (Auto) 64% (31-73) Lymphocytes (%) (Auto) 30% (24-48) Monocytes (%) (Auto) 4% (0-9) Eosinophils (%) (Auto) 2% (0-3) Basophils (%) (Auto) 0% (0-3) Neutrophils # (Auto) 10.3x10^3uL (1.8-7.7) Lymphocytes # (Auto) 4.9x10^3/uL (1.0-4.8) Monocytes # (Auto) 0.7x10^3/uL (0.0-1.1) Eosinophils # (Auto) 0.3x10^3/uL (0.0-0.7) Basophils # (Auto) 0.0x10^3/uL (0.0-0.2) Prothrombin Time 13.2SEC (11.7-14.0) Prothromb Time International Ratio 1.1 (0.8-1.1) Sodium Level 138mmol/L (136-145) Potassium Level 4.1mmol/L (3.5-5.1) Chloride Level 101mmol/L (98-107) Carbon Dioxide Level 31mmol/L (21-32) Anion Gap 6 (6-14) Blood Urea Nitrogen 16mg/dL (8-26) Creatinine 0.7mg/dL (0.7-1.3) Estimated GFR (Cockcroft-Gault) 115.4 Glucose Level 95mg/dL (70-99) Calcium Level 9.0mg/dL (8.5-10.1) Glucose (Fingerstick) 99mg/dL (70-99) 128mg/dL (70-99) Laboratory Tests Test 11/16/16 16:44 11/16/16 20:30 11/17/16 05:00 11/17/16 06:59 Glucose (Fingerstick) 170mg/dL (70-99) 154mg/dL (70-99) 99mg/dL (70-99) White Blood Count 16.2x10^3/uL (4.0-11.0) Red Blood Count 4.85x10^6/uL (4.30-5.70) Hemoglobin 10.3g/dL (13.0-17.5) Hematocrit 34.1% (39.0-53.0) Mean Corpuscular Volume 70fL (79-100) Mean Corpuscular Hemoglobin 21pg (25-35) Mean Corpuscular Hemoglobin Concent 30g/dL (31-37) Red Cell Distribution Width 22.3% (11.5-14.5) Platelet Count 292x10^3/uL (140-400) Neutrophils (%) (Auto) 64% (31-73) Lymphocytes (%) (Auto) 30% (24-48) Monocytes (%) (Auto) 4% (0-9) Eosinophils (%) (Auto) 2% (0-3) Basophils (%) (Auto) 0% (0-3) Neutrophils # (Auto) 10.3x10^3uL (1.8-7.7) Lymphocytes # (Auto) 4.9x10^3/uL (1.0-4.8) Monocytes # (Auto) 0.7x10^3/uL (0.0-1.1) Eosinophils # (Auto) 0.3x10^3/uL (0.0-0.7) Basophils # (Auto) 0.0x10^3/uL (0.0-0.2) Prothrombin Time 13.2SEC (11.7-14.0) Prothromb Time International Ratio 1.1 (0.8-1.1) Sodium Level 138mmol/L (136-145) Potassium Level 4.1mmol/L (3.5-5.1) Chloride Level 101mmol/L (98-107) Carbon Dioxide Level 31mmol/L (21-32) Anion Gap 6 (6-14) Blood Urea Nitrogen 16mg/dL (8-26) Creatinine 0.7mg/dL (0.7-1.3) Estimated GFR (Cockcroft-Gault) 115.4 Glucose Level 95mg/dL (70-99) Calcium Level 9.0mg/dL (8.5-10.1) Test 11/17/16 10:50 Glucose (Fingerstick) 128mg/dL (70-99) Microbiology 11/10/16 Blood Culture - Final, Complete NO GROWTH AFTER 5 DAYS Medications Current Medications Albuterol Sulfate 5 mg 5 mg 1X ONCE NEB Last administered on 11/10/16 20:24; Start 11/10/16 at 20:15; Stop 11/10/16 at 20:17; Status DC Sodium Chloride (Iv Sodium Chloride 0.9% 1000ml Bag) 1,000 ml @ 100 mls/hr Q10H IV Last administered on 11/10/16 21:17; Start 11/10/16 at 20:48; Stop at 06:47; Status DC Methylprednisolone Sodium Succinate (Solu-Medrol 125mg Vial) 125 mg 1X ONCE IV Last administered on 11/10/16 21:16; Start 11/10/16 at 21:00; Stop 11/10/16 at 21:01; Status DC Ondansetron HCl 4 mg 4 mg PRN Q8HRS PRN IV NAUSEA/VOMITING; Start 11/10/16 at 23:00; Stop 11/11/16 at 22:59; Status DC Sodium Chloride (Iv Sodium Chloride 0.9% 1000ml Bag) 1,000 ml @ 125 mls/hr Q8H IV Last administered on 11/11/16 09:04; Start 11/10/16 at 23:00; Stop at 22:59; Status DC Acetaminophen (Tylenol) 650 mg PRN Q4HRS PRN PO FEVER; Start 11/10/16 at 23:00 ; Stop 11/11/16 at 22:59; Status DC Albuterol/ Ipratropium (Duoneb) 3 ml RTQID NEB Last administered on 11/12/16 07:06; Start 11/11/16 at 08:00; Stop 11/12/16 at 07:59; Status DC Methylprednisolone Sodium Succinate (Solu-Medrol 40mg Vial) 60 mg Q6HRS IV Last administered on 11/11/16 12:53; Start 11/11/16 at 00:00; Stop 11/12/16 at 15:10; Status DC Levofloxacin/ Dextrose 1 each 1 each PRN DAILY PRN MC SEE COMMENTS; Start 11/10 at 22:45; Stop 11/12/16 at 14:52; Status DC Levofloxacin/ Dextrose 100 ml @ 100 mls/hr ONCE ONCE IV Last administered on 11/10/16 23:37; Start 11/10/16 at 23:15; Stop 11/11/16 at 00:14; Status DC Levofloxacin/ Dextrose (LEVAQUIN 500mg PREMIX) 100 ml @ 100 mls/hr Q24H IV ; Start 11/11/16 at 21:00; Stop 11/12/16 at 15:00; Status DC Alprazolam (Xanax) 0.5 mg PRN Q8HRS PRN PO ANXIETY / AGITATION Last administered on 11/13/16 08:18; Start 11/11/16 at 00:30 Acetaminophen (Tylenol) 325 mg PRN Q6HRS PRN PO MILD PAIN / TEMP Last administered on 11/12/16 20:50; Start 11/11/16 at 10:00 Hydralazine HCl (Apresoline) 10 mg PRN Q4HRS PRN IVP ELEVATED BP, SEE COMMENTS ; Start 11/11/16 at 10:00 Ondansetron HCl (Zofran) 4 mg PRN Q8HRS PRN IV NAUSEA/VOMITING; Start 11/11/16 at 10:00 Albuterol Sulfate (Ventolin Neb Soln) 2.5 mg PRN Q4HRS PRN NEB SHORTNESS OF BREATH Last administered on 11/15/16 04:18; Start 11/11/16 at 10:00 Pantoprazole Sodium (Protonix) 40 mg DAILY PO Last administered on 11/17/16 08: 26; Start 11/11/16 at 12:00 Non-Formulary Medication 2 puff BID IH ; Start 11/11/16 at 21:00; Status UNV Budesonide (Pulmicort) 0.5 mg RTBID NEB Last administered on 11/17/16 07:35; Start 11/11/16 at 12:00 Nicotine (Nicoderm Cq 21mg) 1 patch PRN DAILY PRN TD SMOKING CESSATION; Start 11/11/16 at 14:45 Enoxaparin Sodium (Lovenox 40mg Syringe) 40 mg Q24H SQ ; Start 11/11/16 at 15:00 ; Stop 11/11/16 at 17:45; Status DC Enoxaparin Sodium (Lovenox 40mg Syringe) 40 mg BID SQ Last administered on 09:39; Start 11/11/16 at 21:00; Stop 11/16/16 at 12:51; Status DC Insulin Aspart (Novolog) 0-7 UNITS [id number] SQ Last administered on 11/16/16 17:19; Start 11/12/16 at 08:00 Dextrose (Dextrose 50%-Water Syringe) 12.5 gm PRN Q15MIN PRN IV SEE COMMENTS; Start 11/11/16 at 21:45 Levofloxacin (Levaquin) 500 mg DAILY06 PO Last administered on 11/17/16 05:51; Start 11/12/16 at 15:30 Prednisone (Prednisone) 40 mg DAILY PO Last administered on 11/17/16 08:26; Start 11/12/16 at 17:00 Albuterol/ Ipratropium (Duoneb) 3 ml RTQID NEB Last administered on 11/17/16 12 :07; Start 11/12/16 at 20:00 Warfarin Sodium (Coumadin Per Pharmacy) 1 each PRN DAILY PRN MC SEE COMMENTS Last administered on 11/16/16 15:17; Start 11/16/16 at 09:30 Enoxaparin Sodium (Lovenox 150mg Syringe) 130 mg BID SQ Last administered on 08:26; Start 11/16/16 at 21:00 Warfarin Sodium (Coumadin) 7.5 mg 1X WARF ONCE PO Last administered on 17:14; Start 11/16/16 at 16:00; Stop 11/16/16 at 16:01; Status DC Active Scripts Active Protonix (Pantoprazole Sodium) 40 Mg Tablet. 1 Tab PO DAILY Pulmicort Flexhaler (Budesonide) 180 Mcg Aer.pow.ba 2 Puff IH BID Reported Prednisone 5 Mg Tablet 5 Mg PO Vitals/I & O Vital Sign - Last 24 Hours 11/16/16 11/16/16 11/16/16 11/16/16 15:00 15:45 19:00 19:54 Temp 98.2 98.1 98.2 98.1 Pulse 103 91 Resp 20 20 B/P 117/55 129/73 Pulse Ox 96 93 96 O2 Delivery Nasal Cannula Nasal Cannula Nasal Cannula Nasal Cannula O2 Flow Rate 2.0 2.0 3.0 2.0 11/16/16 11/16/16 11/16/16 11/16/16 20:00 22:03 23:08 23:45 Temp 98.5 98.5 Pulse 83 Resp 20 B/P 138/61 Pulse Ox 98 O2 Delivery Nasal Cannula BiPAP/CPAP BiPAP/CPAP BiPAP/CPAP O2 Flow Rate 2.0 11/17/16 11/17/16 11/17/16 11/17/16 01:35 07:00 07:36 08:00 Temp 97.8 97.8 Pulse 94 Resp 22 B/P 125/86 Pulse Ox 100 97 O2 Delivery BiPAP/CPAP Nasal Cannula Nasal Cannula Room Air O2 Flow Rate 2.0 2.0 11/17/16 11/17/16 10:59 12:08 Temp 97.8 97.8 Pulse 99 Resp 22 B/P 141/66 Pulse Ox 93 98 O2 Delivery Room Air Room Air Intake and Output 511/16/16 11/17/16 15:00 23:00 07:00 Intake Total 500 ml 220 ml 2050 ml Output Total 301 ml 1250 ml Balance 500 ml -81 ml 800 ml GILLIAN GONSALES MD November 17, 2016 14:21
[2016-11-17 14:57] VITALS: BP 141/68
[2016-11-17] MEDS ORDERED: WARFARIN 10 MG TABLET. PO ONE (16:00)
[2016-11-17 19:00] VITALS: BP 138/70
[2016-11-17 23:00] VITALS: BP 125/61
[2016-11-18] MEDS: LEVOFLOXACIN 500 MG TABLET PO SCH (05:48)
[2016-11-18 06:41] LABS: CALCIUM 8.6 mg/dL (8.5-10.1); CREATININE 0.8 mg/dL (0.7-1.3); GFR 98.9; POTASSIUM 3.9 mmol/L (3.5-5.1)
[2016-11-18 06:44] LABS: INR 1.2 (0.8-1.1); PROTHROMBIN TIME PATIENT 14.2 SEC (11.7-14.0)
[2016-11-18 07:00] VITALS: BP 124/72
[2016-11-18] MEDS: BUDESONIDE 0.5 MG/2 ML NEBU. NEB SCH (07:01)
[2016-11-18] MEDS: IPRATRPIUM/ALBUTEROL 0.5/2.5MG 3 ML NEBU. NEB SCH ×3 (07:01→15:13)
[2016-11-18] MEDS: INSULIN ASPART 300 UNITS/3 ML INSULN.PEN SQ SCH ×2 (08:00→12:00)
[2016-11-18] MEDS: predniSONE 20 MG TABLET PO SCH (08:47)
[2016-11-18] MEDS: PANTOPRAZOLE 40 MG TABLET.DR. PO SCH (08:47)
[2016-11-18 10:36] VITALS: BP 116/62
[2016-11-18] MEDS ORDERED: WARF-78 PO (10:51)
[2016-11-18] MEDS ORDERED: ENOX150D3 SQ (10:51)
[2016-11-18] MEDS ORDERED: PRED20TA PO (10:52)
--- NOTE | 2016-11-18 10:54 | PDOC ---
PULMONARY PROGRESS NOTES Subjective FEELS BETTER NO SOA Vitals Vital Signs Date Time Temp Pulse Resp B/P Pulse Ox O2 Delivery O2 Flow Rate FiO2 11/18/16 10:36 97.8 95 22 116/62 94 Room Air 97.8 11/17/16 20:00 2.0 General: Alert, No acute distress Lungs: Clear Cardiovascular: S1, S2 Abdomen: Soft, Non-tender Neuro Exam: Alert Extremities: Other (trace edema) Skin: Warm Labs Laboratory Tests Test 11/16/16 16:44 11/16/16 20:30 11/17/16 05:00 11/17/16 06:59 Glucose (Fingerstick) 170mg/dL (70-99) 154mg/dL (70-99) 99mg/dL (70-99) White Blood Count 16.2x10^3/uL (4.0-11.0) Red Blood Count 4.85x10^6/uL (4.30-5.70) Hemoglobin 10.3g/dL (13.0-17.5) Hematocrit 34.1% (39.0-53.0) Mean Corpuscular Volume 70fL (79-100) Mean Corpuscular Hemoglobin 21pg (25-35) Mean Corpuscular Hemoglobin Concent 30g/dL (31-37) Red Cell Distribution Width 22.3% (11.5-14.5) Platelet Count 292x10^3/uL (140-400) Neutrophils (%) (Auto) 64% (31-73) Lymphocytes (%) (Auto) 30% (24-48) Monocytes (%) (Auto) 4% (0-9) Eosinophils (%) (Auto) 2% (0-3) Basophils (%) (Auto) 0% (0-3) Neutrophils # (Auto) 10.3x10^3uL (1.8-7.7) Lymphocytes # (Auto) 4.9x10^3/uL (1.0-4.8) Monocytes # (Auto) 0.7x10^3/uL (0.0-1.1) Eosinophils # (Auto) 0.3x10^3/uL (0.0-0.7) Basophils # (Auto) 0.0x10^3/uL (0.0-0.2) Prothrombin Time 13.2SEC (11.7-14.0) Prothromb Time International Ratio 1.1 (0.8-1.1) Sodium Level 138mmol/L (136-145) Potassium Level 4.1mmol/L (3.5-5.1) Chloride Level 101mmol/L (98-107) Carbon Dioxide Level 31mmol/L (21-32) Anion Gap 6 (6-14) Blood Urea Nitrogen 16mg/dL (8-26) Creatinine 0.7mg/dL (0.7-1.3) Estimated GFR (Cockcroft-Gault) 115.4 Glucose Level 95mg/dL (70-99) Calcium Level 9.0mg/dL (8.5-10.1) Test 11/17/16 10:50 11/17/16 15:55 11/17/16 20:05 11/18/16 05:40 Glucose (Fingerstick) 128mg/dL (70-99) 178mg/dL (70-99) 151mg/dL (70-99) Prothrombin Time 14.2SEC (11.7-14.0) Prothromb Time International Ratio 1.2 (0.8-1.1) Sodium Level 139mmol/L (136-145) Potassium Level 3.9mmol/L (3.5-5.1) Chloride Level 102mmol/L (98-107) Carbon Dioxide Level 31mmol/L (21-32) Anion Gap 6 (6-14) Blood Urea Nitrogen 13mg/dL (8-26) Creatinine 0.8mg/dL (0.7-1.3) Estimated GFR (Cockcroft-Gault) 98.9 Glucose Level 82mg/dL (70-99) Calcium Level 8.6mg/dL (8.5-10.1) Test 11/18/16 07:28 11/18/16 10:48 Glucose (Fingerstick) 99mg/dL (70-99) 130mg/dL (70-99) Laboratory Tests Test 11/17/16 15:55 11/17/16 20:05 11/18/16 05:40 11/18/16 07:28 Glucose (Fingerstick) 178mg/dL (70-99) 151mg/dL (70-99) 99mg/dL (70-99) Prothrombin Time 14.2SEC (11.7-14.0) Prothromb Time International Ratio 1.2 (0.8-1.1) Sodium Level 139mmol/L (136-145) Potassium Level 3.9mmol/L (3.5-5.1) Chloride Level 102mmol/L (98-107) Carbon Dioxide Level 31mmol/L (21-32) Anion Gap 6 (6-14) Blood Urea Nitrogen 13mg/dL (8-26) Creatinine 0.8mg/dL (0.7-1.3) Estimated GFR (Cockcroft-Gault) 98.9 Glucose Level 82mg/dL (70-99) Calcium Level 8.6mg/dL (8.5-10.1) Test 11/18/16 10:48 Glucose (Fingerstick) 130mg/dL (70-99) Medications Active Scripts Medications Dose Route/Sig Days Date Category Prednisone 5 Mg Tablet 5 Mg PO 08/14/16 Reported Protonix (Pantoprazole Sodium) 40 Mg Tablet.dr 1 Tab PO DAILY 08/14/16 Rx Pulmicort Flexhaler (Budesonide) 180 Mcg Aer.pow.ba 2 Puff IH BID 08/14/16 Rx Impression . 1. Acute respiratory failure secondary to acute exacerbation of chronic obstructive pulmonary disease. 2. Acute exacerbation of chronic obstructive pulmonary disease. 3. Suspect secondary pulmonary hypertension. 4. Obstructive sleep apnea. 5. Tobacco dependent. 6. Morbid obesity. 7. Diabetes. 8. 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( all per history and at [facility]), back on coumadin Plan . 1. Recommend continue BiPAP qhs . off oxygen based on 6 min walk 2. Continue Levaquin and steroids. 3. Nebulized treatments. 4. Neg V/Q and dopplers lower extremity 5. resumed home coumadin 6. Can go home today. Pt follows at [facility] and they monitor INR, appointment at [facility] this wednesday and Wednesday for INR check FRAN CORDERO MD November 18, 2016 10:54
--- NOTE | 2016-11-18 13:31 | PDOC3 ---
Discharge Summary [facility] Date of Admission: Nov 10, 2016 Discharge Date: November 18, 2016 Admitting Diagnosis 1. ?COPD exacerbation: steroids, nebs O2, PRN BIPAP, on Nasal canula, 2. GOLDEN: BiPAP prn 3. Hypoventilation syndrome with massive obesity 4. Anemia: microcytic, suspicious for iron deficiency. anemia labs ordered 5. HTN: by report. BPs WNL w/o meds here 6. Prophylaxis: Lovenox 7. Nicotine dependence: on nicotine patch 8. Lrycf-ys-tcliwnu respiratory failure. 9. 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( all per history and at [facility]), supposed to be on Coumadin: he didn't mention to us till 11/16, started on warfarin, pharmacy to dose, Problems: Final Diagnosis CONSULTS pulm Brief Hospital Course Mr. Vyas is a 61 old M, [facility] , comes for cough , sob, copd exacerbation. Pt feels better with steroid, duoneb, levaquin. He also has h/o PE/DVT in 2014, denies another attack, but nurse said he had another one 2016. he didnot tell us he is taking coumadin till 11/16, and it is restarted, VQ SCan and US neg for DVT AND PE this time. given high risk to have PE, pt is on lovenox bridging dc pt home today with lovenox 130mg sq bid x5days, [facility] for [facility]R check, cont coumadin (5mg daily), 6min walk neg. no bipap needed now, cpap at home. dc with steroid tapering, no need levaquin. dc time 40min General: Alert, Oriented X3 Heart: Regular rate, Normal S1, Normal S2 Lungs: Clear Abdomen: Normal bowel sounds, Other (massively obese) Extremities: No clubbing, No cyanosis Skin: No rashes Problems: Disposition home CONDITION AT DISCHARGE: Improved, Stable Diet regular Scheduled Budesonide (Pulmicort Flexhaler) 2 PUFF IH BID Enoxaparin Sodium (Enoxaparin Sodium) 130 MG SQ BID Pantoprazole Sodium (Protonix) 1 TAB PO DAILY Prednisone (Prednisone) 40 MG PO DAILY Warfarin Sodium (Coumadin) 5 MG PO DAILY16 Miscellaneous Medications Prednisone (Prednisone) 5 MG PO (Reported) [facility] GILLIAN GONSALES MD November 18, 2016 13:31
[2016-11-18 15:03] VITALS: BP 120/65
[2016-11-18] MEDS ORDERED: ANTI-COAG MONITOR BY PHARMACY. MC PRN (15:15)
[2016-11-18] MEDS ORDERED: WARFARIN 5 MG TABLET. PO SCH (16:00)
[2016-11-18] MEDS ORDERED: WARFARIN 5 MG TABLET. PO ONE (16:00)
== END 2016-11-18 17:14 | disposition home or self-care (01) | DRG 189 ==
LOC: ER 20:05 → 5 SOUTH 21:18
PROVIDERS: ADMIT Internal Medicine Hematology & Oncology; ATTEND Internal Medicine Hematology & Oncology
PROC: 5A09457 Assistance with Respiratory Ventilation, 24-96 Consecutive Hours, Continuous Positive Airway Pressure (ICD-10-PCS; principal; 2016-11-10)
DX: J96.20 Acute and chronic respiratory failure, unspecified whether with hypoxia or hypercapnia (principal); J44.1 Chronic obstructive pulmonary disease with (acute) exacerbation; Z68.41 Body mass index [BMI] 40.0-44.9, adult; E66.01 Morbid (severe) obesity due to excess calories; D50.9 Iron deficiency anemia, unspecified; E11.9 Type 2 diabetes mellitus without complications; I10 Essential (primary) hypertension; F41.9 Anxiety disorder, unspecified; F17.210 Nicotine dependence, cigarettes, uncomplicated; F10.20 Alcohol dependence, uncomplicated; Z91.018 Allergy to other foods; Z88.8 Allergy status to other drugs, medicaments and biological substances; Z86.718 Personal history of other venous thrombosis and embolism; Z86.711 Personal history of pulmonary embolism; Z82.49 Family history of ischemic heart disease and other diseases of the circulatory system
CPT/HCPCS: 36415; 36600; 71010; 71020; 78582; 80048; 80053; 82553; 82608; 82728; 82746; 82805; 82947; 83540; 83550; 83605; 83880; 84484; 85007; 85027; 85045; 85610; 87040; 87641; 87804; 93005; 93970; 94250; 94620; 94640; 94660; 94760; 96361; 96374; A9540; A9558; J1650; J1815; J1956; J2920; J2930; J7030; J7512; J7620; 97110; 97116; 99291-25

== ENCOUNTER 2016-11-28 18:24 | Emergency (ER) | payer SELFPAY ==
[~2016-11-28] VITALS: Ht 170.2 cm; Wt 117.5 kg
[~2016-11-28 18:24] MED LIST changes: +ENOX150D3 SQ; +PRED20TA PO; +WARF-78 PO
[2016-11-28 18:37] VITALS: BP 156/69
--- NOTE | 2016-11-28 18:39 | PHYS DOC ---
Past Medical History Past Medical History: Anxiety, COPD, Diabetes-Type II, Hypertension Past Surgical History: Other Additional Past Surgical Histo: leg sx, hernia Alcohol Use: Heavy Drug Use: None Adult General HPI HPI Patient is a 61 year old male who presents with bleeding from his puncture site of Lovenox in the abdomen. Patient states he is a DVT he was started on Lovenox subcutaneous injections yesterday and this is a second injection. Patient states her uncontrollable bleeding therefore called EMS. Upon arrival to emergency room the bleeding has stopped. Patient has a large ecchymotic bruise approximately 5 cm in diameter to his right lower quadrant of his abdomen. Patient has no other complaints. Pertinent physical exam findings: Positive tenderness palpation to the right lower quadrant with a 5 cm diameter ecchymotic bruise were negative Lovenox subcutaneous injection site was ED course: 1836: ISTAT order 2010: Discussed lab results the patient who is no longer bleeding discussed at home management Pertinent findings: Hemoglobin 11.2 ED medical decision making: After reviewing the chart, CC/HPI/PMH, PE do not believe the patient is having a life-threatening bleed that needs emergent transfusion or admission at this time. Patient is stable for discharge. Patient is normally bleeding. Additional verbal discharge instructions were provided to the patient and that if symptoms get worse or any new symptoms arise or worsen the patient is to returned emergency room immediately. Review of Systems Review of Systems Constitutional: Denies fever or chills [] Eyes: Denies change in visual acuity, redness, or eye pain [] HENT: Denies nasal congestion or sore throat [] Respiratory: Denies cough or shortness of breath [] Cardiovascular: No additional information not addressed in HPI [] GI: Denies abdominal pain, nausea, vomiting, bloody stools or diarrhea [] : Denies dysuria or hematuria [] Musculoskeletal: Denies back pain or joint pain [] Integument: Bruising and bleeding to right lower quadrant of abdomen [] Allergies Allergies Allergies Coded Allergies Type Severity Reaction Last Updated Verified hydrocodone Allergy Intermediate 08/13/16 Yes sweet potato Adverse Reaction Mild Nausea and Vomiting 08/13/16 Yes Physical Exam Physical Exam Constitutional: Well developed, well nourished, no acute distress, non-toxic appearance. [] HENT: Normocephalic, atraumatic, bilateral external ears normal, oropharynx moist, no oral exudates, nose normal. [] Eyes: PERRLA, EOMI, conjunctiva normal, no discharge. [] Neck: Normal range of motion, no tenderness, supple, no stridor. [] Cardiovascular:Heart rate regular rhythm, no murmur [] Lungs & Thorax: Bilateral breath sounds clear to auscultation [] Abdomen: Bowel sounds normal, soft, positive tenderness palpation over right lower quadrant with ecchymotic bruising approximate 5 cm in diameter secondary to subcutaneous Lovenox injections no active bleeding seen at this time, no masses, no pulsatile masses. [] Skin: Warm, dry, no erythema, no rash. [] Back: No tenderness, no CVA tenderness. [] Extremities: No tenderness, no cyanosis, no clubbing, ROM intact, no edema. [] Neurologic: Alert and oriented X 3, normal motor function, normal sensory function, no focal deficits noted. [] Psychologic: Affect normal, judgement normal, mood normal. [] Current Patient Data Vital Signs Vital Signs Date Time Temp Pulse Resp B/P (MAP) Pulse Ox O2 Delivery O2 Flow Rate FiO2 11/28/16 18:37 98.4 98 17 156/69 (98) 96 Room Air 98.4 Lab Values Laboratory Tests Test 11/28/16 19:24 POC Hemoglobin 11.2 g/dL (14-18) L POC Hematocrit 33 % (37-52) L POC Sodium 139 mmol/L (135-145) POC Potassium 4.1 mmol/L (3.5-5.0) POC Chloride 101 mmol/L (98-110) POC Total CO2 24 mmol/L (23-32) Anion Gap 20 mmol/L (6-14) H POC Blood Urea Nitrogen 10 mg/dL (8-26) POC Creatinine 0.7 mg/dL (0.5-1.4) Glucose Level 130 mg/dL (70-99) H POC Ionized Calcium ([place]) 1.14 mmol/L (1.13-1.32) Laboratory Tests 11/28/16 19:24 EKG EKG [] Radiology/Procedures Radiology/Procedures [] Course & Med Decision Making Course & Med Decision Making Pertinent Labs and Imaging studies reviewed. (See chart for details) [] Dragon Disclaimer Dragon Disclaimer This electronic medical record was generated, in whole or in part, using a voice recognition dictation system. Departure Departure Impression: Primary Impression: Hematoma of abdominal wall Disposition: HOME, SELF-CARE Condition: IMPROVED Referrals: UNKNOWN PCP NAME (PCP) Patient Instructions: Bleeding Time Additional Instructions: Please follow-up with her family doctor in one to 2 days, please apply pressure after giving himself subcutaneous Lovenox shot Problem Qualifiers Primary Impression: Hematoma of abdominal wall Encounter type: initial encounter Qualified Codes: S30.1XXA - Contusion of abdominal wall, initial encounter KAE TRINIDAD DO November 28, 2016 18:39
[2016-11-28 19:31] LABS: POTASSIUM ISTAT 4.1 mmol/L (3.5-5.0)
== END 2016-11-28 20:26 | disposition home or self-care (01) ==
LOC: ER 19:39
DX: S30.1XXA Contusion of abdominal wall, initial encounter (principal); F41.9 Anxiety disorder, unspecified; J44.9 Chronic obstructive pulmonary disease, unspecified; E11.9 Type 2 diabetes mellitus without complications; I10 Essential (primary) hypertension; F10.10 Alcohol abuse, uncomplicated; Z88.5 Allergy status to narcotic agent; Z91.018 Allergy to other foods; X58.XXXA Exposure to other specified factors, initial encounter; Y93.89 Activity, other specified; Y92.89 Other specified places as the place of occurrence of the external cause; Y99.8 Other external cause status
CPT/HCPCS: 80047; 99283

== ENCOUNTER 2017-01-03 16:04 | Inpatient (IN) | payer OTHER ==
[~2017-01-03] VITALS: Ht 170.2 cm; Wt 129.7 kg
[2017-01-03] MEDS ORDERED: ALBUTEROL SULFATE 2.5 MG/3 ML NEBU. ONE (16:12)
[2017-01-03] MEDS ORDERED: IPRATRPIUM/ALBUTEROL 0.5/2.5MG 3 ML NEBU. ONE (16:12)
[2017-01-03] MEDS ORDERED: ALBUTEROL SULFATE 2.5 MG/3 ML NEBU. CONT NEB ONE (16:15)
[2017-01-03] MEDS ORDERED: IPRATRPIUM/ALBUTEROL 0.5/2.5MG 3 ML NEBU. NEB ONE (16:15)
[2017-01-03] MEDS ORDERED: methylPREDNISolone SOD SUCC PF 125 MG/2 ML VIAL. IV ONE (16:15)
[2017-01-03 16:36] LABS: BASO # 0.1 x10^3/uL (0.0-0.2); BASO % 1 % (0-3); EOS % 2 % (0-3); HEMATOCRIT 31.2 % (39.0-53.0); HEMOGLOBIN 9.5 g/dL (13.0-17.5); LYMPH # 3.8 x10^3/uL (1.0-4.8); LYMPH % 29 % (24-48); MEAN CORPUSCULAR HEMOGLOBIN 22 pg (25-35); MEAN CORPUSCULAR HGB CONC 31 g/dL (31-37); MEAN CORPUSCULAR VOLUME 71 fL (79-100); MONO % 5 % (0-9); NEUT % 63 % (31-73); PLATELET COUNT 262 x10^3/uL (140-400); RED BLOOD COUNT 4.38 x10^6/uL (4.30-5.70); RED CELL DISTRIBUTION WIDTH 24.1 % (11.5-14.5); WHITE BLOOD COUNT 13.1 x10^3/uL (4.0-11.0)
[2017-01-03 16:40] LABS: CALCIUM 8.9 mg/dL (8.5-10.1); CREATININE 1.2 mg/dL (0.7-1.3); POTASSIUM 4.1 mmol/L (3.5-5.1)
[2017-01-03 16:45] LABS: ALBUMIN 3.1 g/dL (3.4-5.0); ALBUMIN/GLOBULIN RATIO 0.8 (1.0-1.7); TOTAL BILIRUBIN 0.2 mg/dL (0.2-1.0); TOTAL PROTEIN 6.9 g/dL (6.4-8.2)
--- NOTE | 2017-01-03 16:48 | PHYS DOC ---
Past Medical History Past Medical History: Anxiety, COPD, Diabetes-Type II, Hypertension Past Surgical History: Other Additional Past Surgical Histo: leg sx, hernia Alcohol Use: Rarely Drug Use: None Adult General Chief Complaint Chief Complaint: SHORTNESS OF BREATH HPI HPI Patient is a 61 year old male brought to the ED by ambulance with the complaint of shortness of air. The patient does have a history of COPD and he uses CPAP at night. He also takes breathing treatments. The patient took a nebulizer treatment earlier today without relief. He is staying at the [facility]. He denies chest pain, denies swelling, denies fever or chills. EMS gave the patient to neb treatments in route. Review of Systems Review of Systems Constitutional: Denies fever or chills [] Eyes: Denies change in visual acuity, redness, or eye pain [] HENT: Denies nasal congestion or sore throat [] Respiratory: As in history of present illness Cardiovascular: As in history of present illness GI: Denies abdominal pain, nausea, vomiting, bloody stools or diarrhea [] : Denies dysuria or hematuria [] Musculoskeletal: Denies back pain or joint pain [] Integument: Denies rash or skin lesions [] Neurologic: Denies headache, focal weakness or sensory changes [] Current Medications Current Medications Current Medications Medications (Trade) Dose Ordered Sig/Neida Start Time Stop Time Status Last Admin Dose Admin Albuterol Sulfate (Ventolin Neb Soln) 2.5 mg STK-MED ONCE 01/03/17 16:12 01/03/17 16:13 DC Albuterol/ Ipratropium (Duoneb) 3 ml RTQID 01/03/17 20:00 01/04/17 19:59 Methylprednisolone Sodium Succinate (SOLU-Medrol 125MG VIAL) 125 mg 1X ONCE 01/03/17 16:15 01/03/17 16:16 DC 01/03/17 16:45 125 MG Allergies Allergies Allergies Coded Allergies Type Severity Reaction Last Updated Verified hydrocodone Allergy Intermediate 08/13/16 Yes sweet potato Adverse Reaction Mild Nausea and Vomiting 08/13/16 Yes Physical Exam Physical Exam Constitutional: Obese, alert, mentating normally, dyspneic, O2 sat 100% on O2 by facemask HENT: Normocephalic, atraumatic, bilateral external ears normal, nose normal. [ ] Eyes: conjunctiva normal, no discharge. [] Neck: Normal range of motion, no stridor. [] Cardiovascular:Heart rate regular rhythm, tachycardic, no murmur [] Lungs & Thorax: Decreased air movement throughout, prolonged expiratory phase, expiratory wheezes throughout Abdomen: Abdomen obese, soft, no masses, nontender Skin: Warm, lightly diaphoretic, no erythema, no rash. [] Extremities: No tenderness, no cyanosis, no clubbing, ROM intact, no edema. [] Neurologic: Alert and oriented X 3, normal motor function, normal sensory function, no focal deficits noted. [] Current Patient Data Vital Signs Vital Signs Date Time Temp Pulse Resp B/P (MAP) Pulse Ox O2 Delivery O2 Flow Rate FiO2 01/03/17 16:19 100 Nasal Cannula 4.0 01/03/17 16:05 98.2 107 36 173/75 (107) 98.2 Lab Values Laboratory Tests Test 01/03/17 16:12 White Blood Count 13.1 x10^3/uL (4.0-11.0) H Red Blood Count 4.38 x10^6/uL (4.30-5.70) Hemoglobin 9.5 g/dL (13.0-17.5) L Hematocrit 31.2 % (39.0-53.0) L Mean Corpuscular Volume 71 fL (79-100) L Mean Corpuscular Hemoglobin 22 pg (25-35) L Mean Corpuscular Hemoglobin Concent 31 g/dL (31-37) Red Cell Distribution Width 24.1 % (11.5-14.5) H Platelet Count 262 x10^3/uL (140-400) Neutrophils (%) (Auto) 63 % (31-73) Lymphocytes (%) (Auto) 29 % (24-48) Monocytes (%) (Auto) 5 % (0-9) Eosinophils (%) (Auto) 2 % (0-3) Basophils (%) (Auto) 1 % (0-3) Neutrophils # (Auto) 8.3 x10^3uL (1.8-7.7) H Lymphocytes # (Auto) 3.8 x10^3/uL (1.0-4.8) Monocytes # (Auto) 0.7 x10^3/uL (0.0-1.1) Eosinophils # (Auto) 0.2 x10^3/uL (0.0-0.7) Basophils # (Auto) 0.1 x10^3/uL (0.0-0.2) Segmented Neutrophils % 59 % (35-66) Band Neutrophils % 2 % (0-9) Lymphocytes % 34 % (24-48) Eosinophils % 2 % (0-5) Basophils % 3 % (0-3) Toxic Granulation Mod Platelet Estimate Adequate (ADEQUATE) Polychromasia Slight Hypochromasia Slight Anisocytosis Mod Microcytosis Marked Sodium Level 140 mmol/L (136-145) Potassium Level 4.1 mmol/L (3.5-5.1) Chloride Level 103 mmol/L (98-107) Carbon Dioxide Level 29 mmol/L (21-32) Anion Gap 8 (6-14) Blood Urea Nitrogen 11 mg/dL (8-26) Creatinine 1.2 mg/dL (0.7-1.3) Estimated GFR (Cockcroft-Gault) 62.0 BUN/Creatinine Ratio 9 (6-20) Glucose Level 153 mg/dL (70-99) H Calcium Level 8.9 mg/dL (8.5-10.1) Total Bilirubin 0.2 mg/dL (0.2-1.0) Aspartate Amino Transferase (AST) 25 U/L (15-37) Alanine Aminotransferase (ALT) 26 U/L (16-63) Alkaline Phosphatase 101 U/L (46-116) Creatine Kinase 115 U/L (39-308) Creatine Kinase MB (Mass) 2.5 ng/mL (0.0-3.6) Creatine Kinase MB Relative Index 2.2 % (0-4) Troponin I Quantitative < 0.017 ng/mL (0.000-0.055) PM-Uhi-L-Type Natriuretic Peptide 533 pg/mL (0-124) H Total Protein 6.9 g/dL (6.4-8.2) Albumin 3.1 g/dL (3.4-5.0) L Albumin/Globulin Ratio 0.8 (1.0-1.7) L Laboratory Tests 01/03/17 16:12 Laboratory Tests 01/03/17 16:12 EKG EKG 12-lead EKG read by me. Sinus tachycardia. Heart rate 106. There are no acute ST or T wave changes indicative of ischemia or infarction. No STEMI. 1609 [] Radiology/Procedures Radiology/Procedures One view portable chest x-ray read by me. Heart size is normal. Lung ceron are clear. No acute abnormality. [] Course & Med Decision Making Course & Med Decision Making Pertinent Labs and Imaging studies reviewed. (See chart for details) 61-year-old man with COPD presents by EMS with dyspnea. The patient has had 3 DuoNeb treatments recently, 2 by EMS. EMS reports an O2 sat of 88% on their arrival. He is still quite dyspneic. I ordered a continuous nebulized albuterol treatment by face mask with oxygen supplementation. I discussed the case with the respiratory therapist to was able to review the patient's chart and said the patient does not have a history of being a CO2 retainer, therefore I held off on ABGs. Chest x-ray clear. Labs remarkable for anemia but when I reviewed the patient's chart that is chronic for him. His BNP is slightly elevated but that also was the case last time, he does not have any peripheral edema and his chest x-ray does not look like pulmonary edema. He was given IV Solu-Medrol. He did improve with an hour-long DuoNeb in the ED. I discussed the case with Dr. Brand, hospitalist. He will admit the patient. I wrote bridge orders. [] Dragon Disclaimer Dragon Disclaimer This electronic medical record was generated, in whole or in part, using a voice recognition dictation system. Departure Departure Impression: Primary Impression: COPD exacerbation Additional Impression: Hypoxia Disposition: ADMITTED INPATIENT Admitting Physician: Cl Brand Condition: STABLE Referrals: UNKNOWN PCP NAME (PCP) Problem Qualifiers PHIL PEOPLES MD Jan 03, 2017 16:48
[2017-01-03 16:50] LABS: % BASOS 3 % (0-3); % EOS 2 % (0-5); CKMB MASS 2.5 ng/mL (0.0-3.6)
[2017-01-03 16:52] LABS: ANISOCYTOSIS MOD; HYPOCHROMIA SLIGHT; MICROCYTOSIS MARKED; PLT ESTIMATE ADEQUATE (ADEQUATE); POLYCHROMASIA SLIGHT; TOXIC GRANULATION MOD
--- NOTE | 2017-01-03 16:58 | RAD ---
EXAM: Chest one view. HISTORY: Shortness of breath. COMPARISON: 11/16/2016. FINDINGS: A frontal view of the chest is obtained. Hyperinflation suggests chronic obstructive pulmonary disease. There are no confluent infiltrates. There is no pneumothorax or pleural effusion. The heart is not enlarged. IMPRESSION: 1. Hyperinflation suggests chronic obstructive pulmonary disease. No confluent infiltrates.
[2017-01-03] MEDS ORDERED: ALBUTEROL SULFATE 2.5 MG/3 ML NEBU. NEB PRN ×2 (18:15→21:15)
[2017-01-03] MEDS ORDERED: BUDE10.2 IH (18:29)
[2017-01-03] MEDS ORDERED: CYCL10TA2 PO (18:29)
[2017-01-03] MEDS ORDERED: IPRA3AMP NEB (18:29)
[2017-01-03] MEDS ORDERED: FOLI1TAB16 PO (18:31)
[2017-01-03] MEDS ORDERED: WARF5TAB7 PO ×3 (18:37→21:47)
[2017-01-03] MEDS ORDERED: GABA-586 PO (18:37)
[2017-01-03] MEDS ORDERED: PRED5TAB PO (18:37)
[2017-01-03] MEDS ORDERED: MULT1TAB52 PO (18:37)
[2017-01-03] MEDS ORDERED: TRAM50TA PO (18:37)
[2017-01-03] MEDS ORDERED: PRAV40TA2 PO (18:37)
[2017-01-03] MEDS ORDERED: METO100T2 PO (18:37)
[2017-01-03] MEDS ORDERED: OMEP20TA8 PO (18:37)
[2017-01-03] MEDS ORDERED: THIA100T8 PO (18:37)
[2017-01-03 18:52] LABS: BASE EXCESS COOX 1 mmol/L (-3-3); CARBON MONOXIDE 1.5 % (0.0-1.9); FIO2 COOX 32; HCO3 COOX 26 mmol/L (21-28); METHEMOGLOBIN 0.3 % (0.0-1.9); OXYHEMOGLOBIN 86.1 %; PCO2 COOX 44 mmHg (35-46); PO2 COOX 56 mmHg (65-108); SAT O2 COOX 88 % (92-99); TOTAL HEMOGLOBIN 10.5 g/dL
[2017-01-03 18:53] VITALS: BP 168/72
[2017-01-03 19:08] VITALS: BP 168/72
--- NOTE | 2017-01-03 19:31 | ACF ---
Admission Forms Criteria COPD Clinical Indications for Admission to Inpatient Care (Place 'X' for any and all applicable criteria): Admission is indicated for ANY ONE of the following (1)(2)(3): [X]I. Acute exacerbation by high-risk comorbidity (e.g., pneumonia, dysrhythmia, heart failure, pleural effusion, pneumothorax) or severe underlying COPD (e.g., steroid dependent) [ ]II. Inpatient admission required rather than observation care (see Chronic Obstructive Pulmonary Disease: Observation Care) because of ANY ONE of the following: [ ]a) New or pre-existing signs or symptoms of COPD (eg, dyspnea or Tachypnea at rest or with minimal activity) that persist despite outpatient and observation care treatment [ ]b) New-onset hypoxemia (room air SaO2 less than 90%, PO2 less than 60 mm Hg (8.0 kPa)) that persists despite outpatient and observation care treatment [ ]c) Worsening of pre-existing hypoxemia (eg, new or increased requirement for supplemental oxygen to maintain oxygenation at baseline level) that persists despite outpatient and observation care treatment, with oxygen treatment needs performable only in acute inpatient setting [ ]d) Hypercarbia (PCO2 greater than 40 mm Hg (5.3 kPa))-induced respiratory acidosis (pH less than 7.35) that persists despite outpatient and observation care treatment [ ]e) Supplemental oxygen or respiratory treatments for over 24 hours that are performable only in acute inpatient setting [ ]f) Chest tube placement with active evacuation (e.g., suction, drainage) (5) [ ]g) Other condition, treatment or monitoring requiring inpatient admission [ ]III. Planned invasive surgical or diagnostic procedures requiring acute- care hospitalization [ ]IV. Acute respiratory failure (e.g., uncompensated hypercarbia, severe hypoxemia) [ ]V. Severe comorbid condition (e.g., severe steroid myopathy, acute vertebral fracture) that has acutely worsened pulmonary function [ ]. Confusion state, lethargy, obtundation, stupor or coma Extended stay beyond goal length of stay may be needed for (31)(32): [ ]a ) Respiratory Failure. [ ]b) Severe or persisting hypoxemia or hypercarbia [ ]c) Severe or persistent dyspnea [ ]d) Comorbidities (e.g. chronic heart failure, atrial fibrillation with rapid response, pneumonia) [ ]e) Malnutrition The original [facility] content created by [facility] has been revised. The portions of the content which have been revised are identified through the use of italic text or in bold, and [facility] has neither reviewed nor approved the modified material. All other unmodified content is copyright [facility]. Please see references footnoted in the original [facility] edition 2016 Admission Criteria Met?: Yes YOEL MORTON Jan 03, 2017 19:31
[2017-01-03] MEDS ORDERED: IPRATRPIUM/ALBUTEROL 0.5/2.5MG 3 ML NEBU. NEB SCH (20:00)
[2017-01-03] MEDS ORDERED: MORPHINE SULFATE 2 MG/ML DISP.SYRIN. IV PRN (21:15)
[2017-01-03] MEDS ORDERED: traMADol 50 MG TABLET PO PRN (21:30)
[2017-01-03] MEDS ORDERED: warfarin sodium PO (21:42)
[2017-01-03 22:35] LABS: INR 1.9 (0.8-1.1); PROTHROMBIN TIME PATIENT 20.9 SEC (11.7-14.0)
[2017-01-03] MEDS: CYCLOBENZAPRINE 10 MG TABLET. PO SCH (22:52)
[2017-01-03] MEDS: ATORVASTATIN CALCIUM 10 MG TABLET. PO SCH (22:52)
[2017-01-03] MEDS: GABAPENTIN 300 MG CAPSULE. PO SCH (22:52)
[2017-01-03] MEDS: methylPREDNISolone SOD SUCC PF 40 MG/ML VIAL. IV SCH (22:53)
[2017-01-03] MEDS ORDERED: WARFARIN 5 MG TABLET. PO ONE (23:00)
[2017-01-03 23:54] VITALS: BP 140/66
[2017-01-04] MEDS: methylPREDNISolone SOD SUCC PF 40 MG/ML VIAL. IV SCH ×3 (05:56→21:11)
[2017-01-04 06:09] LABS: PROTHROMBIN TIME PATIENT 21.1 SEC (11.7-14.0)
--- NOTE | 2017-01-04 06:15 | EKG ---
[facility] [address] [place] [address] Test Date: 2017-01-03 Test Time: 16:09:16 Pat Name: EMILY PERDOMO Department: Room: [facility] Gender: M Field Service Coordinator: : 1955 Requested By: PHIL PEOPLES Order Number: [id number] Reading MD: Samuel Carvalho Measurements Intervals [place] Rate: 106 P: 2 NV: 130 QRS: 72 QRSD: 96 T: 76 QT: 352 QTc: 469 Interpretive Statements SINUS TACHYCARDIA LEFT ATRIAL ABNORMALITY ABNORMAL ECG RI6.01 Compared to ECG 11/10/2016 20:15:56 Atrial abnormality now present Electronically Signed On 01-04-2017 11:06:39 CDT by Samuel Carvalho
[2017-01-04 07:56] VITALS: BP 125/60
[2017-01-04] MEDS: IPRATRPIUM/ALBUTEROL 0.5/2.5MG 3 ML NEBU. NEB SCH ×4 (08:09→20:31)
[2017-01-04] MEDS: BUDESONIDE 0.5 MG/2 ML NEBU. NEB SCH ×2 (08:09→20:31)
[2017-01-04] MEDS: CYCLOBENZAPRINE 10 MG TABLET. PO SCH ×2 (08:38→21:11)
[2017-01-04] MEDS: PANTOPRAZOLE 40 MG TABLET.DR. PO SCH (08:38)
[2017-01-04] MEDS: FOLIC ACID 1 MG TABLET. PO SCH (08:39)
[2017-01-04] MEDS: METOPROLOL TART IMMED RELEASE 50 MG TABLET. PO SCH (08:40)
[2017-01-04] MEDS: MULTIVITAMIN with MINERAL TABLET. PO SCH (08:40)
[2017-01-04] MEDS ORDERED: WARFARIN 5 MG TABLET. PO SCH (09:00)
[2017-01-04 10:53] VITALS: BP 141/75
--- NOTE | 2017-01-04 12:35 | HP ---
ADMIT DATE: CHIEF COMPLAINT: Shortness of breath and cough. HISTORY OF PRESENT ILLNESS: The patient is a pleasant 61-year-old male who lives at the [facility]. Basically, I think he is homeless. He does have COPD. He is also obese, has obstructive sleep apnea. He presented last night with shortness of breath, cough, and wheezing. He is weak. He has associated nausea. While in the ER, he was noted to have respiratory failure has now been placed on steroids, breathing treatments and oxygen. We have consulted Pulmonary Medicine in the medical floor. PAST MEDICAL HISTORY: COPD and obesity; tobacco abuse. ALLERGIES: None. FAMILY HISTORY: Diabetes. SOCIAL HISTORY: Does not drink or take drugs. He smokes. He is trying to quit. He was in [facility]. MEDICATIONS: Reviewed, please refer to the MRAD. REVIEW OF SYSTEMS: GENERAL: No history of weight change, weakness or fevers. SKIN: No bruising, hair changes or rashes. EYES: No blurred, double or loss of vision. NOSE AND THROAT: No history of nosebleeds, hoarseness or sore throat. HEART: No history of palpitations, chest pain or shortness of breath on exertion. LUNGS: He complaints with shortness of breath. GASTROINTESTINAL: Denies changes in appetite, nausea, vomiting, diarrhea or constipation. GENITOURINARY: He complaints he had loose stool. He ____ improving. NEUROLOGIC: Denies history of numbness, tingling, tremor or weakness. PSYCHIATRIC: No history of panic, anxiety or depression. ENDOCRINE: No history of heat or cold intolerance, polyuria or polydipsia. EXTREMITIES: Denies muscle weakness, joint pain, pain on walking or stiffness. PHYSICAL EXAMINATION: VITAL SIGNS: Temperature afebrile, pulse 68, respirations 18, and blood pressure 142/90. GENERAL: He is sleeping. He is awake. He is ____ He is pleasant. HEART: Normal S1, S2. LUNGS: Diminished with wheezing. ABDOMEN: Soft, obese. EXTREMITIES: 2+ edema. SKIN: No rashes. PSYCHIATRIC: He is depressed. VASCULAR: Good capillary refill. ENDOCRINE: No thyromegaly. LYMPHATICS: No cervical nodes. HEMATOPOIETIC: No bruising. LABORATORY DATA: Reviewed. IMAGING STUDIES: Chest x-ray shows COPD. ASSESSMENT AND PLAN: 1. Chronic obstructive pulmonary disease exacerbation. The patient has been admitted. We will treat with intravenous steroids, breathing treatments, oxygen and will consult Pulmonary Medicine. Continue home medicines. PROGNOSIS: Guarded. KIRAN DE LA GARZA DO DR: NATTY/thom JOB#: [id number] / [id number]
--- NOTE | 2017-01-04 15:14 | PDOC ---
PULMONARY PROGRESS NOTES Vitals Vital Signs Date Time Temp Pulse Resp B/P (MAP) Pulse Ox O2 Delivery O2 Flow Rate FiO2 01/04/17 11:47 97 Nasal Cannula 4.0 01/04/17 10:53 97.3 89 20 141/75 (97) 97.3 General: Alert, No acute distress Lungs: Clear Cardiovascular: S1, S2 Abdomen: Soft, Non-tender Extremities: Other Labs Laboratory Tests Test 01/03/17 16:06 01/03/17 16:12 01/03/17 23:00 01/04/17 05:30 O2 Saturation 88 % (92-99) Arterial Blood pH 7.40 (7.35-7.45) Arterial Blood pCO2 at Patient Temp 44 mmHg (35-46) Arterial Blood pO2 at Patient Temp 56 mmHg (65-108) Arterial Blood HCO3 26 mmol/L (21-28) Arterial Blood Base Excess 1 mmol/L (-3-3) Oxyhemoglobin 86.1 % Methemoglobin 0.3 % (0.0-1.9) Carbon Monoxide, Quantitative 1.5 % (0.0-1.9) FiO2 32 White Blood Count 13.1 x10^3/uL (4.0-11.0) Red Blood Count 4.38 x10^6/uL (4.30-5.70) Hemoglobin 9.5 g/dL (13.0-17.5) Hematocrit 31.2 % (39.0-53.0) Mean Corpuscular Volume 71 fL (79-100) Mean Corpuscular Hemoglobin 22 pg (25-35) Mean Corpuscular Hemoglobin Concent 31 g/dL (31-37) Red Cell Distribution Width 24.1 % (11.5-14.5) Platelet Count 262 x10^3/uL (140-400) Neutrophils (%) (Auto) 63 % (31-73) Lymphocytes (%) (Auto) 29 % (24-48) Monocytes (%) (Auto) 5 % (0-9) Eosinophils (%) (Auto) 2 % (0-3) Basophils (%) (Auto) 1 % (0-3) Neutrophils # (Auto) 8.3 x10^3uL (1.8-7.7) Lymphocytes # (Auto) 3.8 x10^3/uL (1.0-4.8) Monocytes # (Auto) 0.7 x10^3/uL (0.0-1.1) Eosinophils # (Auto) 0.2 x10^3/uL (0.0-0.7) Basophils # (Auto) 0.1 x10^3/uL (0.0-0.2) Segmented Neutrophils % 59 % (35-66) Band Neutrophils % 2 % (0-9) Lymphocytes % 34 % (24-48) Eosinophils % 2 % (0-5) Basophils % 3 % (0-3) Toxic Granulation Mod Platelet Estimate Adequate (ADEQUATE) Polychromasia Slight Hypochromasia Slight Anisocytosis Mod Microcytosis Marked Prothrombin Time 20.9 SEC (11.7-14.0) 21.1 SEC (11.7-14.0) Prothromb Time International Ratio 1.9 (0.8-1.1) 2.0 (0.8-1.1) Sodium Level 140 mmol/L (136-145) Potassium Level 4.1 mmol/L (3.5-5.1) Chloride Level 103 mmol/L (98-107) Carbon Dioxide Level 29 mmol/L (21-32) Anion Gap 8 (6-14) Blood Urea Nitrogen 11 mg/dL (8-26) Creatinine 1.2 mg/dL (0.7-1.3) Estimated GFR (Cockcroft-Gault) 62.0 BUN/Creatinine Ratio 9 (6-20) Glucose Level 153 mg/dL (70-99) Calcium Level 8.9 mg/dL (8.5-10.1) Total Bilirubin 0.2 mg/dL (0.2-1.0) Aspartate Amino Transf (AST/SGOT) 25 U/L (15-37) Alanine Aminotransferase (ALT/SGPT) 26 U/L (16-63) Alkaline Phosphatase 101 U/L (46-116) Creatine Kinase 115 U/L (39-308) Creatine Kinase MB (Mass) 2.5 ng/mL (0.0-3.6) Creatine Kinase MB Relative Index 2.2 % (0-4) Troponin I Quantitative < 0.017 ng/mL (0.000-0.055) PV-Eke-L-Type Natriuretic Peptide 533 pg/mL (0-124) Total Protein 6.9 g/dL (6.4-8.2) Albumin 3.1 g/dL (3.4-5.0) Albumin/Globulin Ratio 0.8 (1.0-1.7) Nasal Screen MRSA (PCR) Negative (Negative) Laboratory Tests Test 01/03/17 16:06 01/03/17 16:12 01/03/17 23:00 01/04/17 05:30 O2 Saturation 88 % (92-99) Arterial Blood pH 7.40 (7.35-7.45) Arterial Blood pCO2 at Patient Temp 44 mmHg (35-46) Arterial Blood pO2 at Patient Temp 56 mmHg (65-108) Arterial Blood HCO3 26 mmol/L (21-28) Arterial Blood Base Excess 1 mmol/L (-3-3) Oxyhemoglobin 86.1 % Methemoglobin 0.3 % (0.0-1.9) Carbon Monoxide, Quantitative 1.5 % (0.0-1.9) FiO2 32 White Blood Count 13.1 x10^3/uL (4.0-11.0) Red Blood Count 4.38 x10^6/uL (4.30-5.70) Hemoglobin 9.5 g/dL (13.0-17.5) Hematocrit 31.2 % (39.0-53.0) Mean Corpuscular Volume 71 fL (79-100) Mean Corpuscular Hemoglobin 22 pg (25-35) Mean Corpuscular Hemoglobin Concent 31 g/dL (31-37) Red Cell Distribution Width 24.1 % (11.5-14.5) Platelet Count 262 x10^3/uL (140-400) Neutrophils (%) (Auto) 63 % (31-73) Lymphocytes (%) (Auto) 29 % (24-48) Monocytes (%) (Auto) 5 % (0-9) Eosinophils (%) (Auto) 2 % (0-3) Basophils (%) (Auto) 1 % (0-3) Neutrophils # (Auto) 8.3 x10^3uL (1.8-7.7) Lymphocytes # (Auto) 3.8 x10^3/uL (1.0-4.8) Monocytes # (Auto) 0.7 x10^3/uL (0.0-1.1) Eosinophils # (Auto) 0.2 x10^3/uL (0.0-0.7) Basophils # (Auto) 0.1 x10^3/uL (0.0-0.2) Segmented Neutrophils % 59 % (35-66) Band Neutrophils % 2 % (0-9) Lymphocytes % 34 % (24-48) Eosinophils % 2 % (0-5) Basophils % 3 % (0-3) Toxic Granulation Mod Platelet Estimate Adequate (ADEQUATE) Polychromasia Slight Hypochromasia Slight Anisocytosis Mod Microcytosis Marked Prothrombin Time 20.9 SEC (11.7-14.0) 21.1 SEC (11.7-14.0) Prothromb Time International Ratio 1.9 (0.8-1.1) 2.0 (0.8-1.1) Sodium Level 140 mmol/L (136-145) Potassium Level 4.1 mmol/L (3.5-5.1) Chloride Level 103 mmol/L (98-107) Carbon Dioxide Level 29 mmol/L (21-32) Anion Gap 8 (6-14) Blood Urea Nitrogen 11 mg/dL (8-26) Creatinine 1.2 mg/dL (0.7-1.3) Estimated GFR (Cockcroft-Gault) 62.0 BUN/Creatinine Ratio 9 (6-20) Glucose Level 153 mg/dL (70-99) Calcium Level 8.9 mg/dL (8.5-10.1) Total Bilirubin 0.2 mg/dL (0.2-1.0) Aspartate Amino Transf (AST/SGOT) 25 U/L (15-37) Alanine Aminotransferase (ALT/SGPT) 26 U/L (16-63) Alkaline Phosphatase 101 U/L (46-116) Creatine Kinase 115 U/L (39-308) Creatine Kinase MB (Mass) 2.5 ng/mL (0.0-3.6) Creatine Kinase MB Relative Index 2.2 % (0-4) Troponin I Quantitative < 0.017 ng/mL (0.000-0.055) MW-Tvx-M-Type Natriuretic Peptide 533 pg/mL (0-124) Total Protein 6.9 g/dL (6.4-8.2) Albumin 3.1 g/dL (3.4-5.0) Albumin/Globulin Ratio 0.8 (1.0-1.7) Nasal Screen MRSA (PCR) Negative (Negative) Medications Active Scripts Medications Dose Route/Sig Max Daily Dose Days Date Category Warfarin Sodium 5 Mg Tablet 1 Tab PO DAILY 01/03/17 Reported Tramadol Hcl 50 Mg Tablet 50 Mg PO BID PRN 01/03/17 Reported Thiamine Hcl 100 Mg Tablet 100 Mg PO 01/03/17 Reported Pravastatin Sodium 40 Mg Tablet 20 Mg PO BID 01/03/17 Reported Omeprazole 20 Mg Tablet.dr 1 Tab PO DAILY 01/03/17 Reported Multivitamins (Multivitamin) 1 Each Tablet 1 Tab PO DAILY 01/03/17 Reported Metoprolol Tartrate 100 Mg Tablet 50 Mg PO DAILY 01/03/17 Reported Gabapentin 300 Mg Capsule 300 Mg PO HS 01/03/17 Reported Folic Acid 1 Mg Tablet 1 Tab PO DAILY 01/03/17 Reported Cyclobenzaprine Hcl 10 Mg Tablet 10 Mg PO BID 01/03/17 Reported Symbicort 160-4.5 Mcg Inhaler (Budesonide/Formoterol Fumarate) 10.2 Gm Hfa.aer.ad 2 Puff IH BID 01/03/17 Reported Duoneb 0.5-3(2.5) Mg/3 Ml (Albuterol/Ipratropium) 3 Ml Ampul.neb 3 Ml NEB QID 01/03/17 Reported Impression . FULL NOTE DICTATED ACUTE RESP FAILURE SEC TO AECOPD AMBER AVERY MD Jan 04, 2017 15:14
[2017-01-04 15:25] VITALS: BP 129/65
[2017-01-04] MEDS ORDERED: WARFARIN 2.5 MG TABLET. PO ONE (16:00)
[2017-01-04 19:05] VITALS: BP 135/65
[2017-01-04] MEDS: ATORVASTATIN CALCIUM 10 MG TABLET. PO SCH (21:11)
[2017-01-04] MEDS: GABAPENTIN 300 MG CAPSULE. PO SCH (21:11)
[2017-01-04 23:10] VITALS: BP 125/61
[2017-01-05 03:10] VITALS: BP 131/59
[2017-01-05] MEDS: methylPREDNISolone SOD SUCC PF 40 MG/ML VIAL. IV SCH ×2 (05:41→13:29)
[2017-01-05 07:00] VITALS: BP 138/73
[2017-01-05] MEDS: PANTOPRAZOLE 40 MG TABLET.DR. PO SCH (07:59)
[2017-01-05] MEDS: MULTIVITAMIN with MINERAL TABLET. PO SCH (08:00)
[2017-01-05] MEDS: FOLIC ACID 1 MG TABLET. PO SCH (08:00)
[2017-01-05] MEDS: CYCLOBENZAPRINE 10 MG TABLET. PO SCH (08:00)
[2017-01-05] MEDS: METOPROLOL TART IMMED RELEASE 50 MG TABLET. PO SCH (08:01)
[2017-01-05] MEDS: BUDESONIDE 0.5 MG/2 ML NEBU. NEB SCH (08:05)
[2017-01-05] MEDS: IPRATRPIUM/ALBUTEROL 0.5/2.5MG 3 ML NEBU. NEB SCH ×2 (08:05→12:39)
--- NOTE | 2017-01-05 08:59 | PDOC ---
PULMONARY PROGRESS NOTES Vitals Vital Signs Date Time Temp Pulse Resp B/P (MAP) Pulse Ox O2 Delivery O2 Flow Rate FiO2 01/05/17 08:10 98 Nasal Cannula 4.0 01/05/17 08:01 81 138/73 01/05/17 07:00 98.0 18 98.0 General: Alert, No acute distress Lungs: Clear Cardiovascular: S1, S2 Abdomen: Soft, Non-tender Extremities: Other Labs Laboratory Tests Test 01/03/17 16:06 01/03/17 16:12 01/03/17 23:00 01/04/17 05:30 O2 Saturation 88 % (92-99) Arterial Blood pH 7.40 (7.35-7.45) Arterial Blood pCO2 at Patient Temp 44 mmHg (35-46) Arterial Blood pO2 at Patient Temp 56 mmHg (65-108) Arterial Blood HCO3 26 mmol/L (21-28) Arterial Blood Base Excess 1 mmol/L (-3-3) Oxyhemoglobin 86.1 % Methemoglobin 0.3 % (0.0-1.9) Carbon Monoxide, Quantitative 1.5 % (0.0-1.9) FiO2 32 White Blood Count 13.1 x10^3/uL (4.0-11.0) Red Blood Count 4.38 x10^6/uL (4.30-5.70) Hemoglobin 9.5 g/dL (13.0-17.5) Hematocrit 31.2 % (39.0-53.0) Mean Corpuscular Volume 71 fL (79-100) Mean Corpuscular Hemoglobin 22 pg (25-35) Mean Corpuscular Hemoglobin Concent 31 g/dL (31-37) Red Cell Distribution Width 24.1 % (11.5-14.5) Platelet Count 262 x10^3/uL (140-400) Neutrophils (%) (Auto) 63 % (31-73) Lymphocytes (%) (Auto) 29 % (24-48) Monocytes (%) (Auto) 5 % (0-9) Eosinophils (%) (Auto) 2 % (0-3) Basophils (%) (Auto) 1 % (0-3) Neutrophils # (Auto) 8.3 x10^3uL (1.8-7.7) Lymphocytes # (Auto) 3.8 x10^3/uL (1.0-4.8) Monocytes # (Auto) 0.7 x10^3/uL (0.0-1.1) Eosinophils # (Auto) 0.2 x10^3/uL (0.0-0.7) Basophils # (Auto) 0.1 x10^3/uL (0.0-0.2) Segmented Neutrophils % 59 % (35-66) Band Neutrophils % 2 % (0-9) Lymphocytes % 34 % (24-48) Eosinophils % 2 % (0-5) Basophils % 3 % (0-3) Toxic Granulation Mod Platelet Estimate Adequate (ADEQUATE) Polychromasia Slight Hypochromasia Slight Anisocytosis Mod Microcytosis Marked Prothrombin Time 20.9 SEC (11.7-14.0) 21.1 SEC (11.7-14.0) Prothromb Time International Ratio 1.9 (0.8-1.1) 2.0 (0.8-1.1) Sodium Level 140 mmol/L (136-145) Potassium Level 4.1 mmol/L (3.5-5.1) Chloride Level 103 mmol/L (98-107) Carbon Dioxide Level 29 mmol/L (21-32) Anion Gap 8 (6-14) Blood Urea Nitrogen 11 mg/dL (8-26) Creatinine 1.2 mg/dL (0.7-1.3) Estimated GFR (Cockcroft-Gault) 62.0 BUN/Creatinine Ratio 9 (6-20) Glucose Level 153 mg/dL (70-99) Calcium Level 8.9 mg/dL (8.5-10.1) Total Bilirubin 0.2 mg/dL (0.2-1.0) Aspartate Amino Transf (AST/SGOT) 25 U/L (15-37) Alanine Aminotransferase (ALT/SGPT) 26 U/L (16-63) Alkaline Phosphatase 101 U/L (46-116) Creatine Kinase 115 U/L (39-308) Creatine Kinase MB (Mass) 2.5 ng/mL (0.0-3.6) Creatine Kinase MB Relative Index 2.2 % (0-4) Troponin I Quantitative < 0.017 ng/mL (0.000-0.055) VJ-Jgt-Y-Type Natriuretic Peptide 533 pg/mL (0-124) Total Protein 6.9 g/dL (6.4-8.2) Albumin 3.1 g/dL (3.4-5.0) Albumin/Globulin Ratio 0.8 (1.0-1.7) Nasal Screen MRSA (PCR) Negative (Negative) Medications Active Scripts Medications Dose Route/Sig Max Daily Dose Days Date Category Warfarin Sodium 5 Mg Tablet 1 Tab PO DAILY 01/03/17 Reported Tramadol Hcl 50 Mg Tablet 50 Mg PO BID PRN 01/03/17 Reported Thiamine Hcl 100 Mg Tablet 100 Mg PO 01/03/17 Reported Pravastatin Sodium 40 Mg Tablet 20 Mg PO BID 01/03/17 Reported Omeprazole 20 Mg Tablet.dr 1 Tab PO DAILY 01/03/17 Reported Multivitamins (Multivitamin) 1 Each Tablet 1 Tab PO DAILY 01/03/17 Reported Metoprolol Tartrate 100 Mg Tablet 50 Mg PO DAILY 01/03/17 Reported Gabapentin 300 Mg Capsule 300 Mg PO HS 01/03/17 Reported Folic Acid 1 Mg Tablet 1 Tab PO DAILY 01/03/17 Reported Cyclobenzaprine Hcl 10 Mg Tablet 10 Mg PO BID 01/03/17 Reported Symbicort 160-4.5 Mcg Inhaler (Budesonide/Formoterol Fumarate) 10.2 Gm Hfa.aer.ad 2 Puff IH BID 01/03/17 Reported Duoneb 0.5-3(2.5) Mg/3 Ml (Albuterol/Ipratropium) 3 Ml Ampul.neb 3 Ml NEB QID 01/03/17 Reported Impression . IMPRESSION: 1. Acute exacerbation of chronic obstructive pulmonary disease. 2. Acute respiratory failure secondary to above. 3. Obstructive sleep apnea. 4. Acute nonspecific bronchitis. 5. Tobacco dependence. Plan . PLAN: 1. Concur with current use of CPAP. 2. Steroids. 3. Nebulized treatments. 4. The patient instructed on the importance of discontinuing tobacco use. 5. Continue home medications. I do appreciate the privilege in sharing in patient's care. AMBER AVERY MD Jan 05, 2017 08:59
--- NOTE | 2017-01-05 09:51 | PDOC ---
PROGRESS NOTES Chief Complaint Chief Complaint COPD History of Present Illness History of Present Illness Seen and examined At baseline Will dc Vitals Vitals Vital Signs Date Time Temp Pulse Resp B/P (MAP) Pulse Ox O2 Delivery O2 Flow Rate FiO2 01/05/17 08:10 98 Nasal Cannula 4.0 01/05/17 08:01 81 138/73 01/05/17 07:00 98.0 18 98.0 Physical Exam General: Alert, Oriented X3 Heart: Regular rate, Normal S1 Lungs: Clear Abdomen: Normal bowel sounds, Soft Extremities: No clubbing, No cyanosis Skin: No rashes, No breakdown Assessment and Plan Assessmemt and Plan Problems Medical Problems: (1) COPD exacerbation Status: Acute (2) Hypoxia Status: Acute Plan Discharge See dictation Total time 31 minutes Problems: Comment Review of Relevant I have reviewed the following items iron (where applicable) has been applied. Labs Laboratory Tests Test 01/03/17 16:06 01/03/17 16:12 01/03/17 23:00 01/04/17 05:30 O2 Saturation 88 % (92-99) Arterial Blood pH 7.40 (7.35-7.45) Arterial Blood pCO2 at Patient Temp 44 mmHg (35-46) Arterial Blood pO2 at Patient Temp 56 mmHg (65-108) Arterial Blood HCO3 26 mmol/L (21-28) Arterial Blood Base Excess 1 mmol/L (-3-3) Oxyhemoglobin 86.1 % Methemoglobin 0.3 % (0.0-1.9) Carbon Monoxide, Quantitative 1.5 % (0.0-1.9) FiO2 32 White Blood Count 13.1 x10^3/uL (4.0-11.0) Red Blood Count 4.38 x10^6/uL (4.30-5.70) Hemoglobin 9.5 g/dL (13.0-17.5) Hematocrit 31.2 % (39.0-53.0) Mean Corpuscular Volume 71 fL (79-100) Mean Corpuscular Hemoglobin 22 pg (25-35) Mean Corpuscular Hemoglobin Concent 31 g/dL (31-37) Red Cell Distribution Width 24.1 % (11.5-14.5) Platelet Count 262 x10^3/uL (140-400) Neutrophils (%) (Auto) 63 % (31-73) Lymphocytes (%) (Auto) 29 % (24-48) Monocytes (%) (Auto) 5 % (0-9) Eosinophils (%) (Auto) 2 % (0-3) Basophils (%) (Auto) 1 % (0-3) Neutrophils # (Auto) 8.3 x10^3uL (1.8-7.7) Lymphocytes # (Auto) 3.8 x10^3/uL (1.0-4.8) Monocytes # (Auto) 0.7 x10^3/uL (0.0-1.1) Eosinophils # (Auto) 0.2 x10^3/uL (0.0-0.7) Basophils # (Auto) 0.1 x10^3/uL (0.0-0.2) Segmented Neutrophils % 59 % (35-66) Band Neutrophils % 2 % (0-9) Lymphocytes % 34 % (24-48) Eosinophils % 2 % (0-5) Basophils % 3 % (0-3) Toxic Granulation Mod Platelet Estimate Adequate (ADEQUATE) Polychromasia Slight Hypochromasia Slight Anisocytosis Mod Microcytosis Marked Prothrombin Time 20.9 SEC (11.7-14.0) 21.1 SEC (11.7-14.0) Prothromb Time International Ratio 1.9 (0.8-1.1) 2.0 (0.8-1.1) Sodium Level 140 mmol/L (136-145) Potassium Level 4.1 mmol/L (3.5-5.1) Chloride Level 103 mmol/L (98-107) Carbon Dioxide Level 29 mmol/L (21-32) Anion Gap 8 (6-14) Blood Urea Nitrogen 11 mg/dL (8-26) Creatinine 1.2 mg/dL (0.7-1.3) Estimated GFR (Cockcroft-Gault) 62.0 BUN/Creatinine Ratio 9 (6-20) Glucose Level 153 mg/dL (70-99) Calcium Level 8.9 mg/dL (8.5-10.1) Total Bilirubin 0.2 mg/dL (0.2-1.0) Aspartate Amino Transf (AST/SGOT) 25 U/L (15-37) Alanine Aminotransferase (ALT/SGPT) 26 U/L (16-63) Alkaline Phosphatase 101 U/L (46-116) Creatine Kinase 115 U/L (39-308) Creatine Kinase MB (Mass) 2.5 ng/mL (0.0-3.6) Creatine Kinase MB Relative Index 2.2 % (0-4) Troponin I Quantitative < 0.017 ng/mL (0.000-0.055) BS-Rha-Q-Type Natriuretic Peptide 533 pg/mL (0-124) Total Protein 6.9 g/dL (6.4-8.2) Albumin 3.1 g/dL (3.4-5.0) Albumin/Globulin Ratio 0.8 (1.0-1.7) Nasal Screen MRSA (PCR) Negative (Negative) Medications Current Medications Methylprednisolone Sodium Succinate (SOLU-Medrol 125MG VIAL) 125 mg 1X ONCE IV Last administered on 01/03/17 16:45; Start 01/03/17 at 16:15; Stop 01/03/17 at 16:16; Status DC Albuterol/ Ipratropium (Duoneb) 3 ml 1X ONCE NEB Last administered on 16:15; Start 01/03/17 at 16:15; Stop 01/03/17 at 16:16; Status DC Albuterol Sulfate (Ventolin Neb Soln) 10 mg 1X ONCE CONT NEB Last administered on 01/03/17 16:14; Start 01/03/17 at 16:15; Stop 01/03/17 at 16:16 ; Status DC Albuterol/ Ipratropium (Duoneb) 3 ml STK-MED ONCE .ROUTE ; Start 01/03/17 at 16: 12; Stop 01/03/17 at 16:13; Status DC Albuterol Sulfate (Ventolin Neb Soln) 2.5 mg STK-MED ONCE .ROUTE ; Start at 16:12; Stop 01/03/17 at 16:13; Status DC Albuterol/ Ipratropium (Duoneb) 3 ml RTQID NEB Last administered on 01/03/17 20:49; Start 01/03/17 at 20:00; Stop 01/03/17 at 21:43; Status DC Albuterol Sulfate (Ventolin Neb Soln) 2.5 mg PRN 1X PRN NEB WHEEZING Last administered on 01/03/17 18:34; Start 01/03/17 at 18:15; Stop 01/03/17 at 18:34 ; Status DC Methylprednisolone Sodium Succinate (SOLU-Medrol 40MG VIAL) 50 mg Q8HRS IV Last administered on 01/05/17 05:41; Start 01/03/17 at 22:00 Morphine Sulfate 2 mg PRN Q4HRS PRN IV SEVERE PAIN; Start 01/03/17 at 21:15 Albuterol Sulfate (Ventolin Neb Soln) 2.5 mg PRN Q4HRS PRN NEB SHORTNESS OF BREATH Last administered on 01/04/17 05:16; Start 01/03/17 at 21:15 Warfarin Sodium (Coumadin Per Pharmacy) 1 each PRN DAILY PRN MC SEE COMMENTS Last administered on 01/04/17 13:42; Start 01/03/17 at 21:15 Cyclobenzaprine HCl (Flexeril) 10 mg BID PO Last administered on 01/05/17 08: 00; Start 01/03/17 at 22:00 Folic Acid (Folic Acid) 1 mg DAILY PO Last administered on 01/05/17 08:00; Start 01/04/17 at 09:00 Albuterol/ Ipratropium (Duoneb) 3 ml RTQID NEB Last administered on 01/05/17 08:05; Start 01/04/17 at 08:00 Tramadol HCl (Ultram) 50 mg PRN BID PRN PO MODERATE PAIN Last administered on 22:52; Start 01/03/17 at 21:30 Budesonide (Pulmicort) 0.5 mg RTBID NEB Last administered on 01/05/17 08:05; Start 01/04/17 at 08:00 Gabapentin (Neurontin) 300 mg QHS PO Last administered on 01/04/17 21:11; Start 01/03/17 at 22:00 Metoprolol Tartrate (Lopressor) 50 mg DAILY PO Last administered on 01/05/17 08:01; Start 01/04/17 at 09:00 Multivitamins (Thera M Plus) 1 tab DAILY PO Last administered on 01/05/17 08: 00; Start 01/04/17 at 09:00 Pantoprazole Sodium (Protonix) 40 mg DAILYAC PO Last administered on 01/05/17 07:59; Start 01/04/17 at 07:30 Atorvastatin Calcium (Lipitor) 10 mg QHS PO Last administered on 01/04/17 21: 11; Start 01/03/17 at 22:00 Warfarin Sodium (Coumadin) 5 mg DAILY PO ; Start 01/04/17 at 09:00; Status UNV Warfarin Sodium (Coumadin) 5 mg 1X ONCE PO ; Start 01/03/17 at 23:00; Stop at 23:01; Status Cancel Warfarin Sodium (Coumadin) 2.5 mg 1X WARF ONCE PO Last administered on 13:42; Start 01/04/17 at 16:00; Stop 01/04/17 at 16:01; Status DC Active Scripts Active Reported Warfarin Sodium 5 Mg Tablet 1 Tab PO DAILY Tramadol Hcl 50 Mg Tablet 50 Mg PO BID PRN Thiamine Hcl 100 Mg Tablet 100 Mg PO Pravastatin Sodium 40 Mg Tablet 20 Mg PO BID Omeprazole 20 Mg Tablet.dr 1 Tab PO DAILY Multivitamins (Multivitamin) 1 Each Tablet 1 Tab PO DAILY Metoprolol Tartrate 100 Mg Tablet 50 Mg PO DAILY Gabapentin 300 Mg Capsule 300 Mg PO HS Folic Acid 1 Mg Tablet 1 Tab PO DAILY Cyclobenzaprine Hcl 10 Mg Tablet 10 Mg PO BID Symbicort 160-4.5 Mcg Inhaler (Budesonide/Formoterol Fumarate) 10.2 Gm Hfa.aer.ad 2 Puff IH BID Duoneb 0.5-3(2.5) Mg/3 Ml (Albuterol/Ipratropium) 3 Ml Ampul.neb 3 Ml NEB QID Vitals/I & O Vital Sign - Last 24 Hours 01/04/17 01/04/17 01/04/17 01/04/17 10:53 11:47 15:25 15:57 Temp 97.3 97.4 97.3 97.4 Pulse 89 79 Resp 20 20 B/P (MAP) 141/75 (97) 129/65 (86) Pulse Ox 97 97 95 95 O2 Delivery Nasal Cannula Nasal Cannula O2 Flow Rate 4.0 4.0 01/04/17 01/04/17 01/04/17 01/04/17 19:05 20:00 20:31 20:33 Temp 97.5 97.5 Pulse 86 Resp 24 B/P (MAP) 135/65 (88) Pulse Ox 96 95 95 O2 Delivery Nasal Cannula Nasal Cannula Nasal Cannula Nasal Cannula O2 Flow Rate 3.0 4.0 4.0 4.0 01/04/17 01/04/17 01/05/17 01/05/17 22:19 23:10 00:49 03:10 Temp 96.8 97.4 96.8 97.4 Pulse 79 91 Resp 20 24 B/P (MAP) 125/61 (82) 131/59 (83) Pulse Ox 99 91 O2 Delivery BiPAP/CPAP BiPAP/CPAP BiPAP/CPAP Room Air 01/05/17 01/05/17 01/05/17 01/05/17 03:37 07:00 08:01 08:01 Temp 98.0 98.0 Pulse 81 81 Resp 18 B/P (MAP) 138/73 (94) 138/73 Pulse Ox 99 O2 Delivery BiPAP/CPAP Nasal Cannula Nasal Cannula O2 Flow Rate 3.0 3.0 01/05/17 01/05/17 08:07 08:10 Pulse Ox 98 98 O2 Delivery Nasal Cannula Nasal Cannula O2 Flow Rate 4.0 4.0 Intake and Output 01/04/17 01/04/17 01/05/17 15:00 23:00 07:00 Intake Total 600 ml 250 ml Output Total 900 ml 850 ml Balance -300 ml -600 ml KIRAN DE LA GARZA III DO Jan 05, 2017 09:51
--- NOTE | 2017-01-05 10:25 | CONS ---
DATE OF CONSULTATION: 01/04/2017 ATTENDING PHYSICIAN: Dr. Henry. REASON FOR CONSULTATION: The patient seen in pulmonary consultation at the request of Dr. Henry for increasing shortness of air. HISTORY OF PRESENT ILLNESS: The patient is a 61-year-old that presented with increasing shortness of breath, cough productive of discolored sputum, wheezing. He was noted to be in respiratory failure, placed in the Emergency Room, placed on CPAP, started on steroids. I was asked to see him in consultation. His x-ray revealed no acute infiltrates. The patient denies fever, chills or night sweats. PAST MEDICAL HISTORY: COPD, obesity, tobacco dependence and obstructive sleep apnea. PAST SURGICAL HISTORY: None. FAMILY HISTORY: Diabetes. SOCIAL HISTORY: He continues to smoke. MEDICATIONS: List was reviewed. REVIEW OF SYSTEMS: As indicated above, otherwise 10-point system was reviewed and negative. PHYSICAL EXAMINATION: GENERAL: The patient was in no respiratory distress on CPAP. HEENT: Eyes, the sclerae were nonicteric. NECK: Jugular venous distention was not elevated. No lymphadenopathy. CHEST: Full expansion. LUNGS: Adequate airway flow with mild expiratory wheeze. CARDIOVASCULAR: Regular rate and rhythm with S1, S2, no S3. ABDOMEN: Soft, nontender, nondistended, obese. EXTREMITIES: No clubbing, cyanosis or edema. Chest x-ray revealed no infiltrates. LABORATORY DATA: Reviewed. IMPRESSION: 1. Acute exacerbation of chronic obstructive pulmonary disease. 2. Acute respiratory failure secondary to above. 3. Obstructive sleep apnea. 4. Acute nonspecific bronchitis. 5. Tobacco dependence. PLAN: 1. Concur with current use of CPAP. 2. Steroids. 3. Nebulized treatments. 4. The patient instructed on the importance of discontinuing tobacco use. 5. Continue home medications. I do appreciate the privilege in sharing in patient's care. AMBER AVERY MD DR: SIGIFREDO/thom JOB#: [id number] / [id number]
[2017-01-05 11:00] VITALS: BP 132/66
--- NOTE | 2017-01-05 11:16 | DS ---
DATE OF DISCHARGE: 01/05/2017 ADMISSION DIAGNOSES: Respiratory failure with chronic obstructive pulmonary disease exacerbation. DISCHARGE DIAGNOSIS: Resolving respiratory failure. HOSPITAL COURSE: The patient is a pleasant middle-aged male who presented with respiratory failure and COPD exacerbation. We admitted the patient. We gave him IV steroids, breathing treatments, oxygen. Consulted Pulmonary. He is back to his baseline. I saw the patient and examined this morning. He is doing well. We plan to discharge. DISPOSITION: Home. ACTIVITY: As tolerated. DIET: Low sodium. MEDICATIONS: Please see the MRAD. TOTAL TIME: 31 minutes. KIRAN DE LA GARZA DO DR: NATTY/thom JOB#: [id number] / [id number]
== END 2017-01-05 15:16 | disposition home or self-care (01) | DRG 189 ==
LOC: ER 16:04 → 6 SOUTH 17:00
PROVIDERS: ADMIT Internal Medicine; ATTEND Internal Medicine
PROC: 5A09357 Assistance with Respiratory Ventilation, Less than 24 Consecutive Hours, Continuous Positive Airway Pressure (ICD-10-PCS; principal; 2017-01-03)
DX: J96.01 Acute respiratory failure with hypoxia (principal); J44.1 Chronic obstructive pulmonary disease with (acute) exacerbation; Z68.41 Body mass index [BMI] 40.0-44.9, adult; J44.0 Chronic obstructive pulmonary disease with (acute) lower respiratory infection; J20.9 Acute bronchitis, unspecified; E66.9 Obesity, unspecified; F17.200 Nicotine dependence, unspecified, uncomplicated; G47.33 Obstructive sleep apnea (adult) (pediatric); Z59.0 Homelessness; Z83.3 Family history of diabetes mellitus; Z88.5 Allergy status to narcotic agent; Z91.018 Allergy to other foods
CPT/HCPCS: 36415; 71010; 80053; 82553; 82805; 83880; 84484; 85007; 85027; 85610; 87641; 93005; 94640; 94644; 94660; 96374; J2920; J2930; J7620; 99285-25